=== PATIENT | female | born 1940 | race Caucasian/White ===

== ENCOUNTER → 2018-11-27 08:58 | Outpatient (CLI) | payer MEDICARE, BC, SELFPAY ==
[2018-11-27 10:58] LABS: ALB/GLOB Ratio 1.2 RATIO (0.9-2.4); AST(SGOT) 14 U/L (15-37); Alanine Aminotransfer ALT/SGPT 16 U/L (13-56); Albumin, Serum 3.5 g/dL (3.2-5.0); Alkaline Phosphatase 66 U/L (45-117); Anion Gap 8 (5-15); BUN 20 mg/dL (7-18); Calcium,Total 8.8 mg/dL (8.5-10.1); Chloride 107 mmol/L (98-107); Creatinine, Serum 0.95 mg/dL (0.55-1.02); EST Glomerular Filtration Rate 60 mL/min (>60); Est Glom Filt Rate - Afr Amer 73 mL/min (>60); Glucose 91 mg/dL (74-106); Potassium 4.1 mmol/L (3.5-5.1); Protein, Total 6.5 g/dL (6.4-8.2); Sodium Level 143 mmol/L (136-145)
== END ==
PROVIDERS: Family Provider Family Medicine; PCP Family Medicine; Referring Provider Family Medicine; Visit Provider Family Medicine
DX: E78.2 Mixed hyperlipidemia (principal); R73.01 Impaired fasting glucose
CPT/HCPCS: 36415; 80053

== ENCOUNTER → 2019-10-02 14:16 | Outpatient (CLI) | payer MEDICARE, BC, SELFPAY ==
--- NOTE | 2019-10-02 14:28 | RAD_ITS ---
STUDY: X-RAY - LEFT HUMERUS REASON FOR EXAM: Female, 79 years old. fall, left arm pain and bruising TECHNIQUE: 3 view(s) of the humerus. COMPARISON: None. FINDINGS: There is diffuse demineralization of the humerus. There is no demonstrated fracture or osseous destructive process. 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 There is no demonstrated soft tissue abnormality. RAD/Humerus min 2 Views IMPRESSION: Diffuse osteopenia otherwise normal x-ray examination of the humerus. Electronically Signed: Tish Rush MD at 1:54 EST , Service support ,
--- NOTE | 2019-10-02 14:30 | RAD_ITS ---
STUDY: X-RAY - UNILATERAL RIBS ( LEFT ) WITH CHEST REASON FOR EXAM: Female, 79 years old. fall, left anterior rib pain TECHNIQUE - RIBS: 4 view(s) of the ribs. TECHNIQUE - CHEST: Single AP portable view of the chest. COMPARISON: None. FINDINGS - RIBS: There is severe demineralization of the osseous structures which diminishes the diagnostic sensitivity of this examination, however there is suggestion of subacute to old fracture involving the lateral arches of the left sixth and fifth ribs. FINDINGS - CHEST: The lungs are clear and expanded. There is no demonstrated pleural abnormality. Normal size heart. Normal mediastinum and maureen. Normal visualized pulmonary arteries. There is atherosclerotic calcification of the aortic arch with tortuosity. There are diffuse degenerative changes of the visualized thoracic spine. There is degenerative osteoarthritis of the bilateral shoulders. There is no demonstrated abnormality of the visualized soft tissue structures of the upper abdomen. RAD/Ribs Uni Min 3V w/PA Chest IMPRESSION: RIBS: Possible acute to subacute fracture involving the lateral arches of the left fifth and sixth ribs. CHEST: No acute cardiopulmonary disease. Electronically Signed: Tish Rush MD at 1:59 EST , Service support ,
== END ==
PROVIDERS: Family Provider Family Medicine; PCP Family Medicine; Referring Provider Family Medicine; Visit Provider Family Medicine
DX: M79.603 Pain in arm, unspecified (principal); R07.81 Pleurodynia
CPT/HCPCS: 71101; 73060

== ENCOUNTER 2020-12-02 10:44 | Outpatient (RCR) | payer MEDICARE, SELFPAY | END 2020-12-02 23:59 | LOC: IMMUN 10:44 | PROVIDERS: PCP Family Medicine; Visit Provider Family Medicine | DX: Z23 Encounter for immunization (principal) | CPT/HCPCS: 0011A; 0012A ==

== ENCOUNTER → 2021-01-04 | Outpatient (CLI) | payer MEDICARE, SELFPAY ==
[2021-01-04 09:14] LABS: Bacteria 0 SEEN /hpf (None Seen); Mucous, Urine 0 SEEN /hpf (<or=2+)
[2021-01-04 10:20] LABS: Color, Urine Yellow (Yellow); Glucose, Dipstick Normal (Normal); Ketone-Dipstick Negative (Negative); Leukocyte Esterase-Dipstick 500 /ul (Negative); Nitrite-Dipstick Negative (Negative); Occult Blood-Urine 50 /ul (Negative); Protein-Dipstick Negative (Negative); Urine Bilirubin Dipstick Negative (Negative); Urine Clarity Clear (Clear); Urine Urobilinogen 4 mg/dl (Normal)
[2021-01-04 10:33] LABS: Squamous Epithelial Cells - UA 10-25 SEEN /hpf (5-10); White Blood Cells 0-5 SEEN /hpf (0-5)
[2021-01-04 10:34] LABS: Red Blood Cells-Urine 0-5 SEEN /hpf (0-5)
== END | disposition home or self-care (01) ==
LOC: MFPLAB 09:10 → LABSPEC 09:13
PROVIDERS: PCP Family Medicine; Referring Provider Family Medicine; Visit Provider Family Medicine
DX: R73.01 Impaired fasting glucose (principal)
CPT/HCPCS: 81001

== ENCOUNTER 2021-02-26 10:08 | Emergency (ER) | payer MEDICARE, BC, SELFPAY ==
[2021-02-26 10:10] VITALS: BP 158/75; PULSE 77; RESP 14; TEMP 36.4; O2SAT 98; BMI 26.6
--- NOTE | 2021-02-26 10:33 | EDS_ITS ---
HPI HPI - Female History of Present Illness Chief Complaint: Vag Bleeding Informant: patient and family Pain Pain: Negative for Pelvic Pain, Vulvar Pain and Vaginal Pain Bleeding Issue: Positive for Vaginal bleeding and Passing clots Onset: Today Timing: Intermittent Current Severity: Mild Severity: Mild Associated Symptoms Associated Symptoms: Negative for Dysuria, Frequency and Urgency Test: Positive Sexually: Negative for Active Narrative Narrative: 80-year-old female noticed vaginal bleeding today with small amount of clots. She is on no blood thinners. She denies any recent bruising, nosebleeds, hematuria nor melena. She has had a prior tubal ligation and appendectomy years ago. She denies any other complaints. Prior similar symptoms: No Recent Illness/Hospitalization: No PFSH PFSH Medical History (Updated 02/26/21 @ 11:[address] Ricardo Wilkinson MD) Depressed Hyperlipidemia Hypertension Home Medications citalopram 20 mg PO DAILY 02/26/21 [History Last Taken Unknown] furosemide 20 mg PO DAILY 02/26/21 [History Last Taken Unknown] metoprolol succinate 50 mg PO DAILY 02/26/21 [History Last Taken Unknown] simvastatin 10 mg PO DAILY 02/26/21 [History Last Taken Unknown] Allergy/AdvReac Type Severity Reaction Status Date / Time No Known Allergies Allergy Verified 02/26/21 10:09 Surgical History (Updated 02/26/21 @ 10:40 by Kandi Hernandez) History of appendectomy Hx of tubal ligation Social History Smoking Status: Current every day smoker ROS ROS ED ROS Narrative She denies any recent illness. Review of Systems ROS Unobtainable: Denies due to encephalopathy Constitutional Constitutional ED: Denies fever(s) Eyes Eyes: Denies change in vision ENT ENT ED: Denies ear pain or sore throat Cardiovascular Cardiovascular: Denies chest pain Respiratory/Chest Respiratory/Chest: Denies dyspnea Gastrointestinal Gastrointestinal: Denies abdominal pain, diarrhea, nausea or vomiting Genitourinary Genitourinary ED: Denies dysuria, hematuria or urinary frequency Musculoskeletal Musculoskeletal: Denies myalgias Integumentary Denies rash Neurologic Neurologic: Denies headache(s) Psychiatric Psychiatric: Denies depression Endocrine Endocrinology: Denies polyuria Hematologic/Lymphatic Hematologic/Lymphatic: Denies easy bruising Allergic/Immunologic Allergic/Immunologic ED: Denies urticaria EXAM Physical Exam Narrative Exam Narrative: Older female no acute distress. Vital signs stable afebrile. Exam benign. Const Vital Signs: 02/26/21 10:10 Temperature 97.5 F L Temperature Source Temporal Pulse Rate 77 Respiratory Rate 14 Blood Pressure 158/75 H Blood Pressure Mean 102 Pulse Ox 98 Oxygen Delivery Method Room Air Positive well nourished and well developed General Appearance ED: well developed HEENT Reports moist mucous membranes Negative for trauma or tenderness Eyes PERRL and EOMs intact bilaterally Neck no lymphadenopathy, supple and no JVD Chest Wall inspection of chest normal Resp normal respiratory effort and clear to auscultation bilaterally Cardio regular rate, regular rhythm and no murmurs GI normal to inspection, nondistended, normoactive bowel sounds, soft to palpation, non-tender, non-distended and no masses Auscultation: normoactive bowel sounds Palpation: Negative for tender no CVA tenderness Back/Spine no CVA tenderness Extremity normal to inspection and full ROM General Extremety ED: Negative for edema or tenderness General Extremity: Negative for edema Neuro oriented x3 and CN's II-XII intact bilaterally Sensorium / Orientation: alert, oriented to person, oriented to place and oriented to time Psych mental status grossly normal Skin no rashes or lesions noted MDM MDM MDM Narrative Medical decision making narrative: 80-year-old female with vaginal bleeding. Wi ll obtain a blood count and a pelvic exam. Pelvic exam revealed mild vaginal bleeding with clots. No pain. No palpable mass. No discharge. I spoke with Dr. Anaid Santo of [facility] and she will see the patient in follow-up this week. Patient will receive an outpatient ultrasound through their office. Lab Data Attestation: I reviewed the patient's lab results. Lab results narrative: White count normal. Hemoglobin normal at 13.4. Normal platelets. Labs: Laboratory Results - last 24 hr 02/26/21 10:45 WBC 9.1 RBC 5.01 Hgb 13.4 Hct 43.5 MCV 86.8 MCH 26.7 L MCHC 30.8 L RDW Std Deviation 43.0 RDW Coeff of Jael 13.6 Plt Count 171 MPV 9.0 Discharge Plan Triage Chief Complaint: Vag Bleeding ED Provider: Ricardo Wilkinson Dx/Rx/DC Orders Clinical Impression: Abnormal vaginal bleeding Instructions: ED Dysfunctional Uterine Bleeding Prescriptions: No Action metoprolol succinate 50 mg tablet extended release 24 hr 50 mg PO DAILY RF: 0 simvastatin 10 mg tablet 10 mg PO DAILY RF: 0 citalopram 20 mg tablet 20 mg PO DAILY RF: 0 furosemide 20 mg tablet 20 mg PO DAILY RF: 0 Primary Care Provider: Joey Vidal Referrals: Joey Vidal MD [Primary Care Provider] - Scarlett Starr MD [STAFF PHYSICIAN] - As soon as possible Activity Restrictions/Additional Instructions: Call tomorrow Roxie [employer]ATOR and set up appointment with Dr. Anaid Santo as soon as possible this week. Plenty of fluids and rest. You will continue to have some bleeding if it progressively worsens or you feel lightheaded you need to return. At this time your blood counts are normal. Disposition Disposition: Home, self care
[2021-02-26 10:52] LABS: Hematocrit 43.5 % (37-47); Hemoglobin 13.4 g/dL (12.0-15.0); Mean Corp Hgb Conc 30.8 g/dL (32-36); Mean Corpuscular Hgb 26.7 pg (27.0-32.0); Mean Corpuscular Volume 86.8 fL (81-99); Platelet Count 171 K/mm3 (150-450); RBC Distribution Width CV 13.6 % (11.6-14.6); Red Blood Count 5.01 M/mm3 (4.2-5.4); White Blood Count 9.1 K/mm3 (4.4-11.0)
[2021-02-26 11:45] VITALS: BP 138/72; PULSE 86; RESP 15; O2SAT 96
== END 2021-02-26 11:46 | disposition home or self-care (01) ==
PROVIDERS: Emergency Provider Emergency Medicine; PCP Family Medicine
DX: N93.8 Other specified abnormal uterine and vaginal bleeding (principal); I10 Essential (primary) hypertension; E78.5 Hyperlipidemia, unspecified; F32.9 Major depressive disorder, single episode, unspecified; F17.200 Nicotine dependence, unspecified, uncomplicated; Z79.899 Other long term (current) drug therapy
CPT/HCPCS: 36415; 85027; 99282; J7030; A4216

== ENCOUNTER → 2021-02-28 | Outpatient (CLI) | payer MEDICARE, BC, SELFPAY ==
[2021-02-26 10:10] VITALS: BMI 26.6
--- NOTE | 2021-02-28 | VAGW_PTH ---
PATIENT: CONSTANZA YOUNGBLOOD LOC: [facility] U#:[id number] AGE/SX: 80/F ROOM: RE02/28/[address]: Dr. Scarlett Santo MD : 1940 BED: DIS: 02/28/2021 SPEC #: [id number] RECD: 02/28/21 13:30 STATUS: FERMIN RERonnell #: [id number] ATIYA: 02/28/21 00:[address]: Scarlett Starr DEPT: SURGICAL PATHOLOGY RECD BY: Carlos Vargas ENTERED: 03/01/21 08:59 SP TYPE: VAG WALL OTHR DR: Dr. Rufus Vidal MD Tissues: Vagina, NOS Procedures: Surgery Specimen Level IV HEADER OPERATION: Vaginal lesion PRE-OP DIAGNOSIS: Vaginal bleeding, ulcerative lesion at left vaginal fornix TISSUE SUBMITTED: Vaginal lesion MICROSCOPIC DIAGNOSIS Vaginal lesion, biopsy: Fragments of squamous mucosa with acute and chronic inflammation and recent hemorrhage. Focal changes suggestive of lichen sclerosus. Negative for malignancy. See comment. SJ:rg 03/02/2021 COMMENT Clinical correlation and appropriate follow up are necessary. Case has been reviewed in consultation with Dr. Garcia who concurs with the above diagnosis. IDC:AM MICROSCOPIC DESCRIPTION Slides are reviewed. GROSS DESCRIPTION Received is one container labeled with the patient's name and not further designated. The specimen consists of two fragments of hemorrhagic soft tissue that in aggregate measure 0.7 x 0.2 x 0.2 cm. The specimen is totally submitted in one cassette. / TARA:arcelia 03/01/21 TC:5 CPT: 74251
== END | disposition home or self-care (01) ==
LOC: LABSPEC 11:10
PROVIDERS: PCP Family Medicine; Visit Provider Obstetrics & Gynecology
DX: N93.9 Abnormal uterine and vaginal bleeding, unspecified (principal); L98.499 Non-pressure chronic ulcer of skin of other sites with unspecified severity
CPT/HCPCS: 88305

== ENCOUNTER → 2022-12-11 | Outpatient (CLI) | payer MEDICARE, BC, SELFPAY ==
[2022-12-11 13:03] LABS: PTHIN 75.8 pg/mL (18.4-80.1); Vitamin D,25 Hydroxy 63.4 ng/mL
[2022-12-11 13:41] LABS: AST(SGOT) 16 U/L (15-37); Alanine Aminotransfer ALT/SGPT 15 U/L (13-56); Albumin, Serum 3.3 g/dL (3.2-5.0); Alkaline Phosphatase 56 U/L (45-117); Anion Gap 6 (5-15); BUN 18 mg/dL (7-18); BUN/Creat Ratio 19.5 RATIO (10-20); Chloride 108 mmol/L (98-107); Cholesterol 179 mg/dL (200); Creatinine, Serum 0.92 mg/dL (0.55-1.02); EST Glomerular Filtration Rate 62 mL/min (>60); Est Glom Filt Rate - Afr Amer 75 mL/min (>60); Globulin 3.3 g/dL (2.2-4.2); Glucose 92 mg/dL (74-106); High Density Lipoprotein 71 mg/dL; Potassium 3.6 mmol/L (3.5-5.1); Protein, Total 6.6 g/dL (6.4-8.2); Sodium Level 143 mmol/L (136-145); Thyroid Stim Hormone (TSH) 0.91 uIU/mL (0.358-3.74); Triglycerides 91 mg/dL; Very Low Density Lipoprotein 18 mg/dL (5-40)
== END | disposition home or self-care (01) ==
LOC: MTLAB 11:09
PROVIDERS: PCP Family Medicine; Referring Provider Family Medicine; Visit Provider Family Medicine
DX: E78.2 Mixed hyperlipidemia (principal); M85.80 Other specified disorders of bone density and structure, unspecified site
CPT/HCPCS: 36415; 80053; 80061; 82306; 83970; 84443

== ENCOUNTER 2023-05-16 19:47 | Emergency (ER) | payer MEDICARE, BC, SELFPAY ==
[2023-05-16 19:47] VITALS: BP 142/67; PULSE 67; RESP 18; TEMP 36; O2SAT 98
[2023-05-16 19:55] VITALS: BMI 26.4
[2023-05-16] MEDS: Naproxen 500 MG Tablet PO (20:24)
--- NOTE | 2023-05-16 20:30 | RAD_ITS ---
STUDY: X-RAY - LEFT ANKLE REASON FOR EXAM: Female, 83 years old. pain TECHNIQUE: 3 view(s) of the ankle. COMPARISON: None. FINDINGS: Normal visualized distal tibia and fibula. Normal medial and lateral malleoli. Normal tibiotalar articulation and ankle mortise. Normal visualized calcaneus. Tiny bony density is noted dorsal to the talus possibly representing avulsion fracture The visualized subtalar, talonavicular, calcaneocuboid and tarsal articulations are normal. Mild soft tissue swelling overlying the lateral malleolus RAD/Ankle min 3 Views IMPRESSION: Mild lateral malleolus sprain.. No evidence for acute fracture or dislocation of the ankle. Cannot definitively exclude tiny cortical avulsion of the dorsal surface of the talus Electronically Signed: Teto Alvarado MD at 21:12 EDT ,
--- NOTE | 2023-05-16 20:40 | RAD_ITS ---
STUDY: X-RAY - LEFT FOOT CLINICAL: Female, 83 years old. pain TECHNIQUE: 3 view(s) of the foot. COMPARISON: None. FINDINGS: Normal calcaneus, and tarsal bones. Possible acute tiny avulsion fracture of the dorsal surface of the talus Normal visualized subtalar, talonavicular, calcaneocuboid, tarsal and tarsometatarsal articulations. Normal metatarsi. Normal metatarsophalangeal joint of the great toe. Normal tibial and fibular sesamoid bones. Normal interphalangeal joint of the great toe. Normal phalanges of the great toe. Normal second through fifth metatarsophalangeal joints. Normal interphalangeal joints and phalanges of the lesser toes. Soft tissue swelling of the lateral foot.. RAD/Foot min 3 Views IMPRESSION: Cannot exclude tiny cortical avulsion fracture of the dorsal talus. . Otherwise no evidence for acute fracture or dislocation Electronically Signed: Teto Alvarado MD at 21:21 EDT ,
--- NOTE | 2023-05-16 21:21 | ED.VIS.LOWEX ---
HPI History of Present Illness Chief Complaint: Lower Extremity Injury Narrative Narrative: 83-year-old female presenting with left ankle pain. She states she bumped her ankle on the side of the fridge. She did not notice any pain when this happened extra-depth swelling left lateral ankle and now it hurts. No numbness or tingling. No new injury after this. Otherwise healthy. [facility] Medical History Depressed Hyperlipidemia Hypertension Home Medications citalopram 20 mg tablet 40 mg PO DAILY 02/26/21 [History Last Taken Unknown] furosemide 20 mg tablet 20 mg PO DAILY 02/26/21 [History Last Taken Unknown] metoprolol succinate 50 mg tablet,extended release 24 hr 50 mg PO DAILY 02/26/21 [History Last Taken Unknown] simvastatin 10 mg tablet 10 mg PO DAILY 02/26/21 [History Last Taken Unknown] Allergy/AdvReac Type Severity Reaction Status Date / Time No Known Allergies Allergy Verified 05/16/23 19:54 Surgical History History of appendectomy Hx of tubal ligation Social History Smoking Status: Current every day smoker tobacco type: cigarettes ROS ROS ED Constitutional Constitutional ED: Denies chills, fever(s) or sweats Eyes Eyes: Denies blurry vision or change in vision ENT ENT ED: Denies ear pain or sore throat Cardiovascular Cardiovascular: Denies chest pain, palpitations or racing heartbeat Respiratory/Chest Respiratory/Chest: Denies cough, dyspnea or sputum Gastrointestinal Gastrointestinal: Denies abdominal pain, constipation, diarrhea, nausea or vomiting Genitourinary Genitourinary ED: Denies dysuria, hematuria or urinary frequency Musculoskeletal Musculoskeletal: Reports other Details: Left ankle pain ; Denies arthralgias, myalgias or neck pain Integumentary Reports other; Denies abscess, Abrasions or rash Neurologic Neurologic: Reports other; Denies headache(s), paresthesias or weakness Psychiatric Psychiatric: Denies anxiety, depression, suicidal ideation or suicidal thoughts Endocrine Endocrinology: Denies polydipsia or polyuria EXAM Physical Exam Const Vital Signs: 05/16/23 19:47 Temperature 96.8 F L Temperature Source Temporal Pulse Rate 67 Respiratory Rate 18 Blood Pressure 142/67 H Blood Pressure Mean 92 Pulse Ox 98 Oxygen Delivery Method Room Air Positive well nourished General Appearance ED: NAD HEENT Reports moist mucous membranes normocephalic Cardio regular rate and regular rhythm Extremity Extremity Narrative: Tenderness to palpation and edema over the lateral malleolus of the left ankle. No palpable foot tenderness but there is some edema. No pain at the base of the fifth metatarsal. No testicular pain. Neuro oriented x3 and CN's II-XII intact bilaterally Sensorium / Orientation: alert Motor Exam: strength 5/5 throughout Skin no wounds MDM MDM MDM Narrative Medical decision making narrative: Patient presenting with left ankle pain. There are some edema in the foot as well. Will obtain ankle and foot x-ray. Differential includes ankle sprain, ankle fracture, foot contusion, foot fracture. Patient was given Naprosyn. Left ankle x-ray my interpretation is no acute fracture of the ankle. The foot x-ray my interpretation may show a tiny cortical avulsion fracture of the talus. Given this I will put her in a walking boot give her crutches. She will be given follow-up with Dr. Bingham. Impression: 1. Avulsion fracture of talus 2. Ankle sprain Radiography Diagnostic Testing: Clinical Impression(s) from Imaging Studies Ankle X-Ray 05/16/23 20:30 IMPRESSION: Mild lateral malleolus sprain.. No evidence for acute fracture or dislocation of the ankle. Cannot definitively exclude tiny cortical avulsion of the dorsal surface of the talus Electronically Signed: Teto Alvarado MD at 21:12 EDT , Foot X-Ray 05/16/23 20:40 IMPRESSION: Cannot exclude tiny cortical avulsion fracture of the dorsal talus. . Otherwise no evidence for acute fracture or dislocation Electronically Signed: Teto Alvarado MD at 21:21 EDT , Discharge Plan Triage Chief Complaint: Lower Extremity Injury ED Provider: Otis Jalloh Dx/Rx/DC Orders Instructions: ED Fracture, Foot, ED Ankle Sprain (Adult) Prescriptions: No Action metoprolol succinate 50 mg tablet extended release 24 hr 50 mg PO DAILY Patient Comments: TAKE 1 TABLET BY MOUTH DAILY simvastatin 10 mg tablet 10 mg PO DAILY Patient Comments: TAKE 1 TABLET BY MOUTH DAILY citalopram 20 mg tablet 40 mg PO DAILY Patient Comments: TAKE 1 & 1/2 TABLET BY MOUTH DAILY furosemide 20 mg tablet 20 mg PO DAILY Patient Comments: TAKE 1/2 TABLET BY MOUTH TWICE DAILY Primary Care Provider: Joey Vidal Referrals: Joey Vidal MD [Primary Care Provider] - Amadeo Bingham DPM [Med Staff - Active Staff] - 3-5 Days Disposition Disposition: Home, Self Care
== END 2023-05-16 21:53 | disposition home or self-care (01) ==
PROVIDERS: Emergency Provider Student in an Organized Health Care Education/Training Program; PCP Family Medicine; Visit Provider Student in an Organized Health Care Education/Training Program
DX: S92.155A Nondisplaced avulsion fracture (chip fracture) of left talus, initial encounter for closed fracture (principal); S93.402A Sprain of unspecified ligament of left ankle, initial encounter; W22.09XA Striking against other stationary object, initial encounter; I10 Essential (primary) hypertension; E78.5 Hyperlipidemia, unspecified; F17.210 Nicotine dependence, cigarettes, uncomplicated; Z79.899 Other long term (current) drug therapy
CPT/HCPCS: 73610; 73630; 99283

== ENCOUNTER → 2024-09-25 | Outpatient (CLI) | payer MEDICARE, BC, SELFPAY ==
[2024-09-25 10:25] LABS: Hematocrit 44.7 % (37-47); Hemoglobin 13.9 g/dL (12.0-15.0); Mean Corp Hgb Conc 31.1 g/dL (32-36); Mean Corpuscular Hgb 26.6 pg (27.0-32.0); Mean Corpuscular Volume 85.6 fL (81-99); Platelet Count 193 K/mm3 (150-450); RBC Distribution Width CV 15.1 % (11.6-14.6); RBC Distribution Width SD 47.6 fl (35.1-43.9); Red Blood Count 5.22 M/mm3 (4.2-5.4); White Blood Count 8.6 K/mm3 (4.4-11.0)
[2024-09-25 10:51] LABS: Vitamin B12 426 pg/mL (211-911); Vitamin D,25 Hydroxy 65.6 ng/mL
== END | disposition home or self-care (01) ==
LOC: MTLAB 09:09
PROVIDERS: PCP Family Medicine; Referring Provider Family Medicine; Visit Provider Family Medicine
DX: G31.84 Mild cognitive impairment of uncertain or unknown etiology (principal)
CPT/HCPCS: 36415; 82306; 82607; 84443; 85027

== ENCOUNTER → 2024-10-14 | Outpatient (CLI) | payer MEDICARE, BC, SELFPAY ==
--- NOTE | 2024-10-14 16:23 | LES_PTH ---
PATIENT: CONSTANZA YOUNGBLOOD LOC: [facility] U#:[id number] AGE/SX: 84/F ROOM: RE10/14/[address]: Dr. Rufus Vidal MD : 1940 BED: DIS: 10/14/2024 SPEC #: [id number] RECD: 10/15/24 09:53 STATUS: FERMIN MACARIO #: [id number] ATIYA: 10/14/24 16:[address]: Rufus Vidal DEPT: SURGICAL PATHOLOGY RECD BY: Marcos Hilario Tissues: Skin of forearm, NOS Procedures: Surgery Specimen Level IV HEADER OPERATION: Left forearm biopsy PRE-OP DIAGNOSIS: Suspicious of squamous cell carcinoma TISSUE SUBMITTED: Excision of left forearm MICROSCOPIC DIAGNOSIS Left forearm lesion, excisional biopsy: Well differentiated invasive squamous cell carcinoma, completely excised. Verrucous keratosis. Solar elastosis. See nayana. 10/19/2024 COMMENT Invasive carcinoma measures 0.1cm in greatest dimension. Perineural and lymphvascular invasion are not identified. This case has been reviewed in consultation with Dr. Lakhani and Dr. Acosta who concurs with the above diagnosis. IDC: ALFRED FELDMAN MICROSCOPIC DESCRIPTION Slides are reviewed. GROSS DESCRIPTION Received in fixative is one container labeled with the patient's name and designated Left forearm. The specimen consists of a cristobal-white skin ellipse measuring 2.0 x 1.0cm and up to 0.4cm in thickness. Skin surface shows a white round lesion measuring 1.0 x 0.9cm. The specimen is inked, serially sectioned and submitted entirely in one cassette. 10/15/2024 TC:0 CPT:93963
== END | disposition home or self-care (01) ==
LOC: LABSPEC 10-15 08:43
PROVIDERS: PCP Family Medicine; Visit Provider Family Medicine
DX: C76.42 Malignant neoplasm of left upper limb (principal); L57.8 Other skin changes due to chronic exposure to nonionizing radiation; L82.0 Inflamed seborrheic keratosis
CPT/HCPCS: 88305

== ENCOUNTER → 2025-09-10 | Outpatient (CLI) | payer MEDICARE, BC, SELFPAY ==
--- OUTSIDE RECORDS SUMMARY | 2025-09-10 09:01 | XMS RPT_ITS | CCD ---
Author Organization [facility] Care Team Providers Care [employer] Teacher Name Role Phone DEAAN BRIDGES Admitting Unavailable DEANA BRIDGES Attending Unavailable SELF, REFERRED Referring Unavailable JESSICA, OLEKSANDR Primary Care Unavailable Unavailable Primary Care Provider Unavailabl e Unavailable Primary Care Provider Unavailabl e Unavailable Primary Care Provider Unavailabl e Unavailable Primary Care Provider Unavailabl e Unavailable Primary Care Provider Unavailabl e Siders DO, Tacos L Primary Care Provider DARIAN BELTRAN Admitting Unavailable DARIAN BELTRAN Attending Unavailable EDUARDO, NASHEED Referring Unavailable VASKO, JUAN W Referring Unavailable VASKOJUAN W Referring Unavailable EDUARDO, NASHEED Referring Unavailable EDUARDO, GRACYEED Referring Unavailable Rufus Vidal Referring Unavailable Rufus Vidal Attending Unavailable Ruufs Vidal Primary Care Unavailable Rufus Vidal Attending Unavailable Rufus Vidal Primary Care Unavailable SIDERS, TACOS L Referring Unavailable SIDERS, ATCOS L Primary Care Unavailable SIDERS, TACOS L Primary Care Unavailable SIDERS, TACOS L Referring Unavailable SIDERS, TACOS L Referring Unavailable SIDERS, TACOS L Primary Care Unavailable SIDERS, TACOS L Primary Care Unavailable SIDERS, TACOS L Referring Unavailable SIDERS, TACOS L Referring Unavailable SIDERS, TACOS L Primary Care Unavailable SIDERS, TACOS L Primary Care Unavailable SIDERS, TACOS L Referring Unavailable SIDERS, TACOS L Referring Unavailable SIDERS, TACOS L Primary Care Unavailable SIDERS, TACOS L Primary Care Unavailable SIDERS, TACOS L Referring Unavailable SIDERS, TACOS L Referring Unavailable SIDERS, TACOS L Primary Care Unavailable SIDERS, TACOS L Primary Care Unavailable SIDERS, TACOS L Referring Unavailable SIDERS, TACOS L Primary Care Unavailable SIDERS, ATCOS L Referring Unavailable SIDERS, TACOS L Referring Unavailable SIDERS, TACOS L Primary Care Unavailable SIDERS, TACOS L Primary Care Unavailable SIDERS, TACOS L Referring Unavailable SIDERS, TACOS L Primary Care Unavailable SIDERS, TACOS L Referring Unavailable SIDERS, TACOS L Primary Care Unavailable SIDERS, TACOS L Referring Unavailable SIDERS, TACOS L Primary Care Unavailable SIDERS, TACOS L Referring Unavailable Allergies Allergy Classification Reported Allergen(s) Allergy Type Date of Onset Reaction(s) Facility (2 sources) HYDROcodone; Translations: [HYDROCODONE] Drug Allergy 05-07-[address] [facility] Rep[facility] Medications Current Medications Medication Drug Class(es) Dates Sig (Normalized) Sig (Original) citalopram 20 mg oral tablet (2 sources) Serotonin Reuptake Inhibitor Start: 02-26-2021 take 40 mg by mouth once daily Citalopram Active 40 MG PO DAILY February 26, 2021 12:00am Start: 02-26-2021 take 20 mg by mouth once daily Citalopram Active 20 MG PO DAILY February 25, 2021 11:00pm furosemide 20 mg oral tablet (2 sources) Loop Diuretic Start: 02-26-2021 take 20 mg by mouth once daily Furosemide Active 20 MG PO DAILY February 26, 2021 12:00am 24 hr metoprolol succinate 50 mg extended release oral tablet (2 sources) beta-Adrenergic Grzegorz Start: 02-26-2021 take 50 mg by mouth once daily Metoprolol Succinate Active 50 MG PO DAILY February 26, 2021 12:00am simvastatin 10 mg oral tablet (2 sources) HMG-CoA Reductase Inhibitor Start: 02-26-2021 take 10 mg by mouth once daily Simvastatin Active 10 MG PO DAILY February 26, 2021 12:00am Problems Active Problems Problem Classification Problem Date Documented Date Episodic/Chronic Cardiac dysrhythmias (2 sources) Unspecified atrial fibrillation; Translations: [Unspecified atrial fibrillation] Onset: 07-15-2024 Chronic Chronic kidney disease (2 sources) Chronic kidney disease, unspecified; Translations: [Chronic kidney disease, unspecified] Onset: 02-26-2025 Chronic Deficiency and other anemia (2 sources) Iron deficiency anemia, unspecified; Translations: [Iron deficiency anemia, unspecified] Onset: 12-16-2024 Episodic Diseases of white blood cells (2 sources) Elevated white blood cell count, unspecified; Translations: [Elevated white blood cell count, unspecified] Onset: 05-08-2024 Chronic Disorders of lipid metabolism (2 sources) Hyperlipidemia, unspecified; Translations: [Hyperlipidemia, unspecified] Onset: 05-01-2024 Chronic E Codes: Fall (2 sources) Unspecified fall, initial encounter; Translations: [Unspecified fall, initial encounter] Onset: 10-17-2024 Episodic Essential hypertension (2 sources) Essential (primary) hypertension; Translations: [Essential (primary) hypertension] Onset: 02-26-2025 Chronic Open wounds of head; neck; and trunk (2 sources) Laceration without foreign body of other part of head, initial encounter; Translations: [Laceration without foreign body of other part of head, initial encounter] Onset: 10-17-2024 Episodic Other female genital disorders (2 sources) Abnormal vaginal bleeding; Translations: [Abnormal uterine and vaginal bleeding, unspecified] 02-26-2021 Chronic Other hereditary and degenerative nervous system conditions (1 source) Mild cognitive impairment, so stated; Translations: [Mild cognitive impairment of uncertain or unknown etiology] Onset: 10-22-2024 Chronic Other skin disorders (1 source) Disorder of the skin and subcutaneous tissue, unspecified; Translations: [Disorder of the skin and subcutaneous tissue, unspecified] Onset: 11-06-2024 Episodic Thyroid disorders (2 sources) Hypothyroidism, unspecified; Translations: [Hypothyroidism, unspecified] Onset: 02-26-2025 Chronic Unclassified (1 source) Contusion and laceration of cerebrum, unspecified, with loss of consciousness status unknown, initial encounter; Translations: [Contusion and laceration of cerebrum, unspecified, with loss of consciousness status unknown, initial encounter] Onset: 10-17-2024 Urinary tract infections (2 sources) Urinary tract infection, site not specified; Translations: [Urinary tract infection, site not specified] Onset: 10-17-2024 Episodic Past or Other Problems Problem Classification Problem Date Documented Da te Episodic/Chronic Deficiency and other anemia (2 sources) Anemia, unspecified; Translations: [Anemia, unspecified] Onset: 05-01-2024 Episodic Gastrointestinal hemorrhage (2 sources) Hemorrhage of anus and rectum; Translations: [Hemorrhage of anus and rectum] Onset: 08-14-2024 Episodic Nutritional deficiencies (2 sources) Iron deficiency; Translations: [Iron deficiency] Onset: 08-12-2024 Episodic Unclassified (1 source) Contusion and laceration of cerebrum, unspecified, with loss of consciousness status unknown, initial encounter; Translations: [Contusion and laceration of cerebrum, unspecified, with loss of consciousness status unknown, initial encounter] Onset: 10-17-2024 Results Test Name Value Interpretation Reference Range Facility CBCon 02-26-2025 Erythrocyte distribution width (RBC) [Ratio] 13.9 % Normal 11.8-14.4 [facility] Comment on above: Performed By: #### B MP, LIVP, CBC #### [facility] [address] [place] [address] Community Health Navigator: Bin Mckeon MD #### KIKE GLYHGB #### [address] [id number] Community Health Navigator: Willie Garcia MD Hematocrit (Bld) [Volume fraction] 35.3 % Low 36.3-47.1 [facility] Comment on above: Performed By: #### B MP, LIVP, CBC #### [facility] [address] [place] [address] Community Health Navigator: Bin Mckeon MD #### LIPR, GLYHGB #### [address] [id number] Community Health Navigator: Willie Garcia MD Hemoglobin (Bld) [Mass/Vol] 11.3 g/dL Low 11.9-15.1 [facility] Comment on above: Performed By: #### B MP, LIVP, CBC #### [facility] [address] [place] [address] Community Health Navigator: Bin Mckeon MD #### LIPR, GLYHGB #### [address] [address] Community Health Navigator: Willie Garcia MD MCH (RBC) [Entitic mass] 27.7 pg Normal 25.2-33.5 [facility] Comment on above: Performed By: #### B MP, LIVP, CBC #### [facility] [address] [place] [address] Community Health Navigator: Bin Mckeon MD #### LIPR, GLYHGB #### [address] [address] Community Health Navigator: Willie Garcia MD MCHC (RBC) [Mass/Vol] 32.0 g/dL Normal 28.4-34.8 [facility] Comment on above: Performed By: #### B MP, LIVP, CBC #### [facility] [address] [place] [address] Community Health Navigator: Bin Mckeon MD #### LIPR, GLYHGB #### [address] [address] Community Health Navigator: Willie Garcia MD MCV (RBC) [Entitic vol] 86.5 fL Normal 82.6-102.9 [facility] Comment on above: Performed By: #### B MP, LIVP, CBC #### [facility] [address] [place] [address] Community Health Navigator: Bin Mckeon MD #### LIPR, GLYHGB #### [address] [address] Community Health Navigator: Willie Garcia MD NRBC Automated 0.0 per 100 WBC Normal 0.0 [facility] Comment on above: Performed By: #### B MP, LIVP, CBC #### [facility] [address] [place] [address] Community Health Navigator: Bin Mckeon MD #### LIPR, GLYHGB #### [address] [address] Community Health Navigator: Willie Garcia MD Platelet mean volume (Bld) [Entitic vol] 9.9 fL Normal 8.1-13.5 [facility] Comment on above: Performed By: #### B MP, LIVP, CBC #### [facility] [address] [place] [address] Community Health Navigator: Bin Mckeon MD #### LIPR, GLYHGB #### [address] [address] Community Health Navigator: Willie Garcia MD Platelets (Bld) [#/Vol] 138 10*3/uL Normal 138-453 [facility] Comment on above: Performed By: #### B MP, LIVP, CBC #### [facility] [address] [place] [address] Community Health Navigator: Bin Mckeon MD #### LIPR, GLYHGB #### [address] [address] Community Health Navigator: Willie Garcia MD RBC (Bld) [#/Vol] 4.08 10*6/uL Normal 3.95-5.11 [facility] Comment on above: Performed By: #### B MP, LIVP, CBC #### [facility] [address] [place] [address] Community Health Navigator: Bin Mckeon MD #### LIPR, GLYHGB #### [address] [address] Community Health Navigator: Willie Garcia MD WBC (Bld) [#/Vol] 5.7 10*3/uL Normal 3.5-11.3 [facility] Comment on above: Performed By: #### B MP, LIVP, CBC #### [facility] [address] [place] [address] Community Health Navigator: Bin Mckeon MD #### LIPR, GLYHGB #### [address] [address] Community Health Navigator: Willie Garcia MD Comp Metabolic Profon 2024 Albumin [Mass/Vol] 3.9 g/dL Normal 3.5-5.2 [facility] Comment on above: Performed By: #### B MP, LIVP, CBC #### [facility] [address] [place] [address] Community Health Navigator: Bin Mckeon MD #### LIPR, GLYHGB #### [address] [address] Community Health Navigator: Willie Garcia MD Albumin/Glob Ratio 1.3 Normal 1.0-2.5 [facility] Comment on above: Performed By: #### B MP, LIVP, CBC #### [facility] [address] [place] [address] Community Health Navigator: Bin Mckeon MD #### LIPR, GLYHGB #### [address] [address] Community Health Navigator: Willie Garcia MD Alkaline Phos 90 U/L Normal 35-104 [facility] Comment on above: Performed By: #### B MP, LIVP, CBC #### [facility] [address] [place] [address] Community Health Navigator: Bin Mckeon MD #### LIPR, GLYHGB #### [address] [address] Community Health Navigator: Willie Garcia MD ALT [Catalytic activity/Vol] 6 U/L Low 10-35 [facility] Comment on above: Performed By: #### B MP, LIVP, CBC #### [facility] [address] [place] [address] Community Health Navigator: Bin Mckeon MD #### LIPR, GLYHGB #### [address] [address] Community Health Navigator: Willie Garcia MD Anion gap [Moles/Vol] 10 mmol/L Normal 9-16 [facility] Comment on above: Performed By: #### B MP, LIVP, CBC #### [facility] [address] [place] [address] Community Health Navigator: Bin Mckeon MD #### LIPR, GLYHGB #### [address] [address] Community Health Navigator: Willie Garcia MD AST [Catalytic activity/Vol] 17 U/L Normal -[address] [place] [address] Comment on above: Performed By: #### B MP, LIVP, CBC #### [facility] [address] [place] [address] Community Health Navigator: Bin Mckeon MD #### LIPR, GLYHGB #### [address] [address] Community Health Navigator: Willie Gracia MD Bilirubin [Mass/Vol] 0.4 mg/dL Normal 0.00-1.20 [facility] Comment on above: Performed By: #### B MP, LIVP, CBC #### [facility] [address] [place] [address] Community Health Navigator: Bin Mckeon MD #### LIPR, GLYHGB #### [address] [address] Community Health Navigator: Willie Garcia MD Calcium [Mass/Vol] 9.8 mg/dL Normal 8.8-10.2 [facility] Comment on above: Performed By: #### B MP, LIVP, CBC #### [facility] [place] [address] Community Health Navigator: Bin Mckeon MD #### LIPR, GLYHGB #### [address] [address] Community Health Navigator: Willie Garcia MD Chloride [Moles/Vol] 109 mmol/L High 98-107 [facility] Comment on above: Performed By: #### B MP, LIVP, CBC #### [facility] [address] [place] [address] Community Health Navigator: Bin Mckeon MD #### KIKE, GLYHGB #### [address] [address] Community Health Navigator: Willie Garcia MD CO2 [Moles/Vol] 24 mmol/L Normal 20-31 [facility] Comment on above: Performed By: #### B MP, LIVP, CBC #### [facility] [address] [place] [address] Community Health Navigator: Bin Mckeon MD #### LIPR, GLYHGB #### [address] [address] Community Health Navigator: Willie Garcia MD Creatinine [Mass/Vol] 1.6 mg/dL High 0.50-0.90 [facility] Comment on above: Performed By: #### B MP, LIVP, CBC #### [facility] [address] [place] [address] Community Health Navigator: Bin Mckeon MD #### KIKE, GLYHGB #### [address] [address] Community Health Navigator: Willie Garcia MD GFR/1.73 sq M.predicted among non-blacks MDRD (S/P/Bld) [Vol rate/Area] 32 mL/min/{1.73_m2} Low >60 [facility] Comment on above: Result Comment: These results are not intended for use in patients <18 years of age. eGFR results are calculated without a race factor using the 2020 CKD-EPI equation. Careful clinical correlation is recommended, particularly when comparing to results calculated using previous equations. The CKD-EPI equation is less accurate in patients with extremes of muscle mass, extra-renal metabolism of creatine, excessive creatine ingestion, or following therapy that affects renal tubular secretion. Performed By: #### B MP, LIVP, CBC #### [facility] [address] [place] [address] Community Health Navigator: Bin Mckeon MD #### KIKE GLYHGB #### [address] [address] Community Health Navigator: Willie Garcia MD Glucose [Mass/Vol] 85 mg/dL Normal 82-115 [facility] Comment on above: Performed By: #### B MP, LIVP, CBC #### [facility] [address] [place] [address] Community Health Navigator: Bin Mckeon MD #### LIPZander, GLYHGB #### [address] [address] Community Health Navigator: Willie Garcia MD Potassium [Moles/Vol] 5.0 mmol/L Normal 3.7-5.3 [facility] Comment on above: Performed By: #### B MP, LIVP, CBC #### [facility] [address] [place] [address] Community Health Navigator: Bin Mckeon MD #### LIPR, GLYHGB #### [address] [address] Community Health Navigator: Willie Garcia MD Protein [Mass/Vol] 6.9 g/dL Normal 6.6-8.7 [facility] Comment on above: Performed By: #### B MP, LIVP, CBC #### [facility] [address] [place] [address] Community Health Navigator: Bin Mckeon MD #### LIPR, GLYHGB #### [address] [address] Community Health Navigator: Willie Garcia MD Sodium [Moles/Vol] 142 mmol/L Normal 136-145 [facility] Comment on above: Performed By: #### B MP, LIVP, CBC #### [facility] [address] [place] [address] Community Health Navigator: Bin Mckeon MD #### LIPR, GLYHGB #### [address] [address] Community Health Navigator: Willie Garcia MD Urea nitrogen [Mass/Vol] 40 mg/dL High - [facility] Comment on above: Performed By: #### B MP, LIVP, CBC #### [facility] [place] [address] Community Health Navigator: Bin Mckeon MD #### LIPR, GLYHGB #### [address] [address] Community Health Navigator: Willie Garcia MD Iron Binding Cap.on 05-23-20 25 % Fe Saturation 19 % Low 20-55 [facility] Comment on above: Performed By: #### B MP, LIVP, CBC #### [facility] [place] [address] Community Health Navigator: Bin Mckeon MD #### LIPR, GLYHGB #### [address] [address] Community Health Navigator: Willie Garcia MD Iron [Mass/Vol] 43 ug/dL Normal 37-145 [facility] Comment on above: Performed By: #### B MP, LIVP, CBC #### [facility] [address] [place] [address] Community Health Navigator: Bin Mckeon MD #### LIPR, GLYHGB #### [address] [phone] Community Health Navigator: Willie Garcia MD Total Fe Binding Cap 226 ug/dL Low 250-450 [facility] Comment on above: Performed By: #### B MP, LIVP, CBC #### [facility] [address] [place] [address] Community Health Navigator: Bin Mckeon MD #### LIPR, GLYHGB #### [address] [address] Community Health Navigator: Willie Garcia MD Unbound Fe Bind Cap 183 ug/dL Normal 112-347 [facility] Comment on above: Performed By: #### B MP, LIVP, CBC #### [facility] [address] [place] [address] Community Health Navigator: Bin Mckeon MD #### LIPR, GLYHGB #### [address] [address] Community Health Navigator: Willie Garcia MD Lipid Prof, Fastingon 2024 Cholesterol [Mass/Vol] 120 mg/dL Normal 0-199 [facility] Comment on above: Result Comment: Cholesterol Guidelines: <200 Desirable 200-240 Borderline >240 Undesirable Performed By: #### B MP, LIVP, CBC #### [facility] [address] [place] [address] Community Health Navigator: Bin Mckeon MD #### LIPR, GLYHGB #### [address] [address] Community Health Navigator: Willie Garcia MD Cholesterol in HDL [Mass/Vol] 37 mg/dL Low >40 [facility] Comment on above: Result Comment: HDL Guidelines: <40 Undesirable 40-59 Borderline >59 Desirable Performed By: #### B MP, LIVP, CBC #### [facility] [place] [address] Community Health Navigator: Bin Mckeon MD #### LIPR, GLYHGB #### [address] [address] Community Health Navigator: Willie Garcia MD Cholesterol in LDL [Mass/Vol] 65 mg/dL Normal 0-100 [facility] Comment on above: Result Comment: LDL Guidelines: <100 Desirable 100-129 Near to/above Desirable 130-159 Borderline >159 Undesirable Direct (measured) LDL and calculated LDL are not interchangeable tests. Performed By: #### B MP, LIVP, CBC #### [facility] [address] [place] [address] Community Health Navigator: Bin Mckeon MD #### LIPR, GLYHGB #### [address] [address] Community Health Navigator: Willie Garcia MD Cholesterol in VLDL [Mass/Vol] 18 mg/dL Normal 1-30 [facility] Comment on above: Performed By: #### B MP LIVP, CBC #### [facility] [address] [place] [address] Community Health Navigator: Bin Mckeon MD #### LIPR, GLYHGB #### [address] [address] Community Health Navigator: Willie Garcia MD Cholesterol.total/Chol esterol in HDL [Mass ratio] 3.2 {ratio} Normal <5.0 [facility] Comment on above: Performed By: #### B CLIF LIVP, CBC #### [facility] [address] [place] [address] Community Health Navigator: Bin Mckeon MD #### LIPR, GLYHGB #### [address] [address] Community Health Navigator: Willie Garcia MD Triglyceride,Fasting 89 mg/dL Normal 0-149 [facility] Comment on above: Result Comment: Triglyceride Guidelines: <150 Desirable 150-199 Borderline 200-499 High >499 Very high Based on AHA Guidelines for fasting triglyceride, July 2012. Performed By: #### B CLIF LIVP, CBC #### [facility] [address] [place] [address] Community Health Navigator: Bin Mckeon MD #### LIPR, GLYHGB #### [address] [address] Community Health Navigator: Willie Garcia MD Thyroid Stim. Horm.on 2024 Thyroid Stim. Horm. 0.41 uIU/mL Normal 0.27-4.20 [facility] Comment on above: Performed By: #### B MP LIVP, CBC #### [facility] [address] [place] [address] Community Health Navigator: Bin Mckeon MD #### LIPR, GLYHGB #### [facility] [address] [place], [place] [id number] Community Health Navigator: Willie Garcia MD Thyroxine, Freeon 02-26-2025 Thyroxine, Free 1.6 ng/dL Normal 0.93-1.70 [facility] Comment on above: Performed By: #### B MP, LIVP, CBC #### [facility] [address] [place] [place], [place] [id number] Community Health Navigator: Bin Mckeon MD #### LIPR, GLYHGB #### [facility] [address] [place], [place] [id number] Community Health Navigator: Willie Garcia MD CBCon 12-16-2024 Erythrocyte distribution width (RBC) [Ratio] 14.2 % 11.8 - 14.4 % [facility] Hematocrit (Bld) [Volume fraction] 36.3 % 36.3 - 47.1 % [facility] Hemoglobin (Bld) [Mass/Vol] 11.3 g/dL Low 11.9 - 15.1 g/dL [facility] Interpretation and review of laboratory results Abnormal [facility] MCH (RBC) [Entitic mass] 27.4 pg 25.2 - 33.5 pg [facility] MCHC (RBC) [Mass/Vol] 31.1 g/dL 28.4 - 34.8 g/dL [facility] MCV (RBC) [Entitic vol] 87.9 fL 82.6 - 102.9 fL [facility] Nucleated RBC/100 WBC (Bld) [Ratio] 0 % 0.0 per 100 WBC [facility] Platelet mean volume (Bld) [Entitic vol] 10 fL 8.1 - 13.5 fL [facility] Platelets (Bld) [#/Vol] 131 10*3/uL Low [facility] RBC (Bld) [#/Vol] 4.13 10*6/uL 3.95 - 5.1 1 m/uL [facility] WBC other (Bld) [#/Vol] 4.8 [facility] Erythrocyte distribution width (RBC) [Ratio] 14.2 % Normal 11.8-14.4 [facility] Comment on above: Performed By: #### B MP, LIVP, CBC #### [facility] [address] [place] [address] Community Health Navigator: Bin Mckeon MD #### LIPR, GLYHGB #### [address] [address] Community Health Navigator: Willie Garcia MD Hematocrit (Bld) [Volume fraction] 36.3 % Normal 36.3-47.1 [facility] Comment on above: Performed By: #### B MP, LIVP, CBC #### [facility] [address] [place] [address] Community Health Navigator: Bin Mckeon MD #### LIPR, GLYHGB #### [address] [address] Community Health Navigator: Willie Garcia MD Hemoglobin (Bld) [Mass/Vol] 11.3 g/dL Low 11.9-15.1 [facility] Comment on above: Performed By: #### B MP, LIVP, CBC #### [facility] [address] [place] [address] Community Health Navigator: Bin Mckeon MD #### LIPR, GLYHGB #### [address] [address] Community Health Navigator: Willie Garcia MD MCH (RBC) [Entitic mass] 27.4 pg Normal 25.2-33.5 [facility] Comment on above: Performed By: #### B MP, LIVP, CBC #### [facility] [address] [place] [address] Community Health Navigator: Bin Mckeon MD #### LIPR, GLYHGB #### [address] [id number] Community Health Navigator: Willie Garcia MD MCHC (RBC) [Mass/Vol] 31.1 g/dL Normal 28.4-34.8 [facility] Comment on above: Performed By: #### B MP LIVP, CBC #### [facility] [place] [address] Community Health Navigator: Bin Mckeon MD #### LIPR, GLYHGB #### [address] [id number] Community Health Navigator: Willie Garcia MD MCV (RBC) [Entitic vol] 87.9 fL Normal 82.6-102.9 [facility] Comment on above: Performed By: #### B MP, LIVP, CBC #### [facility] [address] [place] [address] Community Health Navigator: Bin Mckeon MD #### KIKE, GLYHGB #### [address] [address] Community Health Navigator: Willie Garcia MD NRBC Automated 0.0 per 100 WBC Normal 0.0 [facility] Comment on above: Performed By: #### B MP, LIVP, CBC #### [facility] [address] [place] [address] Community Health Navigator: Bin Mckeon MD #### LIPR, GLYHGB #### [address] [address] Community Health Navigator: Willie Garcia MD Platelet mean volume (Bld) [Entitic vol] 10.0 fL Normal 8.1-13.5 [facility] Comment on above: Performed By: #### B MP, LIVP, CBC #### [facility] [address] [place] [address] Community Health Navigator: Bin Mckeon MD #### LIPR, GLYHGB #### [address] [address] Community Health Navigator: Willie Garcia MD Platelets (Bld) [#/Vol] 131 10*3/uL Low 138-453 [facility] Comment on above: Performed By: #### B MP, LIVP, CBC #### [facility] [address] [place] [address] Community Health Navigator: Bin Mckeon MD #### LIPR, GLYHGB #### [address] [address] Community Health Navigator: Willie Garcia MD RBC (Bld) [#/Vol] 4.13 10*6/uL Normal 3.95-5.11 [facility] Comment on above: Performed By: #### B MP, LIVP, CBC #### [facility] [address] [place] [address] Community Health Navigator: Bin Mckeon MD #### LIPR, GLYHGB #### [address] [address] Community Health Navigator: Willie Garcia MD WBC (Bld) [#/Vol] 4.8 10*3/uL Normal 3.5-11.3 [facility] Comment on above: Performed By: #### B MP, LIVP, CBC #### [facility] [address] [place] [address] Community Health Navigator: Bin Mckeon MD #### LIPR, GLYHGB #### [address] [address] Community Health Navigator: Willie Garcia MD Iron Binding Cap.on 12-17-19 25 % Fe Saturation 24 % Normal 20-55 [facility] Comment on above: Performed By: #### B MP LIVP, CBC #### [facility] [address] [place] [address] Community Health Navigator: Bin Mckeon MD #### LIPR, GLYHGB #### [address] [address] Community Health Navigator: Willie Garcia MD Iron [Mass/Vol] 56 ug/dL Normal 37-145 [facility] Comment on above: Performed By: #### B MP LIVP, CBC #### [facility] [address] [place] [address] Community Health Navigator: Bin Mckeon MD #### LIPR, GLYHGB #### [address] [address] Community Health Navigator: Willie Garcia MD Total Fe Binding Cap 229 ug/dL Low 250-450 [facility] Comment on above: Performed By: #### B MP LIVP, CBC #### [facility] [address] [place] [address] Community Health Navigator: Bin Mckeon MD #### LIPR, GLYHGB #### [address] [address] Community Health Navigator: Willie Garcia MD Unbound Fe Bind Cap 173 ug/dL Normal 112-347 [facility] Comment on above: Performed By: #### B MP, LIVP, CBC #### [facility] [address] [place] [address] Community Health Navigator: Bin Mckeon MD #### LIPR GLYHGB #### [address] [address] Community Health Navigator: Willei Garcia MD Iron and TIBCon 12-16-2024 Interpretation and review of laboratory results Abnormal [facility] Iron [Mass/Vol] 56 ug/dL 37 - 145 ug/dL [facility] Iron binding capacity [Mass/Vol] 229 ug/dL Low 250 - 450 ug/dL [facility] Iron saturation [Mass fraction] 24 % 20 - 55 % [facility] UIBC 173 ug/dL 112 - 347 ug/dL [facility] CBCon 11-18-2024 Erythrocyte distribution width (RBC) [Ratio] 14.1 % 11.8 - 14.4 % [facility] Hematocrit (Bld) [Volume fraction] 36.1 % Low 36.3 - 47.1 % [facility] Hemoglobin (Bld) [Mass/Vol] 11.2 g/dL Low 11.9 - 15.1 g/dL [facility] Interpretation and review of laboratory results Abnormal [facility] MCH (RBC) [Entitic mass] 27.5 pg 25.2 - 33.5 pg [facility] MCHC (RBC) [Mass/Vol] 31.0 g/dL 28.4 - 34.8 g/dL [facility] MCV (RBC) [Entitic vol] 88.5 fL 82.6 - 102.9 fL [facility] Nucleated RBC/100 WBC (Bld) [Ratio] 0.0 % 0.0 per 100 WBC [facility] Platelet mean volume (Bld) [Entitic vol] 9.7 fL 8.1 - 13.5 fL [facility] Platelets (Bld) [#/Vol] 167 10*3/uL [facility] RBC (Bld) [#/Vol] 4.08 10*6/uL 3.95 - 5.1 1 m/uL [facility] WBC other (Bld) [#/Vol] 5.4 [facility] Erythrocyte distribution width (RBC) [Ratio] 14.1 % Normal 11.8-14.4 [facility] Comment on above: Performed By: #### F JUVENTINO, CBC #### [facility] [address] [facility] [place] [address] Community Health Navigator: Bin Mckeon MD Hematocrit (Bld) [Volume fraction] 36.1 % Low 36.3-47.1 [facility] Comment on above: Performed By: #### F JUVENTINO, CBC #### [facility] [address] [place] [address]. [place] [address] Community Health Navigator: Bin Mckeon MD Hemoglobin (Bld) [Mass/Vol] 11.2 g/dL Low 11.9-15.1 [facility] Comment on above: Performed By: #### F JUVENTINO, CBC #### [facility] [address] [place] [address]. [place] [address] Community Health Navigator: Bin Mckeon MD MCH (RBC) [Entitic mass] 27.5 pg Normal 25.2-33.5 [facility] Comment on above: Performed By: #### F JUVENTINO CBC #### [facility] [address] [place] [address]. [place] [address] Community Health Navigator: Bin Mckeon MD MCHC (RBC) [Mass/Vol] 31.0 g/dL Normal 28.4-34.8 [facility] Comment on above: Performed By: #### F JUVENTINO, CBC #### [facility] [facility] [place] [address] Community Health Navigator: Bin Mckeon MD MCV (RBC) [Entitic vol] 88.5 fL Normal 82.6-102.9 [facility] Comment on above: Performed By: #### F JUVENTINO, CBC #### [facility] [address] [place] [address]. [place] [address] Community Health Navigator: Bin Mckeon MD NRBC Automated 0.0 per 100 WBC Normal 0.0 [facility] Comment on above: Performed By: #### F JUVENTINO, CBC #### [facility] [address] [facility] [place] [address] Community Health Navigator: Bin Mckeon MD Platelet mean volume (Bld) [Entitic vol] 9.7 fL Normal 8.1-13.5 [facility] Comment on above: Performed By: #### F JUVENTINO, CBC #### [facility] [address] [facility] [place] [address] Community Health Navigator: Bin Mckeon MD Platelets (Bld) [#/Vol] 167 10*3/uL Normal 138-453 [facility] Comment on above: Performed By: #### F JUVENTINO, CBC #### [facility] [address] [place] [address]. [place] [address] Community Health Navigator: Bin Mckeon MD RBC (Bld) [#/Vol] 4.08 10*6/uL Normal 3.95-5.11 [facility] Comment on above: Performed By: #### F JUVENTINO, CBC #### [facility] [address] [facility] [place] [address] Community Health Navigator: Bin Mckeon MD WBC (Bld) [#/Vol] 5.4 10*3/uL Normal 3.5-11.3 [facility] Comment on above: Performed By: #### F JUVENTINO, CBC #### [facility] [place] [address] Community Health Navigator: Bin Mckeon MD Ferritinon 11-18-2024 Ferritin [Mass/Vol] 224 ng/mL [facility] Comment on above: FERRITIN Reference Ranges: Adult Males 20 - 60 years: 30 - 400 ng/mL Adult females 17 - 60 years: 13 - 150 ng/mL Adults greater than 60 years: no established reference range Pediatrics: no established reference range [facility] Ferritin [Mass/Vol] 224 ng/mL Normal [facility] Comment on above: Result Comment: FERRITIN Reference Ranges: Adult Males 20 - 60 years: 30 - 400 ng/mL Adult females 17 - 60 years: 13 - 150 ng/mL Adults greater than 60 years: no established reference range Pediatrics: no established reference range Performed By: #### F JUVENTINO, CBC #### [facility] [address] [place] [address] Community Health Navigator: Bin Mckeon MD Basic Metabolic Panelon 10-07 Anion gap [Moles/Vol] 11 mmol/L 9 - 16 mmol/L [facility] Calcium [Mass/Vol] 9.5 mg/dL 8.8 - 10. 2 mg/dL [facility] Chloride [Moles/Vol] 109 mmol/L High 98 - 10 7 mmol/L [facility] CO2 [Moles/Vol] 20 mmol/L 20 - 31 mmol/L [facility] Creatinine [Mass/Vol] 1.4 mg/dL High 0.50 - 0.90 mg/dL [facility] Epidemic Sound Est, Glom Filt Rate 38 Low - PINF [facility] Comment on above: These results are not intended for use in patients <18 years of age. eGFR results are calculated without a race factor using the 2020 CKD-EPI equation. Careful clinical correlation is recommended, particularly when comparing to results calculated using previous equations. The CKD-EPI equation is less accurate in patients with extremes of muscle mass, extra-renal metabolism of creatine, excessive creatine ingestion, or following therapy that affects renal tubular secretion. Glucose [Mass/Vol] 102 mg/dL 82 - 115 mg/dL [facility] Potassium [Moles/Vol] 4.7 mmol/L 3.7 - 5.3 mmol/L [facility] Comment on above: Specimen hemolysis h as exceeded the interference as defined by Eldon. Value may be falsely increased. Suggest recollection if clinically indicated. Sodium [Moles/Vol] 140 mmol/L 136 - 145 mmol/L [facility] Urea nitrogen [Mass/Vol] 35 mg/dL High 8 - 23 mg/dL [facility] Basic Metabolic Profon 10-21 Anion gap [Moles/Vol] 11 mmol/L Normal 9-16 [facility] Comment on above: Performed By: #### B MP, LIVP, CBC #### [facility] [address] [place] [address] Community Health Navigator: Bin Mckeon MD #### LIPR, GLYHGB #### [address] [address] Community Health Navigator: Willie Garcia MD Calcium [Mass/Vol] 9.5 mg/dL Normal 8.8-10.2 [facility] Comment on above: Performed By: #### B MP, LIVP, CBC #### [facility] [place] [address] Community Health Navigator: Bin Mckeon MD #### LIPR, GLYHGB #### [address] [address] Community Health Navigator: Willie Garcia MD Chloride [Moles/Vol] 109 mmol/L High 98-107 [facility] Comment on above: Performed By: #### B MP, LIVP, CBC #### [facility] [address] [place] [address] Community Health Navigator: Bin Mckeon MD #### LIPR, GLYHGB #### [address] [address] Community Health Navigator: Willie Garcia MD CO2 [Moles/Vol] 20 mmol/L Normal 20-31 [facility] Comment on above: Performed By: #### B MP, LIVP, CBC #### [facility] [place] [address] Community Health Navigator: Bin Mckeon MD #### LIPR, GLYHGB #### [address] [place], [place] [id number] Community Health Navigator: Willie Garcia MD Creatinine [Mass/Vol] 1.4 mg/dL High 0.50-0.90 [facility] Comment on above: Performed By: #### B MP, LIVP, CBC #### [facility] [address] [place] [address] Community Health Navigator: Bin Mckeon MD #### LIPR, GLYHGB #### [address] [phone] Community Health Navigator: Willie Garcia MD GFR/1.73 sq M.predicted among non-blacks MDRD (S/P/Bld) [Vol rate/Area] 38 mL/min/{1.73_m2} Low >60 [facility] Comment on above: Result Comment: These results are not intended for use in patients <18 years of age. eGFR results are calculated without a race factor using the 2020 CKD-EPI equation. Careful clinical correlation is recommended, particularly when comparing to results calculated using previous equations. The CKD-EPI equation is less accurate in patients with extremes of muscle mass, extra-renal metabolism of creatine, excessive creatine ingestion, or following therapy that affects renal tubular secretion. Performed By: #### B MP, LIVP, CBC #### [facility] [address] [place] [address] Community Health Navigator: Bin Mckeon MD #### LIPR, GLYHGB #### [address] [phone] Community Health Navigator: Willie Garcia MD Glucose [Mass/Vol] 102 mg/dL Normal 82-115 [facility] Comment on above: Performed By: #### B MP, LIVP, CBC #### [facility] [place] [address] Community Health Navigator: Bin Mckeon MD #### LIPR, GLYHGB #### [address] [address] Community Health Navigator: Willie Garcia MD Potassium [Moles/Vol] 4.7 mmol/L Normal 3.7-5.3 [facility] Comment on above: Result Comment: Spec imen hemolysis has exceeded the interference as defined by Eldon. Value may be falsely increased. Suggest recollection if clinically indicated. Performed By: #### B MP, LIVP, CBC #### [facility] [address] [place] [address] Community Health Navigator: Bin Mckeon MD #### LIPR, GLYHGB #### [address] [address] Community Health Navigator: Willie Garcia MD Sodium [Moles/Vol] 140 mmol/L Normal 136-145 [facility] Comment on above: Performed By: #### B MP, LIVP, CBC #### [facility] [address] [place] [address] Community Health Navigator: Bin Mckeon MD #### LIPR, GLYHGB #### [address] [address] Community Health Navigator: Willie Garcia MD Urea nitrogen [Mass/Vol] 35 mg/dL High 8-23 [facility] Comment on above: Performed By: #### B MP, LIVP, CBC #### [facility] [address] [place] [address] Community Health Navigator: Bin Mckeon MD #### LIPR, GLYHGB #### [address] [address] Community Health Navigator: Willie Garcia MD [facility] 10-21-2024 Erythrocyte distribution width (RBC) [Ratio] 13.5 % 11.8 - 14.4 % [facility] Hematocrit (Bld) [Volume fraction] 37.4 % 36.3 - 47.1 % [facility] Hemoglobin (Bld) [Mass/Vol] 11.1 g/dL Low 11.9 - 15.1 g/dL [facility] Interpretation and review of laboratory results Abnormal [facility] MCH (RBC) [Entitic mass] 27.8 pg 25.2 - 33.5 pg [facility] MCHC (RBC) [Mass/Vol] 29.7 g/dL 28.4 - 34.8 g/dL [facility] MCV (RBC) [Entitic vol] 93.7 fL 82.6 - 102.9 fL [facility] Nucleated RBC/100 WBC (Bld) [Ratio] 0.0 % 0.0 per 100 WBC [facility] Platelet mean volume (Bld) [Entitic vol] 9.9 fL 8.1 - 13.5 fL [facility] Platelets (Bld) [#/Vol] 152 10*3/uL [facility] RBC (Bld) [#/Vol] 3.99 10*6/uL 3.95 - 5.1 1 m/uL [facility] WBC other (Bld) [#/Vol] 6.6 [facility] Erythrocyte distribution width (RBC) [Ratio] 13.5 % Normal 11.8-14.4 [facility] Comment on above: Performed By: #### B MP, LIVP, CBC #### [facility] [address] [place] [address] Community Health Navigator: Bin Mckeon MD #### KIKE, GLYHGB #### [facility] [address] [place] [address] Community Health Navigator: Willie Garcia MD Hematocrit (Bld) [Volume fraction] 37.4 % Normal 36.3-47.1 [facility] Comment on above: Performed By: #### B MP, LIVP, CBC #### [facility] [address] [place] [address] Community Health Navigator: Bin Mckeon MD #### LIPR, GLYHGB #### [address] [address] Community Health Navigator: Willie Garcia MD Hemoglobin (Bld) [Mass/Vol] 11.1 g/dL Low 11.9-15.1 [facility] Comment on above: Performed By: #### B MP, LIVP, CBC #### [facility] [address] [place] [address] Community Health Navigator: Bin Mckeon MD #### LIPR, GLYHGB #### [address] [address] Community Health Navigator: Willie Garcia MD MCH (RBC) [Entitic mass] 27.8 pg Normal 25.2-33.5 [facility] Comment on above: Performed By: #### B MP, LIVP, CBC #### [facility] [address] [place] [address] Community Health Navigator: Bin Mckeon MD #### LIPR, GLYHGB #### [address] [address] Community Health Navigator: Willie Garcia MD MCHC (RBC) [Mass/Vol] 29.7 g/dL Normal 28.4-34.8 [facility] Comment on above: Performed By: #### B MP, LIVP, CBC #### [facility] [address] [place] [address] Community Health Navigator: Bin Mckeon MD #### LIPR, GLYHGB #### [address] [address] Community Health Navigator: Willie Garcia MD MCV (RBC) [Entitic vol] 93.7 fL Normal 82.6-102.9 [facility] Comment on above: Performed By: #### B MP, LIVP, CBC #### [facility] [address] [place] [address] Community Health Navigator: Bin Mckeon MD #### LIPR, GLYHGB #### [address] [address] Community Health Navigator: Willie Garcia MD NRBC Automated 0.0 per 100 WBC Normal 0.0 [facility] Comment on above: Performed By: #### B MP LIVP, CBC #### [facility] [address] [place] [address] Community Health Navigator: Bin Mckeon MD #### LIPR, GLYHGB #### [address] [address] Community Health Navigator: Willie Garcia MD Platelet mean volume (Bld) [Entitic vol] 9.9 fL Normal 8.1-13.5 [facility] Comment on above: Performed By: #### B MP, LIVP, CBC #### [facility] [address] [place] [address] Community Health Navigator: Bin Mckeon MD #### LIPR, GLYHGB #### [address] [address] Community Health Navigator: Willie Garcia MD Platelets (Bld) [#/Vol] 152 10*3/uL Normal 138-453 [facility] Comment on above: Performed By: #### B MP, LIVP, CBC #### [facility] [address] [place] [address] Community Health Navigator: Bin Mckeon MD #### LIPR, GLYHGB #### [address] [address] [place] [address] Community Health Navigator: Willie Garcia MD RBC (Bld) [#/Vol] 3.99 10*6/uL Normal 3.95-5.11 [facility] Comment on above: Performed By: #### B MP, LIVP, CBC #### [facility] [address] [place] [address] Community Health Navigator: Bin Mckeon MD #### LIPR, GLYHGB #### [facility] [address] [place] [address] Community Health Navigator: Willie Garcia MD WBC (Bld) [#/Vol] 6.6 10*3/uL Normal 3.5-11.3 [facility] Comment on above: Performed By: #### B MP, LIVP, CBC #### [facility] [address] [place] [address] Community Health Navigator: Bin Mkceon MD #### LIPR, GLYHGB #### [address] [address] Community Health Navigator: Willie Garcia MD Hemoglobin A1Con 10-21-2024 Average glucose Estimated from glycated hemoglobin (Bld) [Mass/Vol] 105 mg/dL [facility] Comment on above: The ADA and AACC rec ommend providing the estimated average glucose result to permit better patient understanding of their HBA1c result. HbA1c (Bld) [Mass fraction] 5.3 % 4.0 - 6.0 % [facility] Glucose [Mass/Vol] 105 mg/dL Normal [facility] Comment on above: Result Comment: The ADA and AACC recommend providing the estimated average glucose result to permit better patient understanding of their HBA1c result. Performed By: #### B MP, LIVP, CBC #### [facility] [address] [place] [address] Community Health Navigator: Bin Mckeon MD #### LIPR, GLYHGB #### [facility] [address] [place], [place] [id number] Community Health Navigator: Willie Garcia MD HbA1c (Bld) [Mass fraction] 5.3 % Normal 4.0-6.0 [facility] Comment on above: Performed By: #### B MP, LIVP, CBC #### [facility] [address] [place] [address] Community Health Navigator: Bin Mckeon MD #### LIPZander, GLYHGB #### [facility] [employer] [address] [place] [address] Community Health Navigator: Willie Garcia MD Hepatic Function Panelon Albumin [Mass/Vol] 3.8 g/dL 3.5 - 5.2 g/dL [facility] Albumin/Globulin [Mass ratio] 1.1 {ratio} 1.0 - 2.5 [facility] ALP [Catalytic activity/Vol] 68 U/L 35 - 104 U/L [facility] ALT [Catalytic activity/Vol] 5 U/L Low 10 - 35 U/L [facility] AST [Catalytic activity/Vol] 23 U/L 10 - 35 U/L [facility] Comment on above: Specimen hemolysis h as exceeded the interference as defined by [facility]on. Value may be falsely increased. Suggest recollection if clinically indicated. Bilirubin [Mass/Vol] 0.5 mg/dL 0.00 - 1.20 mg/dL [facility] Bilirubin.direct [Mass/Vol] 0.2 mg/dL 0.00 - 0.20 mg/dL [facility] Comment on above: Specimen hemolysis h as exceeded the interference as defined by [facility]on. Value may be falsely increased. Suggest recollection if clinically indicated. Bilirubin.indirect [Mass/Vol] 0.3 mg/dL [facility] Protein [Mass/Vol] 7.3 g/dL 6.6 - 8.7 g/dL [facility] Lipid Panelon 10-21-2024 Cholesterol [Mass/Vol] 130 mg/dL 0 - 1 99 mg/dL [facility] Comment on above: Cholesterol Guidelines: <200 Desirable 200-240 Borderline >240 Undesirable Cholesterol in HDL [Mass/Vol] 41 mg/dL 40 - PINF mg/dL [facility] Comment on above: HDL Guidelines: <40 Undesirable 40-59 Borderline >59 Desirable Cholesterol in LDL [Mass/Vol] 72 mg/dL 0 - 100 mg/dL [facility] Comment on above: LDL Guidelines: <100 Desirable 100-129 Near to/above Desirable 130-159 Borderline >159 Undesirable Direct (measured) LDL and calculated LDL are not interchangeable tests. Cholesterol in VLDL [Mass/Vol] 17 mg/dL 1 - 30 mg/dL [facility] Cholesterol.total/Chol esterol in HDL [Mass ratio] 3.2 {ratio} [facility] Triglyceride [Mass/Vol] 87 mg/dL NINF - 150 mg/dL [facility] Comment on above: Triglyceride Guidelines: <150 Desirable 150-199 Borderline 200-499 High >499 Very high Based on AHA Guidelines for fasting triglyceride, July 2012. [facility] Lipid Profileon 10-21-2024 Cholesterol [Mass/Vol] 130 mg/dL Normal 0-199 [facility] Comment on above: Result Comment: Cholesterol Guidelines: <200 Desirable 200-240 Borderline >240 Undesirable Performed By: #### B MP, LIVP, CBC #### [facility] [address] [place] [address] Community Health Navigator: Bin Mckeon MD #### LIPR, GLYHGB #### [facility] [employer] [address] [place], [place] [id number] Community Health Navigator: Willie Garcia MD Cholesterol in HDL [Mass/Vol] 41 mg/dL Normal >40 [facility] Comment on above: Result Comment: HDL Guidelines: <40 Undesirable 40-59 Borderline >59 Desirable Performed By: #### B MP, LIVP, CBC #### [facility] [address] [place] [address] Community Health Navigator: Bin Mckeon MD #### LIPR, GLYHGB #### [facility] [employer] [address] [place] [address] Community Health Navigator: Willie Garcia MD Cholesterol in LDL [Mass/Vol] 72 mg/dL Normal 0-100 [facility] Comment on above: Result Comment: LDL Guidelines: <100 Desirable 100-129 Near to/above Desirable 130-159 Borderline >159 Undesirable Direct (measured) LDL and calculated LDL are not interchangeable tests. Performed By: #### B MP, LIVP, CBC #### [facility] [address] [place] [address] Community Health Navigator: Bin Mckeon MD #### LIPR, GLYHGB #### [address] [address] Community Health Navigator: Willie Garcia MD Cholesterol in VLDL [Mass/Vol] 17 mg/dL Normal 1-30 [facility] Comment on above: Performed By: #### B MP, LIVP, CBC #### [facility] [address] [place] [address] Community Health Navigator: Bin Mckeon MD #### LIPR, GLYHGB #### [address] [address] Community Health Navigator: Willie Garcia MD Cholesterol.total/Chol esterol in HDL [Mass ratio] 3.2 {ratio} Normal [facility] Comment on above: Performed By: #### B MP, LIVP, CBC #### [facility] [address] [place] [address] Community Health Navigator: Bin Mckeon MD #### LIPR, GLYHGB #### [address] [address] Community Health Navigator: Willie Garcia MD Triglyceride [Mass/Vol] 87 mg/dL Normal <150 [facility] Comment on above: Result Comment: Triglyceride Guidelines: <150 Desirable 150-199 Borderline 200-499 High >499 Very high Based on AHA Guidelines for fasting triglyceride, July 2012. Performed By: #### B MP, LIVP, CBC #### [facility] [address] [place] [address] Community Health Navigator: Bin Mckeon MD #### LIPR, GLYHGB #### [address] [address] Community Health Navigator: Willie Garcia MD Liver Profileon 10-21-2024 Albumin [Mass/Vol] 3.8 g/dL Normal 3.5-5.2 [facility] Comment on above: Performed By: #### B MP, LIVP, CBC #### [facility] [address] [place] [address] Community Health Navigator: Bin Mckeon MD #### LIPR, GLYHGB #### [address] [address] Community Health Navigator: Willie Garcia MD Albumin/Glob Ratio 1.1 Normal 1.0-2.5 [facility] Comment on above: Performed By: #### B MP, LIVP, CBC #### [facility] [place] [address] Community Health Navigator: Bin Mckeon MD #### LIPR, GLYHGB #### [address] [address] Community Health Navigator: Willie Garcia MD Alkaline Phos 68 U/L Normal 35-104 [facility] Comment on above: Performed By: #### B MP, LIVP, CBC #### [facility] [place] [address] Community Health Navigator: Bin Mckeon MD #### LIPR, GLYHGB #### [address] [address] Community Health Navigator: Willie Garcia MD ALT [Catalytic activity/Vol] 5 U/L Low [address] [place] [address] Comment on above: Performed By: #### B MP, LIVP, CBC #### [facility] [address] [place] [address] Community Health Navigator: Bin Mckeon MD #### LIPR, GLYHGB #### [address] [address] Community Health Navigator: Willie Garcia MD AST [Catalytic activity/Vol] 23 U/L Normal [address] [place] [address] Comment on above: Result Comment: Spec imen hemolysis has exceeded the interference as defined by [facility]. Value may be falsely increased. Suggest recollection if clinically indicated. Performed By: #### B MP, LIVP, CBC #### [facility] [address] [place] [address] Community Health Navigator: Bin Mckeon MD #### LIPR, GLYHGB #### [address] [address] Community Health Navigator: Willie Garcia MD Bilirubin [Mass/Vol] 0.5 mg/dL Normal 0.00-1.20 [facility] Comment on above: Performed By: #### B MP, LIVP, CBC #### [facility] [address] [place] [address] Community Health Navigator: Bin Mckeon MD #### LIPR, GLYHGB #### [address] [address] Community Health Navigator: Willie Garcia MD Bilirubin, Indirect 0.3 mg/dL Normal [facility] Comment on above: Performed By: #### B MP, LIVP, CBC #### [facility] [address] [place] [address] Community Health Navigator: Bin Mckeon MD #### LIPR, GLYHGB #### [address] [address] Community Health Navigator: Willie Garcia MD Bilirubin.indirect [Mass/Vol] 0.2 mg/dL Normal 0.00-0.20 [facility] Comment on above: Result Comment: Spec imen hemolysis has exceeded the interference as defined by [facility]. Value may be falsely increased. Suggest recollection if clinically indicated. Performed By: #### B MP, LIVP, CBC #### [facility] [address] [place] [address] Community Health Navigator: Bin Mckeon MD #### KIKE GLYHGB #### [facility] [employer] [address] [place] [id number] Community Health Navigator: Willie Garcia MD Protein [Mass/Vol] 7.3 g/dL Normal 6.6-8.7 [facility] Comment on above: Performed By: #### B MP, LIVP, CBC #### [facility] [address] [place] [address] Community Health Navigator: Bin Mckeon MD #### KIKE, GLYHGB #### [facility] [employer] [address] [place] [address] Community Health Navigator: Willie Garcia MD No Panel Informationon 10-21 Interpretation and review of laboratory results Abnormal [facility] 30on 10-18-2024 30 Daily Case Managemen t Update Multidisciplinary rounds have been completed. Barriers to Discharge: Patient is medically ready for hospital discharge at this time. AVS has been completed, and primary RN has been notified of patients discharge readiness. Patient will return to [facility], with ambulatory referral to [facility]. OTM SW to arrange transportation. No further OTM needs identified at this time. [facility] and [facility] with any further discharge related needs. Diet: Dietary Orders (From admission, onward) Start Ordered 10/18/24 1331 Regular Diet Diet effective now Question: Room Service? Answer: Yes 10/18/24 1330 Physician Expected Discharge Date: 10/18/2024 Discharge Delays: PT Six Click Score: 12 OT Six Click Score: PT Recommendations: OT Recommendations: Does patient understand post acute plan of care? Yes Is expected discharge disposition appropriate for patient?: Yes New Consults: Consult Orders (From admission, onward) Start Ordered 10/18/24 1119 Inpatient consult to Pallative Care Once Provider: (Not yet assigned) Question Answer Comment [employer] PALLIATIVE MEDICINE TEAM Reason for Consult? POA requesting hospice care/consult. fall, new head bleed, no invasive intervention wanted. POA would like patient to return to dementia facility Level of Consultation Consultation and Management Did you contact the performance improvement consultant? Yes 10/18/24 1124 10/18/24 0301 Inpatient Consult to SICU Once Provider: (Not yet assigned) Question Answer Comment [employer] SICU TEAM Reason for Consult? Critical care management Level of Consultation Consultation and Management Did you contact the performance improvement consultant? Yes 10/18/24 0302 10/18/24 0209 Inpatient consult to Trauma Surgery Once Specialty: Trauma Surgery Provider: (Not yet assigned) Question Answer Comment [employer] [facility] TRAUMA SURGERY TEAM Reason for Consult? frontal lobe hemorrhagic contusion Level of Consultation Consultation and Management Did you contact the performance improvement consultant? Yes 10/18/24 0209 Ancillary Consults (From admission, onward) Start Ordered 10/18/24 0246 Inpatient consult to Social Work - Placement Once Provider: (Not yet assigned) Question Answer Comment Is discharge planning needed? If yes, who is requesting discharge planning? Provider Reason for Consult? Placement 10/18/[address] [facility] APTTon 10-18-2024 ACTIVATED PARTIAL THROMBOPLASTIN TIME IN PPP BY COAGULATION ASSAY 30.5 Seconds Normal 25.0-35.[address] [facility] Comment on above: Result Comment: Clin ical significance of the APTT is questionable in the presence of heparin. Performed By: #### L [id number] #### [facility] ([facility]) [address] [place] [address] BASIC METABOLIC PANELon 10-07 Anion gap [Moles/Vol] 10 mmol/L Normal 7-20 [facility] Comment on above: Performed By: #### L [id number] #### [facility] ([facility]) [address] [place] [address] Calcium [Mass/Vol] 9.4 mg/dL Normal 8.6-10.3 [facility] Comment on above: Performed By: #### L [id number] #### [facility] ([facility]) [address] [place] [address] Chloride [Moles/Vol] 113 mmol/L High 98-107 [facility] Comment on above: Performed By: #### L [id number] #### [facility] ([facility]) [address] [place] [address] CO2 [Moles/Vol] 24 mmol/L Normal 21-31 [facility] Comment on above: Performed By: #### L [id number] #### [facility] ([facility]) [address] [place] [address] Creatinine [Mass/Vol] 1.45 mg/dL High 0.60-1.20 [facility] Comment on above: Performed By: #### L [id number] #### [facility] ([facility]) [address] [place] [address] GLOMERULAR FILTRATION RATE ML/MIN/1.73 SQ M.PREDICTED 35.6 mL/min/1.73m*2 Low >60.[address] [facility] Comment on above: Result Comment: The [facility]???s estimated glomerular filtration rate (eGFR) will no longer include consideration of race in its calculation. The National Kidney Foundation???s eGFR Task Force developed new recommendations for the estimation of the glomerular filtration rate in the [place] They recommend immediate implementation of the new equation refit without the race variable in all laboratories because the calculation does not include race. In addition to not including race in the calculation and reporting, it included diversity in its development, and has acceptable performance characteristics and potential consequences that do not disproportionately affect any one group of individuals. Performed By: #### L [id number] #### [facility] ([facility]) [address] [place] [address] Glucose [Mass/Vol] 91 mg/dL Normal 70-100 [facility] Comment on above: Performed By: #### L [id number] #### [facility] ([facility]) [address] [place] [address] Potassium [Moles/Vol] 4.2 mmol/L Normal 3.5-5.1 [facility] Comment on above: Performed By: #### L [id number] #### [facility] ([facility]) [address] [place] [address] Sodium [Moles/Vol] 143 mmol/L Normal 136-145 [facility] Comment on above: Performed By: #### L [id number] #### [facility] ([facility]) [address] [place] [address] Urea nitrogen [Mass/Vol] 35 mg/dL High 7-[address] [facility] Comment on above: Performed By: #### L [id number] #### [facility] ([facility]) [address] [place] [address] UREA NITROGEN/CREATININE (MASS RATIO) IN SER/PLAS 24.[address] [facility] Comment on above: Performed By: #### L [id number] #### [facility] ([facility]) [address] [place] [address] CBCon 10-18-2024 Erythrocyte distribution width (RBC) [Ratio] 13.4 % Normal 11.5-15.[address] [facility] Comment on above: Performed By: #### L [id number] #### [facility] ([facility]) [address] [place] [address] ERYTHROCYTE MEAN CORPUSCULAR HEMOGLOBIN CONCENTRATION (G/DL) BY AUTOMATED 31.0 g/dL Low 32.0-35.[address] [facility] Comment on above: Performed By: #### L [id number] #### [facility] ([facility]) [address] [place] [address] Hematocrit (Bld) [Volume fraction] 32.3 % Low 36.0-48.[address] [facility] Comment on above: Performed By: #### L [id number] #### [facility] ([facility]) [address] [place] [address] Hemoglobin (Bld) [Mass/Vol] 10.0 g/dL Low 12.0-15.[address] [facility] Comment on above: Performed By: #### L [id number] #### [facility] ([facility]) [address] [place] [address] MCH (RBC) [Entitic mass] 27.5 pg Normal 27.0-33.[address] [facility] Comment on above: Performed By: #### L [id number] #### [facility] ([facility]) [address] [place] [address] MCV (RBC) [Entitic vol] 88.7 fL Normal 82.0-98.[address] [facility] Comment on above: Performed By: #### L [id number] #### [facility] ([facility]) [address] [place] [address] PLATELETS (10*3/UL) IN BLOOD AUTOMATED COUNT 145 10*3/uL Low 150-[address] [facility] Comment on above: Performed By: #### L [id number] #### [facility] ([facility]) [address] [place] [address] RBC (Bld) [#/Vol] 3.64 10*6/uL Low 3.80-5.00 [facility] Comment on above: Performed By: #### L [id number] #### [facility] ([facility]) [address] [place] [address] WBC (Bld) [#/Vol] 6.97 10*3/uL Normal 4.00-10.60 [facility] Comment on above: Performed By: #### L [id number] #### [facility] ([facility]) [address] [place] [address] CBC WITH AUTO DIFFERENTIALon 10-18-2024 Basophils (Bld) [#/Vol] 0.03 10*3/uL Normal 0.00-0.[address] [facility] Comment on above: Performed By: #### L [id number] #### [facility] ([facility]) [address] [place] [address] Basophils/100 WBC (Bld) 0.4 % Normal 0.0-1.[address] [facility] Comment on above: Performed By: #### L [id number] #### [facility] ([facility]) [address] [place] [address] Eosinophils (Bld) [#/Vol] 0.10 10*3/uL Normal 0.00-0.[address] [facility] Comment on above: Performed By: #### L [id number] #### [facility] ([facility]) [address] [place] [address] Eosinophils/100 WBC (Bld) 1.3 % Normal 0.0-6.[address] [facility] Comment on above: Performed By: #### L [id number] #### [facility] ([facility]) [address] [place] [address] Erythrocyte distribution width (RBC) [Ratio] 13.6 % Normal 11.5-15.[address] [facility] Comment on above: Performed By: #### L [id number] #### [facility] ([facility]) [address] [place] [address] ERYTHROCYTE MEAN CORPUSCULAR HEMOGLOBIN CONCENTRATION (G/DL) BY AUTOMATED 30.7 g/dL Low 32.0-35.[address] [facility] Comment on above: Performed By: #### L [id number] #### [facility] ([facility]) [address] [place] [address] Hematocrit (Bld) [Volume fraction] 35.2 % Low 36.0-48.[address] [facility] Comment on above: Performed By: #### L [id number] #### [facility] ([facility]) [address] [place] [address] Hemoglobin (Bld) [Mass/Vol] 10.8 g/dL Low 12.0-15.[address] [facility] Comment on above: Performed By: #### L [id number] #### [facility] ([facility]) [address] [place] [address] Immature granulocytes (Bld) [#/Vol] 0.02 10*3/uL Normal 0.00-0.[address] [facility] Comment on above: Performed By: #### L [id number] #### [facility] ([facility]) [address] [place] [address] Immature granulocytes/100 WBC (Bld) 0.3 % Normal 0.0-1.[address] [facility] Comment on above: Performed By: #### L [id number] #### [facility] ([facility]) [address] [place] [address] Lymphocytes (Bld) [#/Vol] 1.90 10*3/uL Normal 1.20-4.[address] [facility] Comment on above: Performed By: #### L [id number] #### [facility] ([facility]) [address] [place] [address] Lymphocytes/100 WBC (Bld) 23.9 % Normal 20.0-45.[address] [facility] Comment on above: Performed By: #### L [id number] #### [facility] ([facility]) [address] [place] [address] MCH (RBC) [Entitic mass] 27.3 pg Normal 27.0-33.[address] [facility] Comment on above: Performed By: #### L [id number] #### [facility] ([facility]) [address] [place] [address] MCV (RBC) [Entitic vol] 89.1 fL Normal 82.0-98.[address] [facility] Comment on above: Performed By: #### L [id number] #### [facility] ([facility]) [address] [place] [address] Monocytes (Bld) [#/Vol] 0.66 10*3/uL Normal 0.10-1.[address] [facility] Comment on above: Performed By: #### L [id number] #### [facility] ([facility]) [address] [place] [address] Monocytes/100 WBC (Bld) 8.3 % Normal 5.0-12.[address] [facility] Comment on above: Performed By: #### L [id number] #### [facility] ([facility]) [address] [place] [address] Neutrophils (Bld) [#/Vol] 5.25 10*3/uL Normal 1.60-7.[address] [facility] Comment on above: Performed By: #### L [id number] #### [facility] ([facility]) [address] [place] [address] Neutrophils/100 WBC (Bld) 65.8 % Normal 40.0-72.[address] [facility] Comment on above: Performed By: #### L [id number] #### [facility] ([facility]) [address] [place] [address] NRBC (PER 100 WBCS) BY AUTOMATED COUNT 0.0 % Normal [address] [facility] Comment on above: Performed By: #### L [id number] #### [facility] ([facility]) [address] [place] [address] PLATELETS (10*3/UL) IN BLOOD AUTOMATED COUNT 172 10*3/uL Normal 150-[address] [facility] Comment on above: Performed By: #### L [id number] #### [facility] ([facility]) [address] [place] [address] RBC (Bld) [#/Vol] 3.95 10*6/uL Normal 3.80-5.00 [facility] Comment on above: Performed By: #### L [id number] #### [facility] ([facility]) [address] [place] [address] WBC (Bld) [#/Vol] 7.96 10*3/uL Normal 4.00-10.60 [facility] Comment on above: Performed By: #### L [id number] #### [facility] ([facility]) [address] [place] [address] COMPREHENSIVE METABOLIC PANE Flo 10-18-2024 Albumin [Mass/Vol] 4.4 g/dL Normal 3.5-5.7 [facility] Comment on above: Performed By: #### L [id number] #### [facility] ([facility]) [address] [place] [address] ALP [Catalytic activity/Vol] 67 U/L Normal 34-[address] [facility] Comment on above: Performed By: #### L [id number] #### [facility] ([facility]) [address] [place] [address] ALT [Catalytic activity/Vol] 6 U/L Low 7-[address] [facility] Comment on above: Performed By: #### L [id number] #### [facility] ([facility]) [address] [place] [address] Anion gap [Moles/Vol] 9 mmol/L Normal 7-20 [facility] Comment on above: Performed By: #### L [id number] #### [facility] ([facility]) [address] [place] [address] AST [Catalytic activity/Vol] 16 U/L Normal 13-[address] [facility] Comment on above: Performed By: #### L [id number] #### [facility] ([facility]) [address] [place] [address] Bilirubin [Mass/Vol] 0.5 mg/dL Normal 0.3-1.0 [facility] Comment on above: Performed By: #### L [id number] #### [facility] ([facility]) [address] [place] [address] Calcium [Mass/Vol] 9.6 mg/dL Normal 8.6-10.3 [facility] Comment on above: Performed By: #### L [id number] #### [facility] ([facility]) [address] [place] [address] Chloride [Moles/Vol] 112 mmol/L High 98-107 [facility] Comment on above: Performed By: #### L [id number] #### [facility] ([facility]) [address] [place] [address] CO2 [Moles/Vol] 24 mmol/L Normal 21-31 [facility] Comment on above: Performed By: #### L [id number] #### [facility] ([facility]) [address] [place] [address] Creatinine [Mass/Vol] 1.59 mg/dL High 0.60-1.20 [facility] Comment on above: Performed By: #### L [id number] #### [facility] ([facility]) [address] [place] [address] GLOMERULAR FILTRATION RATE ML/MIN/1.73 SQ M.PREDICTED 31.8 mL/min/1.73m*2 Low >60.[address] [facility] Comment on above: Result Comment: The [facility]???s estimated glomerular filtration rate (eGFR) will no longer include consideration of race in its calculation. The National Kidney Foundation???s eGFR Task Force developed new recommendations for the estimation of the glomerular filtration rate in the [place] They recommend immediate implementation of the new equation refit without the race variable in all laboratories because the calculation does not include race. In addition to not including race in the calculation and reporting, it included diversity in its development, and has acceptable performance characteristics and potential consequences that do not disproportionately affect any one group of individuals. Performed By: #### L [id number] #### [facility] ([facility]) [address] [place] [address] Glucose [Mass/Vol] 108 mg/dL High 70-100 [facility] Comment on above: Performed By: #### L [id number] #### [facility] ([facility]) [address] [place] [address] Potassium [Moles/Vol] 4.4 mmol/L Normal 3.5-5.1 [facility] Comment on above: Performed By: #### L [id number] #### [facility] ([facility]) [address] [place] [address] Protein [Mass/Vol] 7.6 g/dL Normal 6.0-8.3 [facility] Comment on above: Performed By: #### L [id number] #### [facility] ([facility]) [address] [place] [address] Sodium [Moles/Vol] 141 mmol/L Normal 136-145 [facility] Comment on above: Performed By: #### L [id number] #### [facility] ([facility]) [address] [place] [address] Urea nitrogen [Mass/Vol] 37 mg/dL High 7-[address] [facility] Comment on above: Performed By: #### L [id number] #### [facility] ([facility]) [address] [place] [address] UREA NITROGEN/CREATININE (MASS RATIO) IN SER/PLAS 23.[address] [facility] Comment on above: Performed By: #### L [id number] #### [facility] ([facility]) [address] [place] [address] CONSULTon 10-18-2024 CONSULT Reason For Consult right frontal IPH Referring Provider: trauma surgery History Of Present Illness Constanza Wilson is a 84 y.o. female presenting with Fall; Laceration. Patient has baseline dementia. Lives in a facility. Has a POA who is an contracts attorney - not at bedside. Patient feel and had a laceration above the left eye. She is not oriented - not clear if this is her baseline. When I saw her she was talking but not severely agitated - there were nurses starting her right arm IV. Her head CT showed small right frontal intraparenchymal hemorrhage. There is evidence of a prior left sided craniotomy - the reason for that prior surgery is unknown. Past Medical History She has a past medical history of A-fib (CMS/HCC), Alzheimer's dementia (CMS/HCC), Anemia, CKD (chronic kidney disease), Depression, FLAKITO (generalized anxiety disorder), [place] (hard of hearing), and HTN (hypertension). Surgical History She has no past surgical history on file. Prior left craniotomy -identified on CT scan - the reason for that surgery is unknown Family History No family history on file. Social History She reports that she does not currently use alcohol. She reports that she does not currently use drugs. No history on file for tobacco use. Allergies Hydrocodone Medications (Not in a hospital admission) Active Hospital Medications Medication Dose Route Frequency Last Admin OLANZapine 10 mg intramuscular Once PRN 10 mg at 10/18/24 0025 Review of Systems unobtainable Last Recorded Vitals Patient Vitals for the past 24 hrs: BP Temp Temp src Pulse Resp SpO2 Height Weight 10/18/24 0158 -- -- -- 71 17 96 % -- -- 10/18/24 0059 (!) 169/96 -- -- 93 22 96 % -- -- 10/18/24 0000 153/90 -- -- 68 15 97 % -- -- 10/17/24 2159 (!) 185/84 37.1 ???C (98.7 ???F) Oral 70 16 96 % 1.753 m (5' 9) 61.2 kg (135 lb) Physical Exam Patient is lying in bed She has bruising and swelling by the left orbit Had a laceration - closed already by the ER No family or POA present No c-collar on She moves her arms and legs well She does not follow commands - but she has baseline dementia Speakgin - she said when I see him ... - this was fluent but did not make sense for the situation - I do not know for certain - but this may be her baseline Reflexes and gait deferred Coordination grossly intact CN grossly intact - though the left eye is swollen shut from jorge-orbital bruising/swelling Relevant Results No visits with results within 1 Day(s) from this visit. Latest known visit with results is: Legacy Encounter on 05/11/2019 Component Date Value Ref Range Status Protime 05/11/2019 28.1 (H) 12.3 - 14.8 sec Final Comment: ALL RESULTS MUST BE INTERPRETED WITH RESPECT TO BLOOD DRAWING ARTIFACT OR DILUTION ERROR OF ANTICOAGULANT AT THE TIME OF SAMPLING. INR 05/11/2019 2.57 (H) 0.91 - 1.16 Final Comment: [facility] RECOMMENDED INR FOR WARFARIN THERAPY - CONDITION INR PROPHYLAXIS OF VENOUS THROMBOSIS 2-3 (HIGH-RISK SURGERY) TREATMENT OF VENOUS THROMBOSIS 2-3 TREATMENT OF PULMONARY EMBOLISM 2-3 PREVENTION OF SYSTEMIC EMBOLISM: 2-3 ACUTE MYOCARDIAL INFARCTION TISSUE HEART VALVES VALVULAR HEART DISEASE ATRIAL FIBRILLATION RECURRENT SYSTEMIC EMBOLISM MECHANICAL HEART VALVE 2.5-3.5 ------- FROM: ORAL ANTICOAGULANTS. MECHANISM OF ACTION, CLINICAL EFFECTIVENESS, AND OPTIMAL THERAPEUTIC RANGE. CHEST 1995;108:231S-246S. I personally reviewed and interpreted her imaging - both CT cervical spine and CT head Both are mildly degraded by motion artifact For the brain CT there is a right frontal ICH - this is relatively small - about 1 to 1.5 cm There is no shift No hydrocephalus The basal cisterns are open The c-spine CT shows significant degenerative arthritic changes in the mid to lower c-spine - there is arthritis of the facet joints (R>L) and at c6-7 and c5-6 there is signficiant DDD - there is likely at least moderate cervical stenosis at c6-7 Assessment/Plan Assessment & Plan 84 y/o woman - has dementia by report - she fell and has a laceration over her eye with swelling near the orbit and also has a small right frontal intraparenchymal hemorrhage - likely from the trauma. She has baseline degenerative changes (facets and disc degeneration) in the c-spine and has some kyphosis and stenosis but does not have any evidence of fracture. There is evidence for a prior left sided craniotomy (reason unknown). Her INR is elevated - I talked with the trauma team and recommended that they give her vitamin K to try to normalize this. I would also recommend repeat head CT without contrast in the morning (can be done sooner if there is any other concern). She will get serial neuro checks in ICU. The trauma team is also waiting to talk with her POA. Carlos Hartley MD Normal [facility] CT ABDOMEN PELVIS WO IV CONT RASTon 10-18-2024 CT ABDOMEN PELVIS WO IV CONTRAST CT ABDOMEN AND PELVIS WITHOUT INTRAVENOUS CONTRAST HISTORY: Trauma, pain COMPARISON: None. TECHNIQUE: Routine CT abdomen/pelvis without contrast. All CT scans at this facility use dose modulation, iterative reconstruction, and/or weight based dosing when appropriate to reduce radiation dose to as low as reasonably achievable. FINDINGS: Please refer to separate report for chest findings. Examination compromised by motion artifact. The liver, gallbladder, kidneys, adrenal glands, spleen, and pancreas are unremarkable. Diffuse atherosclerotic disease. Coarse calcification in the left pelvis measuring approximately 2.6 cm. Significant motion artifact in the pelvis. There is a pessary device in place. The bladder is unremarkable. The small and large bowel are of normal caliber with no evidence of bowel wall thickening. No free fluid in the abdomen or pelvis. No free intraperitoneal air. Advanced degenerative changes in the spine. IMPRESSION: * No convincing acute traumatic injury in the abdomen/pelvis, however study is significantly compromised by motion artifact. Electronically signed: Raymond Hughes MD. Normal [facility] CT CERVICAL SPINE WO IV CONT RASTon 10-18-2024 CT CERVICAL SPINE WO IV CONTRAST CT CERVICAL SPINE WITHOUT CONTRAST HISTORY: Fall, pain COMPARISON: None TECHNIQUE: Routine CT cervical spine without contrast. All CT scans at this facility use dose modulation, iterative reconstruction, and/or weight based dosing when appropriate to reduce radiation dose to as low as reasonably achievable. FINDINGS: No acute fracture. The predental space and craniocervical junction are maintained. Facet joints align normally. Advanced multilevel facet arthropathy. Severe multilevel disc related degenerative disease. Prevertebral soft tissue swelling. Bilateral carotid artery calcifications. The paravertebral soft tissues are otherwise unremarkable. IMPRESSION: * No acute osseous abnormalities in the cervical spine. Electronically signed: Raymond Hughes MD. Normal [facility] CT CHEST WO IV CONTRASTon CT CHEST WO IV CONTRAST CT CHEST WITHOUT CONTRAST HISTORY: Trauma, fall from standing, pain COMPARISON: None. TECHNIQUE: Routine CT chest without contrast. All CT scans at this facility use dose modulation, iterative reconstruction, and/or weight based dosing when appropriate to reduce radiation dose to as low as reasonably achievable. FINDINGS: Please refer to separate report for abdominal findings. Emphysema. Examination compromised by motion artifact. No pneumothorax. No airspace disease. The central airways are patent. No pleural or pericardial effusions. Atherosclerotic thoracic aorta. The central pulmonary arteries are unremarkable. Coronary artery calcifications. No enlarged thoracic lymph nodes. Severe degenerative changes in the shoulders. No acute osseous abnormalities or aggressive osseous lesions. IMPRESSION: * No acute traumatic injury identified in the chest. Electronically signed: Raymond Hughes MD. [facility] CT HEAD WO IV CONTRASTon CT HEAD WO IV CONTRAST Clinical History and Information: Fall, intracranial bleed Findings: Contrast: None Multidetector helical CT was performed of the brain. Axial sagittal coronal images were reviewed. Automated exposure control was utilized. All CT scans at this facility use dose modulation, iterative reconstruction, and/or weight based dosing when appropriate to reduce radiation dose to as low as reasonably achievable. Comparison: Acute focal hemorrhage apex of the right parietal hemisphere measuring 2 cm. No midline shift nor mass effect. No additional hemorrhages. Ventricles and cisterns unremarkable. Chronic microvascular ischemic changes in the periventricular white matter. Calvarium notable for prior left-sided craniotomy. Chronic inflammation involving the maxillary sinuses. IMPRESSION: Impression: * Acute parenchymal hemorrhage/contusion apex right parietal hemisphere without mass effect. Electronically signed: Mack William. [facility] CT HEAD WO IV CONTRAST CT HEAD WITHOUT CONTRAST HISTORY: Fall, pain COMPARISON: None. TECHNIQUE: Routine noncontrast CT head. All CT scans at this facility use dose modulation, iterative reconstruction, and/or weight based dosing when appropriate to reduce radiation dose to as low as reasonably achievable. FINDINGS: Left periorbital hematoma/laceration. There is a hemorrhagic contusion in the superior aspect of the right frontal lobe measuring 2.0 cm. No evidence of ventricular outflow obstruction. No extra-axial hemorrhage. Mucosal thickening in the maxillary sinuses. Previous left-sided craniotomy. IMPRESSION: * Hemorrhagic contusion in the right frontal lobe measuring 2.0 cm. * Left periorbital hematoma/laceration. Discussed with Dr. Diaz on 10/18/2024 at 1:47 AM Electronically signed: Raymond Hughes MD. [facility] DSon 10-18-2024 DS Admission Admitted 10/17/2024 for Fall Laceration left supraorbital region Left periorbital hematoma Right frontal lobe hemorrhagic contusion Discharge Diagnosis Fall Laceration left supraorbital region Left periorbital hematoma Right frontal lobe hemorrhagic contusion Discharge Disposition [facility] (63) Discharge Medications Your medication list START taking these medications Instructions Last Dose Given Next Dose Due bacitracin 500 unit/gram ointment Apply topically three times daily for 14 doses. CONTINUE taking these medications Instructions Last Dose Given Next Dose Due acetaminophen 325 mg capsule Commonly known as: Tylenol ALPRAZolam 0.25 mg tablet Commonly known as: Xanax busPIRone 15 mg tablet Commonly known as: Buspar hydrOXYzine HCL 25 mg tablet Commonly known as: Atarax levothyroxine 112 mcg tablet Commonly known as: Synthroid, Levoxyl metoprolol succinate XL 25 mg 24 hr tablet Commonly known as: Toprol-XL mirtazapine 15 mg tablet Commonly known as: Remeron multivitamin 9 mg iron-400 mcg tablet Commonly known as: Theragran-M STOP taking these medications permethrin 5 % cream Commonly known as: Elimite promethazine 25 mg/mL injection Commonly known as: Phenergan Where to Get Your Medications You can get these medications from any pharmacy Bring a paper prescription for each of these medications bacitracin 500 unit/gram ointment Activity Normal activity as tolerated No driving. Diet Continue on the same type of diet and foods as you were eating before your admission. Drink plenty of water. Allergies Hydrocodone Hospital Course Constanza Wilson is a 84 y.o. y/o female who presented as a trauma consult on 10/17/2024 following a witnessed fall from standing resulting in a left supraorbital laceration with hematoma and a right frontal lobe hemorrhagic contusion. Patient was admitted to SICU for close monitoring. Neurosurgery was consulted and repeat head CT was stable, patient was cleared for DC back to her facility. Of note patient did come [facility] her [facility] but as her POA was unable to be reached at time of admission, however this was confirmed later, POA confirmed that they wanted comfort measures only. Supportive care was provided by primary team throughout hospital admission including but not limited to multimodal pain control, electrolyte replacement, bowel regimen, DVT prophylaxis. Patient is to follow up with PCP 1 week from discharge, neurosurgery as scheduled, and trauma clinic on an as needed basis. Patient was educated of discharge instructions and return precautions, patient verbalized understanding. All questions answered and concerns addressed. Patient was discharged to ECF in stable condition on 10/18/23. Pertinent Physical Exam At Time of Discharge Physical Exam General: Awake, drowsy, No acute distress Head: Normocephalic. Mid Face Stable. Nares Patent Bilaterally, No Epistaxis. Mouth Clear Of Foreign Bodies, laceration to left orbit approximated with steri strips Eyes: PERRL. EOMI. Neurologic: Spontaneous symmetrical movement of all 4 extremities, withdraws from pain in all 4 Lungs: Clear To Auscultation Bilaterally With Normal Work Of Breathing On Room Air Chest Wall: Chest Rise Symmetrical. No Crepitus, Deformities, Lacerations, Or Abrasions Heart: RRR. Normal S1/S2. No Obvious Murmurs Abdomen: Soft, Nontender, And Nondistended With Normoactive Bowel Sounds. No Guarding, Non-Peritoneal Pelvis: Pelvis Is Stable To Compression GI/: No Blood At The Urinary Meatus. No Gross Hematuria Extremities: No Gross Deformities. Pulse, Motor, And Sensation Intact Bilaterally Skin: Warm And Dry. Normal For Ethnicity Lab Results Labs Reviewed COMPREHENSIVE METABOLIC PANEL - Abnormal Result Value Sodium 141 Potassium 4.4 Chloride 112 (*) CO2 24 Anion Gap 9 BUN 37 (*) Creatinine 1.59 (*) BUN/Creatinine Ratio 23.3 Glucose 108 (*) Calcium 9.6 AST 16 ALT (SGPT) 6 (*) Alkaline Phosphatase 67 Total Protein 7.6 Albumin 4.4 Total Bilirubin 0.5 eGFR 31.8 (*) PROTIME-INR - Abnormal Protime 14.9 (*) INR 1.17 (*) URINALYSIS WITH REFLEX CULTURE - Abnormal Color, Urine Light-Yellow Clarity, Urine Clear pH, Urine 6.0 Leukocytes, Urine Moderate (*) Nitrite, Urine Positive (*) Protein, Urine Negative Glucose, Urine Normal Bilirubin, Urine Negative Specific [place], Urine 1.018 Ketones, Urine Negative Blood, Urine Negative Urobilinogen, Urine Normal TOXICOLOGY PANEL URINE - Abnormal Barbiturate Screen, Ur Negative Benzodiazepines Screen, Urine Positive (*) Propoxyphene, Ur Negative Methadone Screen, Urine Negative TCA, Urine Negative PCP Scrn, Ur Negative Opiate Scrn, Ur Negative Cocaine Screen, Urine Negative Amphetamine+Methamphe tamine Screen, Ur Negative Cannabinoid Screen, Urine Negative CBC WITH (more content not included)... Normal [facility] HPon 10-18-2024 HP Subjective Date and Time of Injury: 10/17/24 prior to arrival Date and Time of Patient Arrival: 10/17/242154 Chief Complaint: Trauma Fall Mechanism of Injury (History of what occurred prior to arrival): 84 y.o. year old female who was brought in via EMS. She had no C-collar or back board in place. Circumstances of injury: Patient is not answering questions, comes from [facility] unit at [facility] and is not cooperative with interview, history obtained from chart review and ER physician. Witnessed fall from standing. No loss of consciousness with fall but sustained laceration over left eye. Patient is not on any anticoagulants and is documented to be DNR-CC. Reported history of agitation and combativeness with EMS. Review of Systems: unable to obtain due to critical condition of patient History The following information was obtained through chart review as the patient was unable to provide information due to emergency nature and/or medical condition Past Medical History: has a past medical history of A-fib ([facility]), Alzheimer's dementia ([facility]), Anemia, CKD (chronic kidney disease), Depression, FLAKITO (generalized anxiety disorder), [place] (hard of hearing), and HTN (hypertension). Past Surgical History: has no past surgical history on file. Allergies: Hydrocodone Home Medications: (Not in a hospital admission) Social History: reports that she does not currently use alcohol. She reports that she does not currently use drugs. No history on file for tobacco use. Family History: pulled available information in [facility] from previous visits No family history on file. Objective Vitals: BP: (153-188)/(70-99) 162/70 (10/18 299) Systolic BP Percentile: -- Diastolic BP Percentile: -- Temp: [37.1 ???C (98.7 ???F)] 37.1 ???C (98.7 ???F) (10/17 2158) Temp Source: Oral (10/17 2158) Heart Rate: [58-93] 58 (10/18 299) Resp: [15-22] 17 (10/18 299) SpO2: [95 %-97 %] 95 % (10/18 299) Height: [175.3 cm (5' 9)] 175.3 cm (5' 9) (10/17 2158) Weight: [61.2 kg (135 lb)] 61.2 kg (135 lb) (10/17 2158) Matt Coma Scale Score: 14 Physical Exam: General: Awake, Alert, Not responding to questions Head: Laceration with about 6 sutures over left eye with periorbital hematoma/bruising of left face Eyes: Pupils about 2mm bilaterally and reactive, unable to assess EOMI due to patient cooperation Neurologic: Alert. Moving Extremities but not Following Commands. GCS 12 (E4, V3, M5) Neck: Cervical Spine Is Nontender To Palpation Without Step-Offs, Crepitus, Or Deformity. No Abrasions, Contusions, Or Ecchymosis Noted Back: Thoracic and Lumbar Spine Are Nontender To Palpation Without Step-Offs, Crepitus, Or Deformity. No Abrasions, Contusions, Or Ecchymosis Noted Lungs: Clear to Auscultation Bilaterally With Normal Work Of Breathing Chest Wall: Chest Rise Symmetrical. No Crepitus, Deformities, Lacerations, Or Abrasions Cardiovascular: regular rate and rhythm. Palpable femoral/radial/DP pulses bilaterally Abdomen: Soft, Nontender, and Nondistended With Normoactive Bowel Sounds. No Guarding. No bruising or abrasions noted Pelvis: Pelvis Is Stable to Compression : Deferred Rectal exam: Deferred Extremities: No Gross Deformities noted. Skin: Warm And Dry. Normal For Ethnicity Psych: Not cooperative, agitated Labs: Recent Results (from the past 12 hour(s)) Comprehensive metabolic panel Collection Time: 10/18/24 2:26 AM Result Value Ref Range Sodium 141 136 - 145 mmol/L Potassium 4.4 3.5 - 5.1 mmol/L Chloride 112 (H) 98 - 107 mmol/L CO2 24 21 - 31 mmol/L Anion Gap 9 7 - 20 mmol/L BUN 37 (H) 7 - 25 mg/dL Creatinine 1.59 (H) 0.60 - 1.20 mg/dL BUN/Creatinine Ratio 23.3 Glucose 108 (H) 70 - 100 mg/dL Calcium 9.6 8.6 - 10.3 mg/dL AST 16 13 - 39 U/L ALT (SGPT) 6 (L) 7 - 52 U/L Alkaline Phosphatase 67 34 - 104 U/L Total Protein 7.6 6.0 - 8.3 g/dL Albumin 4.4 3.5 - 5.7 g/dL Total Bilirubin 0.5 0.3 - 1.0 mg/dL eGFR 31.8 (L) >60.0 mL/min/1.73m*2 Lactic acid, plasma Collection Time: 10/18/24 2:26 AM Result Value Ref Range Lactate 0.8 0.5 - 2.2 mmol/L Magnesium Collection Time: 10/18/24 2:26 AM Result Value Ref Range Magnesium 2.0 1.9 - 2.7 mg/dL Troponin I Collection Time: 10/18/24 2:26 AM Result Value Ref Range Troponin I 0.01 0.00 - 0.04 ng/mL Protime-INR Collection Time: 10/18/24 2:26 AM Result Value Ref Range Protime 14.9 (H) 12.3 - 14.8 Seconds INR 1.17 (H) 0.90 - 1.10 APTT Collection Time: 10/18/24 2:26 AM Result Value Ref Range aPTT 30.5 25.0 - 35.0 Seconds Urinalysis with reflex culture Collection Time: 10/18/24 2:26 AM Result Value Ref Range Color, Urine Light-Yellow Colorless, Yellow, Light-Yellow Clarity, Urine Clear Clear pH, Urine 6.0 5.0 - 8.0 pH Leukocytes, Urine Moderate (A) Negative Nitrite, Urine Positive (A) Negative Protein, Urine Negative Negative mg/dL Glucose, Urine Normal Normal mg/dL Bilirubin, (more content not included)... Normal [facility] LACTIC ACID, PLASMAon 2024 LACTATE (MMOL/L) IN SER/PLAS 0.8 mmol/L Normal 0.5-2.[address] [facility] Comment on above: Performed By: #### L [id number] #### [facility] ([facility]) [address] [place] [address] MAGNESIUMon 10-18-2024 Magnesium [Mass/Vol] 1.9 mg/dL Normal 1.9-2.7 [facility] Comment on above: Performed By: #### L [id number] #### [facility] ([facility]) [address] [place] [address] Magnesium [Mass/Vol] 2.0 mg/dL Normal 1.9-2.7 [facility] Comment on above: Performed By: #### L [id number] #### [facility] ([place]) [address] [place] [address] PHOSPHORUSon 10-18-2024 Magnesium [Mass/Vol] 3.7 mg/dL Normal 2.5-5.0 [facility] Comment on above: Performed By: #### L [id number] #### [facility] ([place]) [address] [place] [address] PROTIME-INRon 10-18-2024 INR IN PPP BY COAGULATION ASSAY 1.17 High 0.90-1.[address] [facility] Comment on above: Result Comment: [facility] P RECOMMENDED INR FOR WARFARIN THERAPY CONDITION INR PROPHYLAXIS OF VENOUS THROMBOSIS 2-3 (HIGH-RISK SURGERY) TREATMENT OF VENOUS THROMBOSIS 2-3 TREATMENT OF PULMONARY EMBOLISM 2-3 PREVENTION OF SYSTEMIC EMBOLISM: 2-3 ACUTE MYOCARDIAL INFARCTION TISSUE HEART VALVES VALVULAR HEART DISEASE ATRIAL FIBRILLATION RECURRENT SYSTEMIC EMBOLISM MECHANICAL HEART VALVE 2.5-3.5 FROM: ORAL ANTICOAGULANTS. MECHANISM OF ACTION, CLINICAL EFFECTIVENESS, AND OPTIMAL THERAPEUTIC RANGE. CHEST 1995;108:231S-246S. Performed By: #### L [id number] #### [facility] ([facility]) [address] [place] [address] PROTHROMBIN TIME (PT) IN PPP BY COAGULATION ASSAY 14.9 Seconds High 12.3-14.[address] [facility] Comment on above: Performed By: #### L [id number] #### [facility] [employer] [address] [place] [address] TOXICOLOGY PANEL URINEon AMPHETAMINE+METHAMPHET AMINE SCREEN (PRESENCE) IN URINE Negative Normal Negative [facility] Comment on above: Performed By: #### L [id number] #### [facility] ([facility]) [address] [place] [address] BARBITURATES PRESENCE IN URINE BY SCREEN METHOD Negative Normal Negative [facility] Comment on above: Performed By: #### L [id number] #### [facility] ([facility]) [address] [place] [address] Benzodiazepines Ql (U) Positive Abnormal Negative [facility] Comment on above: Performed By: #### L [id number] #### [facility] ([facility]) [address] [place] [address] CANNABINOID ([place]) IN URINE BY SCREEN METHOD Negative Normal Negative [facility] Comment on above: Performed By: #### L [id number] #### [facility] ([facility]) [address] [place] [address] Cocaine Ql (U) Negative Normal Negative [facility] Comment on above: Performed By: #### L [id number] #### [facility] ([facility]) [address] [place] [address] METHADONE ([place]) IN URINE BY SCREEN METHOD Negative Normal Negative [facility] [facility] Comment on above: Performed By: #### L [id number] #### [facility] ([facility]) [address] [place] [address] OPIATES (PRESENCE) IN URINE BY SCREEN METHOD Negative Normal Negative [facility] Comment on above: Performed By: #### L [id number] #### [facility] ([facility]) [address] [place] [address] PHENCYCLIDINE PRESENCE IN URINE BY SCREEN METHOD Negative Normal Negative [facility] Comment on above: Performed By: #### L [id number] #### [facility] ([facility]) [address] [place] [address] Propoxyphene Screen Ql (U) Negative Normal Negative [facility] Comment on above: Performed By: #### L [id number] #### [facility] ([facility]) [address] [place] [address] TRICYCLIC ANTIDEPRESSANTS (PRESENCE) IN URINE Negative Normal Negative [facility] Comment on above: Performed By: #### L [id number] #### [facility] ([facility]) [address] [place] [address] TROPONIN Ion 10-18-2024 Troponin I.cardiac [Mass/Vol] 0.01 ng/mL Normal 0.00-0.[address] [facility] Comment on above: Performed By: #### L [id number] #### [facility] ([facility]) [address] [place] [address] URINALYSIS MICROSCOPIC WITH REFLEX CULTUREon 10-18-2024 RBC (#/HPF) IN URINE SEDIMENT 6-10 Abnormal None Seen, 0-[address] [facility] Comment on above: Performed By: #### L [id number] #### [facility] ([facility]) [address] [place] [address] SQUAMOUS EPITHELIAL CELLS (#/LPF) IN URINE SEDIMENT Few Normal None Seen, Occasional, Few [facility] Comment on above: Performed By: #### L [id number] #### [facility] ([facility]) [address] [place] [address] WBC (LEUKOCYTE) (#/HPF) IN URINE SEDIMENT 21-50 Abnormal None Seen, 0-[address] [facility] Comment on above: Performed By: #### L [id number] #### [facility] ([facility]) [address] [place] [address] URINALYSIS WITH REFLEX CULTU REon 10-18-2024 BILIRUBIN, TOTAL PRESENCE IN URINE Negative Normal Negative [facility] Comment on above: Performed By: #### L [id number] #### [facility] ([facility]) [address] [place] [address] Clarity (U) Clear Normal Clear [facility] Comment on above: Performed By: #### L [id number] #### [facility] ([facility]) [address] [place] [address] Color (U) Light-Yellow Normal Colorless, Yellow, Light-Yellow [facility] Comment on above: Performed By: #### L [id number] #### [facility] ([facility]) [address] [place] [address] GLUCOSE (MG/DL) IN URINE Normal Normal Normal [facility] Comment on above: Performed By: #### L [id number] #### [facility] ([facility]) [address] [place] [address] HEMOGLOBIN PRESENCE IN URINE Negative Normal Negative [facility] Comment on above: Performed By: #### L [id number] #### [facility] ([facility]) [address] [place] [address] Ketones Ql (U) Negative Normal Negative [facility] Comment on above: Performed By: #### L [id number] #### [facility] ([facility]) [address] [place] [address] LEUKOCYTE ESTERASE PRESENCE IN URINE BY TEST STRIP Moderate Abnormal Negative [facility] Comment on above: Performed By: #### L [id number] #### [facility] ([facility]) [address] [place] [address] NITRITE PRESENCE IN URINE Positive Abnormal Negative [facility] Comment on above: Performed By: #### L [id number] #### [facility] ([facility]) [address] [place] [address] pH (U) 6.0 [pH] Normal 5.0-8.[address] [facility] Comment on above: Performed By: #### L [id number] #### [facility] ([facility]) [address] [place] [address] Protein (U) [Mass/Vol] Negative Normal [facility] Comment on above: Performed By: #### L [id number] #### [facility] ([facility]) [address] [place] [address] Specific gravity (U) [Rel density] 1.018 Normal 1.010-1.[address] [facility] Comment on above: Performed By: #### L [id number] #### [facility] ([facility]) [address] [place] [address] UROBILINOGEN (MG/DL) IN URINE Normal Normal Normal [facility] Comment on above: Performed By: #### L [id number] #### [facility] ([facility]) [address] [place] [address] URINE CULTURE, ROUTINEon Amoxicillin+Clavulanat e [Susc] 16/8 Invalid Interpretation Code [facility] Comment on above: Performed By: #### L [id number] #### [facility] ([facility]) [address] [place] [address] Ampicillin [Susc] 16 ug/ml Invalid Interpretation Code [facility] Comment on above: Performed By: #### L [id number] #### [facility] ([facility]) [address] [place] [address] Ampicillin+Sulbactam [Susc] 8/ Susceptible [facility] Comment on above: Performed By: #### L [id number] #### [facility] ([facility]) [address] [place] [address] Beta lactamase.extended spectrum [Susc] Negative Invalid Interpretation Code [facility] Comment on above: Performed By: #### L [id number] #### [facility] ([facility]) [address] [place] [address] ceFAZolin [Susc] Susceptible [facility] Comment on above: Performed By: #### L [id number] #### [facility] ([facility]) [address] [place] [address] cefTRIAXone [Susc] <=1 Susceptible [facility] Comment on above: Performed By: #### L [id number] #### [facility] ([facility]) [address] [place] [address] Ciprofloxacin [Susc] <=0.25 Susceptible [facility] Comment on above: Performed By: #### L [id number] #### [facility] ([facility]) [address] [place] [address] Gentamicin [Susc] <=2 Susceptible [facility] Comment on above: Performed By: #### L [id number] #### [facility] ([facility]) [address] [place] [address] Nitrofurantoin [Susc] <=16 Susceptible [facility] Comment on above: Performed By: #### L [id number] #### [facility] ([facility]) [address] [place] [address] Tobramycin [Susc] <=2 Susceptible [facility] Comment on above: Performed By: #### L [id number] #### [facility] ([facility]) [address] [place] [address] Trimethoprim+Sulfameth oxazole [Susc] <=0.5/9.[address] [facility] Comment on above: Performed By: #### L [id number] #### [facility] ([facility]) [address] [place] [address] EDNURSon 10-17-2024 EDNURS Mode of arrival (squad #, walk in, police, etc): Medic 21, stretcher, from F Chief complaint(s): Fall, laceration Arrival Note (brief scenario, treatment GOLF CADDIE, etc): Patient to ER via EMS from [facility] for c/o witnessed fall from standing resulting in a laceration above the left eye. Staff at facility denies loss of consciousness or any other injury. Bleeding controlled to laceration site. Patient does not take blood thinners per report. Patient is a DNRCC code status. No alteration in mentation per staff. Patient has history of agitation/combativene ss when she is touched per EMS report. Arrives to facility awake, alert, and calm. Normal [facility] EDPROVon 10-17-2024 EDPROV History of Present Illness Chief Complaint Patient presents with Fall Laceration Above left eye 84-year-old female with past medical history advanced Alzheimer's dementia presents by EMS from [facility] for c/o witnessed fall from standing resulting in a laceration above the left eye. Staff at facility denies loss of consciousness or any other injury. Bleeding controlled to laceration site. Patient does not take blood thinners per report. Patient is a DNRCC code status. No alteration in mentation per staff. Patient has history of agitation/combativene ss when she is touched per EMS report. patient noted to be profoundly verbally combative. Uncooperative at this time. [place] Coma Scale Score: 14 History Past Medical History: Diagnosis Date A-fib ([facility]) not on anticoagulants Alzheimer's dementia ([facility]) Anemia CKD (chronic kidney disease) Depression FLA[place]ITO (generalized anxiety disorder) [place] (hard of hearing) HTN (hypertension) History reviewed. No pertinent surgical history. No family history on file. Social History Tobacco Use Smoking status: Unknown Smokeless tobacco: Not on file Vaping Use Vaping status: Never Used Substance Use Topics Alcohol use: Not Currently Drug use: Not Currently Review of Systems Review of Systems Physical Exam ED Triage Vitals [10/17/24 2159] Temp Heart Rate Resp BP 37.1 ???C (98.7 ???F) 70 16 (!) 185/84 SpO2 Temp Source Heart Rate Source Patient Position 96 % Oral Monitor Sitting BP Location FiO2 (%) Left arm -- Physical Exam Procedures ED Course & MDM Medical Decision Making Attestion Normal [facility] EDPROV History of Present Illness Chief Complaint Patient presents with Fall Laceration Above left eye 84-year-old female with past medical history advanced Alzheimer's dementia presents by EMS from [facility] for c/o witnessed fall from standing resulting in a laceration above the left eye. Staff at facility denies loss of consciousness or any other injury. Bleeding controlled to laceration site. Patient does not take blood thinners per report. Patient is a DNRCC code status. No alteration in mentation per staff. Patient has history of agitation/combativene ss when she is touched per EMS report. patient noted to be profoundly verbally combative. Uncooperative at this time. [place] Coma Scale Score: 14 History Past Medical History: Diagnosis Date A-fib ([facility]) not on anticoagulants Alzheimer's dementia ([facility]) Anemia CKD (chronic kidney disease) Depression FLA[place]O (generalized anxiety disorder) [place] (hard of hearing) HTN (hypertension) History reviewed. No pertinent surgical history. No family history on file. Social History Tobacco Use Smoking status: Unknown Smokeless tobacco: Not on file Vaping Use Vaping status: Never Used Substance Use Topics Alcohol use: Not Currently Drug use: Not Currently Review of Systems Review of Systems Physical Exam ED Triage Vitals [10/17/24 5959] Temp Heart Rate Resp BP 37.1 ???C (98.7 ???F) 70 16 (!) 185/84 SpO2 Temp Source Heart Rate Source Patient Position 96 % Oral Monitor Sitting BP Location FiO2 (%) Left arm -- Physical Exam Laceration Repair Performed by: Delilah Diaz MD Authorized by: Delilah Diaz MD Consent: Consent obtained: patient has advance dementia, unable due to altered awareness. Consent given by: Guardian Procedural risks discussed: advanced dementia patient. Alternatives discussed: advanced dementia patient. [place] protocol: Patient identity confirmed: Arm band Anesthesia: Anesthesia method: Local infiltration Local anesthetic: Lidocaine 1% WITH epi Laceration details: Location: Face Face location: L eyebrow Length (cm): 6 Depth (mm): 3 Pre-procedure details: Preparation: Patient was prepped and draped in usual sterile fashion and imaging obtained to evaluate for foreign bodies ED Course & MDM ED Course as of 10/18/24 0715 Sun Oct 18, 2024 0149 radiologist who reported patient had a frontal lobe hematoma [NF] 0200 CT cervical spine wo IV contrast No acute osseous abnormalities in the cervical spine. [NF] 0200 CT head wo IV contrast Hemorrhagic contusion in the right frontal lobe measuring 2.0 cm. *Left periorbital hematoma/laceration. [NF] 0200 Trauma surgery consulted for evaluation of left frontal lobe hematoma [NF] 0201 XR pelvis 1 or 2 views Suggestion of osseous overlap in the right femoral head/neck, which may be projectional in nature however if there is pain referrable to the right hip or other concern for hip fracture consider dedicated right hip radiographs or further assessment with CT. *Degenerative changes in the visualized lower lumbar spine. [NF] 0647 CT abdomen pelvis wo IV contrast No convincing acute traumatic injury in the abdomen/pelvis, however study is significantly compromised by motion artifact. [NF] 0647 CT chest wo IV contrast No acute traumatic injury identified in the chest. [NF] 0648 surgery admitted for observation for repeat head CT in a.m. [NF] ED Course User Index [NF] Delilah iDaz MD Diagnoses as of 10/18/24 0715 Facial laceration, initial encounter Fall, initial encounter Acute urinary tract infection Laceration of brow without complication, initial encounter Focal hemorrhagic contusion of cerebrum (CMS/HCC) Medical Decision Making 84-year-old female with history of advanced Alzheimer's presents from longterm for witnessed fall. Patient was reported to have fallen face first hitting her eye. History admitted due to patient's baseline conditions. On initial evaluation patient is uncooperative and easily agitated. Noted to be moving all extremities. Head to exam notable for left supraorbital bruising and laceration measuring 5 to 6 cm. No reports of any loss of consciousness. Differentials pulmonology to UTI, traumatic brain injury, cervical spine injury unlikely, infection, [place] derangements contributing to fall. No reports of any seizure activity. Patient's tetanus was updated along with laceration was sutured with lidocaine after patient was given benzos and Zyprexa to help calm agitation. CT scan was performed and patient was noted to have subdural hematoma without any midline shift. Trauma was consulted and patient was admitted for observation. Patient noted to be DNR CC status. Noted to have a UTI for which she was treated. Attestion Delilah Diaz MD 10/27/24 1612 Invalid Interpretation Code [facility] Surgery Specimen Level Lliian 10-14-2024 Surgery Specimen Level IV -------- Patient Age/Sex Location Account Attending Physician -------- CONSTANZA YOUNGBLOOD 84/F LABSPEC [id number] Dr. Rufus Vidal MD -------- Specimen: [id number] Received: 10/15/24 Status: FERMIN Velasquez Num: [id number] Spec Type: Lesion Subm Dr: Dr. Rufus Vidal MD HEADER OPERATION: Left forearm biopsy PRE-OP DIAGNOSIS: Suspicious of squamous cell carcinoma TISSUE SUBMITTED: Excision of left forearm -------- MICROSCOPIC DIAGNOSIS Left forearm lesion, excisional biopsy: Well differentiated invasive squamous cell carcinoma, completely excised. Verrucous keratosis. Solar elastosis. See comment. .mr 10/19/2024 COMMENT Invasive carcinoma measures 0.1cm in greatest dimension. Perineural and lymphvascular invasion are not identified. This case has been reviewed in consultation with Dr. Lakhani and Dr. Acosta who concurs with the above diagnosis. IDC: ALFRED FELDMAN MICROSCOPIC DESCRIPTION Slides are reviewed. GROSS DESCRIPTION Received in fixative is one container labeled with the patient's name and designated Left forearm. The specimen consists of a cristobal-white skin ellipse measuring 2.0 x 1.0cm and up to 0.4cm in thickness. Skin surface shows a white round lesion measuring 1.0 x 0.9cm. The specimen is inked, serially sectioned and submitted entirely in one cassette. .mr 10/15/2024 TC:0 CPT:92911 -------- Patient Age/Sex Location Account Attending Physician -------- CONSTANZA YOUNGBLOOD 84/F LABSPEC [id number] Dr. Rufus Vidal MD -------- Signed (signature on file) Dr. Coy Dueñas MD 10/19/24 1101 -------- Normal [facility] Comment on above: Performed By: #### P TERESA #### [facility] [place], [address] CBC-Complete Blood Cnt No Di ffon 09-25-2024 Erythrocyte distribution width (RBC) [Ratio] 15.1 % High 11.6-14.6 [facility] Comment on above: Order Comment: Order Date: 09/17/24 Order Info: [id number] - CBC Performed By: #### L [id number], L503.0105, L100.0500, L506.1000 #### [facility] [address] [place], [address] Hematocrit (Bld) [Volume fraction] 44.7 % Normal 37-47 [facility] Comment on above: Order Comment: Order Date: 09/17/24 Order Info: [id number] - CBC Performed By: #### L [id number], L503.0105, L100.0500, L506.1000 #### [facility] [address] [place], [address] Hemoglobin (Bld) [Mass/Vol] 13.9 g/dL Normal 12.0-15.0 [facility] Comment on above: Order Comment: Order Date: 09/17/24 Order Info: [id number] - CBC Performed By: #### L [id number], L503.0105, L100.0500, L506.1000 #### [facility] [address] [place], [address] MCH (RBC) [Entitic mass] 26.6 pg Low 27.0-32.0 [facility] Comment on above: Order Comment: Order Date: 09/17/24 Order Info: [id number] - CBC Performed By: #### L [id number], L503.0105, L100.0500, L506.1000 #### [facility] [address] [place], [address] MCHC (RBC) [Mass/Vol] 31.1 g/dL Low 32-36 [facility] Comment on above: Order Comment: Order Date: 09/17/24 Order Info: [id number] - CBC Performed By: #### L [id number], L503.0105, L100.0500, L506.1000 #### [facility] [address] [place], [address] MCV (RBC) [Entitic vol] 85.6 fL Normal 81-99 [facility] Comment on above: Order Comment: Order Date: 09/17/24 Order Info: [id number] - CBC Performed By: #### L [id number], L503.0105, L100.0500, L506.1000 #### [facility] [address] [place], [address] Platelet mean volume (Bld) [Entitic vol] 9.0 fL Normal 6.2-12.0 [facility] Comment on above: Order Comment: Order Date: 09/17/24 Order Info: [id number] - CBC Performed By: #### L [id number], L503.0105, L100.0500, L506.1000 #### [facility] [address] [place], [address] Platelets (Bld) [#/Vol] 193 10*3/uL Normal 150-450 [facility] Comment on above: Order Comment: Order Date: 09/17/24 Order Info: [id number] - CBC Performed By: #### L [id number], L503.0105, L100.0500, L506.1000 #### [facility] [address] [place], [address] RBC (Bld) [#/Vol] 5.22 10*6/uL Normal 4.2-5.4 [facility] Comment on above: Order Comment: Order Date: 09/17/24 Order Info: [id number] - CBC Performed By: #### L [id number], L503.0105, L100.0500, L506.1000 #### [facility] [address] [place], [address] RDW SD 47.6 fl High 35.1-43.9 [facility] Comment on above: Order Comment: Order Date: 09/17/24 Order Info: [id number] - CBC Performed By: #### L [id number], L503.0105, L100.0500, L506.1000 #### [facility] [address] [place], [place], [address] WBC (Bld) [#/Vol] 8.6 10*3/uL Normal 4.4-11.0 [facility] Comment on above: Order Comment: Order Date: 09/17/24 Order Info: [id number] - CBC Performed By: #### L [id number], L503.0105, L100.0500, L506.1000 #### [facility] [address] [facility] [place], [place], [address] Ferritinon 09-25-2024 Ferritin [Mass/Vol] 79 ng/mL [facility] Comment on above: FERRITIN Reference Ranges: Adult Males 20 - 60 years: 30 - 400 ng/mL Adult females 17 - 60 years: 13 - 150 ng/mL Adults greater than 60 years: no established reference range Pediatrics: no established reference range [facility] Ferritin [Mass/Vol] 79 ng/mL Normal [facility] Comment on above: Result Comment: FERRITIN Reference Ranges: Adult Males 20 - 60 years: 30 - 400 ng/mL Adult females 17 - 60 years: 13 - 150 ng/mL Adults greater than 60 years: no established reference range Pediatrics: no established reference range Performed By: #### F JUVENTINO, CBC #### [facility] [address] [place] [address] Community Health Navigator: Bin Mckeon MD Thyroid Stim Hormone (TSH)on 09-25-2024 TSH 1.510 uIU/mL Normal 0.358-3.740 [facility] Comment on above: Order Comment: Order Date: 09/17/24 Order Info: [id number] - TSH Performed By: #### L [id number], L503.0105, L100.0500, L506.1000 #### [facility] [address] [place], [address] Vitamin B12on 09-25-2024 Cobalamin (Vitamin B12) [Mass/Vol] 426 pg/mL Normal 211-911 [facility] Comment on above: Order Comment: Order Date: 09/17/24 Order Info: [id number] - B12 Order Info: [id number] - VITD25 Performed By: #### L [id number], L503.0105, L100.0500, L506.1000 #### [facility] [address] [place], [address] Vitamin D,25 Hydroxyon 09-25 Vitamin D 25-OH 65.6 ng/mL Normal [facility] Comment on above: Order Comment: Order Date: 09/17/24 Order Info: 9 - B12 Order Info: [id number] - VITD25 Result Comment: Magda min D 25(OH) Status Range Deficiency <20 ng/mL (50nmol/L) Insufficiency 20 - 30 ng/mL (50 - 75 nmol/L) Sufficiency 30 - 100 ng/mL (75 - 250 nmol/L) Toxicity >100 ng/mL (>250 nmol/L) Performed By: #### L [id number], L503.0105, L100.0500, L506.1000 #### [facility] [address] [place], [address] CBCon 09-16-2024 Erythrocyte distribution width (RBC) [Ratio] 13.2 % Normal 11.8-14.4 [facility] Comment on above: Performed By: #### Zeny JAUREGUI, CBC #### [facility] [address] [place] [address] Community Health Navigator: Bin Mckeon MD Hematocrit (Bld) [Volume fraction] 32.2 % Low 36.3-47.1 [facility] Comment on above: Performed By: #### F JUVENTINO, CBC #### [facility] [address] [facility] [place] [address] Community Health Navigator: Bin Mckeon MD Hemoglobin (Bld) [Mass/Vol] 10.2 g/dL Low 11.9-15.1 [facility] Comment on above: Performed By: #### F JUVENTINO, CBC #### [facility] [address] [place] [address]. [place] [address] Community Health Navigator: Bin Mckeon MD MCH (RBC) [Entitic mass] 28.0 pg Normal 25.2-33.5 [facility] Comment on above: Performed By: #### F JUVENTINO, CBC #### [facility] [address] [place] [address]. [place] [address] Community Health Navigator: Bin Mckeon MD MCHC (RBC) [Mass/Vol] 31.7 g/dL Normal 28.4-34.8 [facility] Comment on above: Performed By: #### F JUVENTINO CBC #### [facility] [address] [place] [address]. [place] [address] Community Health Navigator: Bin Mckeon MD MCV (RBC) [Entitic vol] 88.5 fL Normal 82.6-102.9 [facility] Comment on above: Performed By: #### F JUVENTINO, CBC #### [facility] [place] [address] Community Health Navigator: Bin Mckeon MD NRBC Automated 0.0 per 100 WBC Normal 0.0 [facility] Comment on above: Performed By: #### F JUVENTINO, CBC #### [facility] [address] [facility] [place] [address] Community Health Navigator: Bin Mckeon MD Platelet mean volume (Bld) [Entitic vol] 9.5 fL Normal 8.1-13.5 [facility] Comment on above: Performed By: #### F JUVENTINO, CBC #### [facility] [address] [place] [address] Community Health Navigator: Bin Mckeon MD Platelets (Bld) [#/Vol] 177 10*3/uL Normal 138-453 [facility] Comment on above: Performed By: #### F JUVENTINO, CBC #### [facility] [address] [place] [address] Community Health Navigator: Bin Mckeon MD RBC (Bld) [#/Vol] 3.64 10*6/uL Low 3.95-5.11 [facility] Comment on above: Performed By: #### F JUVENTINO, CBC #### [facility] [address] [place] [address] Community Health Navigator: Bin Mckeon MD WBC (Bld) [#/Vol] 6.3 10*3/uL Normal 3.5-11.3 [facility] Comment on above: Performed By: #### F JUVENTINO, CBC #### [facility] [address] [place] [address] Community Health Navigator: Bin Mckeon MD Comp Metabolic Profon 2023 Albumin [Mass/Vol] 3.8 g/dL Normal 3.5-5.2 [facility] Comment on above: Performed By: #### B MP, LIVP, CBC #### [facility] [address] [place] [address] Community Health Navigator: Bin Mckeon MD #### LIPR, GLYHGB #### [facility] [address] [place] [address] Community Health Navigator: Willie Garcia MD Albumin/Glob Ratio 1.3 Normal 1.0-2.5 [facility] Comment on above: Performed By: #### B MP, LIVP, CBC #### [facility] [place] [address] Community Health Navigator: Bin Mckeon MD #### LIPR, GLYHGB #### [address] [address] Community Health Navigator: Willie Garcia MD Alkaline Phos 79 U/L Normal 35-104 [facility] Comment on above: Performed By: #### B MP, LIVP, CBC #### [facility] [address] [place] [address] Community Health Navigator: Bin Mckeon MD #### LIPR, GLYHGB #### [address] [address] Community Health Navigator: Willie Garcia MD ALT [Catalytic activity/Vol] 6 U/L Low 10-35 [facility] Comment on above: Performed By: #### B MP, LIVP, CBC #### [facility] [address] [place] [address] Community Health Navigator: Bin Mckeon MD #### LIPR, GLYHGB #### [address] [address] Community Health Navigator: Willie Garcia MD Anion gap [Moles/Vol] 8 mmol/L Low 9-16 [facility] Comment on above: Performed By: #### B MP, LIVP, CBC #### [facility] [address] [place] [address] Community Health Navigator: Bin Mckeon MD #### LIPR, GLYHGB #### [address] [address] Community Health Navigator: Willie Garcia MD AST [Catalytic activity/Vol] 19 U/L Normal 10-35 [facility] Comment on above: Performed By: #### B MP LIVP, CBC #### [facility] [address] [place] [address] Community Health Navigator: Bin Mckeon MD #### LIPR, GLYHGB #### [address] [address] Community Health Navigator: Willie Garcia MD Bilirubin [Mass/Vol] 0.3 mg/dL Normal 0.00-1.20 [facility] Comment on above: Performed By: #### B MP LIVP, CBC #### [facility] [address] [place] [address] Community Health Navigator: Bin Mckeon MD #### LIPZander, GLYHGB #### [address] [address] Community Health Navigator: Willie Garcia MD Calcium [Mass/Vol] 9.5 mg/dL Normal 8.8-10.2 [facility] Comment on above: Performed By: #### B MP, LIVP, CBC #### [facility] [address] [place] [address] Community Health Navigator: Bin Mckeon MD #### LIPR, GLYHGB #### [address] [address] Community Health Navigator: Willie Garcia MD Chloride [Moles/Vol] 107 mmol/L Normal 98-107 [facility] Comment on above: Performed By: #### B MP, LIVP, CBC #### [facility] [address] [place] [address] Community Health Navigator: Bin Mckeon MD #### LIPR, GLYHGB #### [address] [address] Community Health Navigator: Willie Garcia MD CO2 [Moles/Vol] 21 mmol/L Normal 20-31 [facility] Comment on above: Performed By: #### B MP, LIVP, CBC #### [facility] [address] [place] [address] Community Health Navigator: Bin Mckeon MD #### LIPR, GLYHGB #### [address] [address] Community Health Navigator: Willie Garcia MD Creatinine [Mass/Vol] 1.5 mg/dL High 0.50-0.90 [facility] Comment on above: Performed By: #### B MP, LIVP, CBC #### [facility] [address] [place] [address] Community Health Navigator: Bin Mckeon MD #### LIPR, GLYHGB #### [address] [address] Community Health Navigator: Willie Garcia MD GFR/1.73 sq M.predicted among non-blacks MDRD (S/P/Bld) [Vol rate/Area] 34 mL/min/{1.73_m2} Low >60 [facility] Comment on above: Result Comment: These results are not intended for use in patients <18 years of age. eGFR results are calculated without a race factor using the 2020 CKD-EPI equation. Careful clinical correlation is recommended, particularly when comparing to results calculated using previous equations. The CKD-EPI equation is less accurate in patients with extremes of muscle mass, extra-renal metabolism of creatine, excessive creatine ingestion, or following therapy that affects renal tubular secretion. Performed By: #### B MP, LIVP, CBC #### [facility] [address] [place] [address] Community Health Navigator: Bin Mckeon MD #### LIPR, GLYHGB #### [address] [address] Community Health Navigator: Willie Garcia MD Glucose [Mass/Vol] 84 mg/dL Normal 82-115 [facility] Comment on above: Performed By: #### B MP, LIVP, CBC #### [facility] [address] [place] [address] Community Health Navigator: Bin Mckeon MD #### LIPR, GLYHGB #### [address] [address] Community Health Navigator: Willie Garcia MD Potassium [Moles/Vol] 4.4 mmol/L Normal 3.7-5.3 [facility] Comment on above: Performed By: #### B MP, LIVP, CBC #### [facility] [address] [place] [address] Community Health Navigator: Bin Mckeon MD #### LIPR, GLYHGB #### [address] [address] Community Health Navigator: Willie Garcia MD Protein [Mass/Vol] 6.9 g/dL Normal 6.6-8.7 [facility] Comment on above: Performed By: #### B MP, LIVP, CBC #### [facility] [address] [place] [address] Community Health Navigator: Bin Mckeon MD #### LIPR, GLYHGB #### [address] [address] Community Health Navigator: Willie Garcia MD Sodium [Moles/Vol] 136 mmol/L Normal 136-145 [facility] Comment on above: Performed By: #### B MP, LIVP, CBC #### [facility] [address] [place] [address] Community Health Navigator: iBn Mckeon MD #### LIPR, GLYHGB #### [facility] [address] [place] [address] Community Health Navigator: Willie Garcia MD Urea nitrogen [Mass/Vol] 35 mg/dL High 8-23 [facility] Comment on above: Performed By: #### B MP, LIVP, CBC #### [facility] [address] [place] [address] Community Health Navigator: Bin Mckeon MD #### LIPR, GLYHGB #### [facility] [employer] [address] [place] [address] Community Health Navigator: Willie Garcia MD CBCon 08-14-2024 Erythrocyte distribution width (RBC) [Ratio] 14.7 % High 11.8 - 14.4 % [facility] Hematocrit (Bld) [Volume fraction] 32.5 % Low 36.3 - 47.1 % [facility] Hemoglobin (Bld) [Mass/Vol] 10.1 g/dL Low 11.9 - 15.1 g/dL [facility] Interpretation and review of laboratory results Abnormal [facility] MCH (RBC) [Entitic mass] 28.6 pg 25.2 - 33.5 pg [facility] MCHC (RBC) [Mass/Vol] 31.1 g/dL 28.4 - 34.8 g/dL [facility] MCV (RBC) [Entitic vol] 92.1 fL 82.6 - 102.9 fL [facility] Nucleated RBC/100 WBC (Bld) [Ratio] 0.0 % 0.0 per 100 WBC [facility] Platelet mean volume (Bld) [Entitic vol] 9.8 fL 8.1 - 13.5 fL [facility] Platelets (Bld) [#/Vol] 168 10*3/uL [facility] RBC (Bld) [#/Vol] 3.53 10*6/uL Low 3.95 - 5.1 1 m/uL [facility] WBC other (Bld) [#/Vol] 5.8 [facility] Erythrocyte distribution width (RBC) [Ratio] 14.7 % High 11.8-14.4 [facility] Comment on above: Performed By: #### B MP, LIVP, CBC #### [facility] [address] [place] [address] Community Health Navigator: Bin Mckeon MD #### LIPR, GLYHGB #### [address] [address] Community Health Navigator: Willie Garcia MD Hematocrit (Bld) [Volume fraction] 32.5 % Low 36.3-47.1 [facility] Comment on above: Performed By: #### B MP, LIVP, CBC #### [facility] [address] [place] [address] Community Health Navigator: Bin Mckeon MD #### LIPR, GLYHGB #### [address] [address] Community Health Navigator: Willie Garcia MD Hemoglobin (Bld) [Mass/Vol] 10.1 g/dL Low 11.9-15.1 [facility] Comment on above: Performed By: #### B MP, LIVP, CBC #### [facility] [address] [place] [address] Community Health Navigator: Bin Mckeon MD #### LIPR, GLYHGB #### [address] [address] Community Health Navigator: Willie Garcia MD MCH (RBC) [Entitic mass] 28.6 pg Normal 25.2-33.5 [facility] Comment on above: Performed By: #### B MP, LIVP, CBC #### [facility] [address] [place] [address], [place] [address] Community Health Navigator: Bin Mckeon MD #### LIPR, GLYHGB #### [address] [address] Community Health Navigator: Willie Garcia MD MCHC (RBC) [Mass/Vol] 31.1 g/dL Normal 28.4-34.8 [facility] Comment on above: Performed By: #### B MP, LIVP, CBC #### [facility] [address] [place] [address] Community Health Navigator: Bin Mckeon MD #### LIPZander, GLYHGB #### [address] [address] Community Health Navigator: Willie Garcia MD MCV (RBC) [Entitic vol] 92.1 fL Normal 82.6-102.9 [facility] Comment on above: Performed By: #### B MP, LIVP, CBC #### [facility] [address] [place] [address] Community Health Navigator: Bin Mckeon MD #### KIKE, GLYHGB #### [address] [address] Community Health Navigator: Willie Garcia MD NRBC Automated 0.0 per 100 WBC Normal 0.0 [facility] Comment on above: Performed By: #### B MP, LIVP, CBC #### [facility] [address] [place] [address] Community Health Navigator: Bin Mckeon MD #### LIPR, GLYHGB #### [address] [address] Community Health Navigator: Willie Garcia MD Platelet mean volume (Bld) [Entitic vol] 9.8 fL Normal 8.1-13.5 [facility] Comment on above: Performed By: #### B MP, LIVP, CBC #### [facility] [place] [address] Community Health Navigator: Bin Mckeon MD #### LIPR, GLYHGB #### [address] [address] Community Health Navigator: Willie Garcia MD Platelets (Bld) [#/Vol] 168 10*3/uL Normal 138-453 [facility] Comment on above: Performed By: #### B MP, LIVP, CBC #### [facility] [address] [place] [address] Community Health Navigator: Bin Mckeon MD #### LIPR, GLYHGB #### [address] [address] Community Health Navigator: Willie Garcia MD RBC (Bld) [#/Vol] 3.53 10*6/uL Low 3.95-5.11 [facility] Comment on above: Performed By: #### B MP, LIVP, CBC #### [facility] [address] [place] [address] Community Health Navigator: Bin Mckeon MD #### LIPR, GLYHGB #### [address] [address] Community Health Navigator: Willie Garcia MD WBC (Bld) [#/Vol] 5.8 10*3/uL Normal 3.5-11.3 [facility] Comment on above: Performed By: #### B MP, LIVP, CBC #### [facility] [address] [place] [address] Community Health Navigator: Bin Mckeon MD #### LIPR, GLYHGB #### [address] [address] Community Health Navigator: Willie Garcia MD Comp Metabolic Profon 2023 Albumin [Mass/Vol] 3.7 g/dL Normal 3.5-5.2 [facility] Comment on above: Performed By: #### B MP, LIVP, CBC #### [facility] [address] [place] [address] Community Health Navigator: Bin Mckeon MD #### LIPR, GLYHGB #### [address] [address] Community Health Navigator: Willie Garcia MD Albumin/Glob Ratio 1.2 Normal 1.0-2.5 [facility] Comment on above: Performed By: #### B MP, LIVP, CBC #### [facility] [address] [place] [address] Community Health Navigator: Bin Mckeon MD #### LIPR, GLYHGB #### [address] [address] Community Health Navigator: Willie Garcia MD Alkaline Phos 70 U/L Normal 35-104 [facility] Comment on above: Performed By: #### B MP, LIVP, CBC #### [facility] [address] [place] [address] Community Health Navigator: Bin Mckeon MD #### LIPR, GLYHGB #### [address] [address] Community Health Navigator: Willie Garcia MD ALT [Catalytic activity/Vol] 10 U/L Normal 10-35 [facility] Comment on above: Performed By: #### B MP, LIVP, CBC #### [facility] [address] [place] [address] Community Health Navigator: Bin Mckeon MD #### LIPR, GLYHGB #### [address] [address] Community Health Navigator: Willie Garcia MD Anion gap [Moles/Vol] 12 mmol/L Normal 9-16 [facility] Comment on above: Performed By: #### B MP, LIVP, CBC #### [facility] [address] [place] [address] Community Health Navigator: Bin Mckeon MD #### LIPR, GLYHGB #### [address] [address] Community Health Navigator: Willie Garcia MD AST [Catalytic activity/Vol] 23 U/L Normal 10-35 [facility] Comment on above: Performed By: #### B MP, LIVP, CBC #### [facility] [address] [place] [address] Community Health Navigator: Bin Mckeon MD #### LIPR, GLYHGB #### [address] [address] Community Health Navigator: Willie Garcia MD Bilirubin [Mass/Vol] 0.3 mg/dL Normal 0.00-1.20 [facility] Comment on above: Performed By: #### B MP, LIVP, CBC #### [facility] [address] [place] [address] Community Health Navigator: Bin Mckeon MD #### LIPR, GLYHGB #### [address] [address] Community Health Navigator: Willie Garcia MD Calcium [Mass/Vol] 9.3 mg/dL Normal 8.8-10.2 [facility] Comment on above: Performed By: #### B MP, LIVP, CBC #### [facility] [address] [place] [address] Community Health Navigator: Bin Mckeon MD #### LIPR, GLYHGB #### [address] [address] Community Health Navigator: Willie Garcia MD Chloride [Moles/Vol] 109 mmol/L High 98-107 [facility] Comment on above: Performed By: #### B MP LIVP, CBC #### [facility] [address] [place] [address] Community Health Navigator: Bin Mckeon MD #### LIPZander, GLYHGB #### [address] [address] Community Health Navigator: Willie Garcia MD CO2 [Moles/Vol] 19 mmol/L Low 20-31 [facility] Comment on above: Performed By: #### B MP, LIVP, CBC #### [facility] [address] [place] [address] Community Health Navigator: Bin Mckeon MD #### LIPR, GLYHGB #### [address] [address] Community Health Navigator: Willie Garcia MD Creatinine [Mass/Vol] 1.9 mg/dL High 0.50-0.90 [facility] Comment on above: Performed By: #### B MP, LIVP, CBC #### [facility] [address] [place] [address] Community Health Navigator: Bin Mckeon MD #### LIPR, GLYHGB #### [address] [address] Community Health Navigator: Willie Garcia MD GFR/1.73 sq M.predicted among non-blacks MDRD (S/P/Bld) [Vol rate/Area] 28 mL/min/{1.73_m2} Low >60 [facility] Comment on above: Result Comment: These results are not intended for use in patients <18 years of age. eGFR results are calculated without a race factor using the 2020 CKD-EPI equation. Careful clinical correlation is recommended, particularly when comparing to results calculated using previous equations. The CKD-EPI equation is less accurate in patients with extremes of muscle mass, extra-renal metabolism of creatine, excessive creatine ingestion, or following therapy that affects renal tubular secretion. Performed By: #### B MP, LIVP, CBC #### [facility] [address] [place] [address] Community Health Navigator: Bin Mckeon MD #### KIKE GLYHGB #### [address] [address] Community Health Navigator: Willie Garcia MD Glucose [Mass/Vol] 79 mg/dL Low 82-115 [facility] Comment on above: Performed By: #### B CLIF, LIVP, CBC #### [facility] [place] [address] Community Health Navigator: Bin Mckeon MD #### KIKE GLYHGB #### [address] [address] Community Health Navigator: Willie Garcia MD Potassium [Moles/Vol] 5.3 mmol/L Normal 3.7-5.3 [facility] Comment on above: Result Comment: Spec imen hemolysis has exceeded the interference as defined by Eldon. Value may be falsely increased. Suggest recollection if clinically indicated. Performed By: #### B CLIF LIVP, CBC #### [facility] [address] [place] [address] Community Health Navigator: Bin Mckeon MD #### LIPZander GLYHGB #### [address] [address] Community Health Navigator: Willie Garcia MD Protein [Mass/Vol] 6.6 g/dL Normal 6.6-8.7 [facility] Comment on above: Performed By: #### B MP, LIVP, CBC #### [facility] [place] [address] Community Health Navigator: Bin Mckeon MD #### LIPR, GLYHGB #### [address] [id number] Community Health Navigator: Willie Garcia MD Sodium [Moles/Vol] 140 mmol/L Normal 136-145 [facility] Comment on above: Performed By: #### B MP, LIVP, CBC #### [facility] [address] [place] [address] Community Health Navigator: Bin Mckeon MD #### LIPR, GLYHGB #### [address] [address] Community Health Navigator: Willie Garcia MD Urea nitrogen [Mass/Vol] 44 mg/dL High 8-23 [facility] Comment on above: Performed By: #### B MP, LIVP, CBC #### [facility] [address] [place] [address] Community Health Navigator: Bin Mckeon MD #### LIPR, GLYHGB #### [address] [address] Community Health Navigator: Willie Garcia MD Comprehensive Metabolic Pane [facility] 08-14-2024 Albumin [Mass/Vol] 3.7 g/dL 3.5 - 5.2 g/dL [facility] Albumin/Globulin [Mass ratio] 1.2 {ratio} 1.0 - 2.5 [facility] ALP [Catalytic activity/Vol] 70 U/L 35 - 104 U/L [facility] ALT [Catalytic activity/Vol] 10 U/L 10 - 35 U/L [facility] Anion gap [Moles/Vol] 12 mmol/L 9 - 16 mmol/L [facility] AST [Catalytic activity/Vol] 23 U/L 10 - 35 U/L [facility] Bilirubin [Mass/Vol] 0.3 mg/dL 0.00 - 1.20 mg/dL [facility] Calcium [Mass/Vol] 9.3 mg/dL 8.8 - 10. 2 mg/dL [facility] Chloride [Moles/Vol] 109 mmol/L High 98 - 10 7 mmol/L [facility] CO2 [Moles/Vol] 19 mmol/L Low 20 - 31 mmol/L [facility] Creatinine [Mass/Vol] 1.9 mg/dL High 0.50 - 0.90 mg/dL [facility] Est, Glom Filt Rate 28 Low - PINF [facility] Comment on above: These results are not intended for use in patients <18 years of age. eGFR results are calculated without a race factor using the 2020 CKD-EPI equation. Careful clinical correlation is recommended, particularly when comparing to results calculated using previous equations. The CKD-EPI equation is less accurate in patients with extremes of muscle mass, extra-renal metabolism of creatine, excessive creatine ingestion, or following therapy that affects renal tubular secretion. Glucose [Mass/Vol] 79 mg/dL Low 82 - 115 mg/dL [facility] Interpretation and review of laboratory results Abnormal [facility] Potassium [Moles/Vol] 5.3 mmol/L 3.7 - 5.3 mmol/L [facility] Comment on above: Specimen hemolysis h as exceeded the interference as defined by Eldon. Value may be falsely increased. Suggest recollection if clinically indicated. Protein [Mass/Vol] 6.6 g/dL 6.6 - 8.7 g/dL [facility] Sodium [Moles/Vol] 140 mmol/L 136 - 145 mmol/L [facility] Urea nitrogen [Mass/Vol] 44 mg/dL High 8 - 23 mg/dL [facility] Iron Binding Cap.on 08-14-20 24 % Fe Saturation 18 % Low 20-55 [facility] Comment on above: Performed By: #### B MP, LIVP, CBC #### [facility] [address] [place] [address] Community Health Navigator: Bin Mckeon MD #### LIPR, GLYHGB #### [address] [address] Community Health Navigator: Willie Garcia MD Iron [Mass/Vol] 38 ug/dL Normal 37-145 [facility] Comment on above: Performed By: #### B MP, LIVP, CBC #### [facility] [address] [place] [address] Community Health Navigator: Bin Mckeon MD #### LIPR, GLYHGB #### [address] [address] Community Health Navigator: Willie Garcia MD Total Fe Binding Cap 217 ug/dL Low 250-450 [facility] Comment on above: Performed By: #### B MP, LIVP, CBC #### [facility] [address] [place] [address] Community Health Navigator: Bin Mckeon MD #### LIPR, GLYHGB #### [address] [address] Community Health Navigator: Willie Garcia MD Unbound Fe Bind Cap 179 ug/dL Normal 112-347 [facility] Comment on above: Performed By: #### B MP, LIVP, CBC #### [facility] [place] [address] Community Health Navigator: Bin Mckeon MD #### LIPR, GLYHGB #### [address] [address] Community Health Navigator: Willie Garcia MD Iron and TIBCon 08-14-2024 Iron [Mass/Vol] 38 ug/dL 37 - 145 ug/dL [facility] Iron binding capacity [Mass/Vol] 217 ug/dL Low 250 - 450 ug/dL [facility] Iron saturation [Mass fraction] 18 % Low 20 - 55 % [facility] UIBC 179 ug/dL 112 - 347 ug/dL [facility] No Panel Informationon 08-14 Interpretation and review of laboratory results Abnormal [facility] Transferrinon 08-14-2024 Transferrin [Mass/Vol] 172 mg/dL Low 200 - 360 mg/dL [facility] Transferrin [Mass/Vol] 172 mg/dL Low 200-360 [facility] Comment on above: Performed By: #### B MP, LIVP, CBC #### [facility] [address] [place], [place] [id number] Community Health Navigator: Bin Mckeon MD #### LIPR, GLYHGB #### [facility] [address], [place] [id number] Community Health Navigator: Willie Garcia MD CBCon 08-12-2024 Erythrocyte distribution width (RBC) [Ratio] 13.2 % 11.8 - 14.4 % [facility] Hematocrit (Bld) [Volume fraction] 40.3 % 36.3 - 47.1 % [facility] Hemoglobin (Bld) [Mass/Vol] 13.1 g/dL 11.9 - 15.1 g/dL [facility] Interpretation and review of laboratory results Abnormal [facility] MCH (RBC) [Entitic mass] 33.3 pg 25.2 - 33.5 pg [facility] MCHC (RBC) [Mass/Vol] 32.5 g/dL 28.4 - 34.8 g/dL [facility] MCV (RBC) [Entitic vol] 102.5 fL 82.6 - 102.9 fL [facility] Nucleated RBC/100 WBC (Bld) [Ratio] 0.0 % 0.0 per 100 WBC [facility] Platelet mean volume (Bld) [Entitic vol] 10.9 fL 8.1 - 13.5 fL [facility] Platelets (Bld) [#/Vol] 192 10*3/uL [facility] RBC (Bld) [#/Vol] 3.93 10*6/uL Low 3.95 - 5.1 1 m/uL [facility] WBC other (Bld) [#/Vol] 4.6 [facility] Erythrocyte distribution width (RBC) [Ratio] 13.2 % Normal 11.8-14.4 [facility] Comment on above: Performed By: #### B MP, LIVP, CBC #### [facility] [address] [place] [address] Community Health Navigator: Bin Mckeon MD #### KIKE, GLYHGB #### [address] [address] Community Health Navigator: Willie Garcia MD Hematocrit (Bld) [Volume fraction] 40.3 % Normal 36.3-47.1 [facility] Comment on above: Performed By: #### B MP, LIVP, CBC #### [facility] [address] [place] [address] Community Health Navigator: Bin Mckeon MD #### LIPR, GLYHGB #### [address] [address] Community Health Navigator: Willie Garcia MD Hemoglobin (Bld) [Mass/Vol] 13.1 g/dL Normal 11.9-15.1 [facility] Comment on above: Performed By: #### B MP, LIVP, CBC #### [facility] [address] [place] [address] Community Health Navigator: Bin Mckeon MD #### LIPR, GLYHGB #### [address] [id number] Community Health Navigator: Willie Garcia MD MCH (RBC) [Entitic mass] 33.3 pg Normal 25.2-33.5 [facility] Comment on above: Performed By: #### B MP, LIVP, CBC #### [facility] [address] [place] [address] Community Health Navigator: Bin Mckeon MD #### LIPR, GLYHGB #### [address] [address] Community Health Navigator: Willie Garcia MD MCHC (RBC) [Mass/Vol] 32.5 g/dL Normal 28.4-34.8 [facility] Comment on above: Performed By: #### B MP, LIVP, CBC #### [facility] [address] [place] [address] Community Health Navigator: Bin Mckeon MD #### LIPR, GLYHGB #### [address] [address] Community Health Navigator: Willie Garcia MD MCV (RBC) [Entitic vol] 102.5 fL Normal 82.6-102.9 [facility] Comment on above: Performed By: #### B MP, LIVP, CBC #### [facility] [address] [place] [address] Community Health Navigator: Bin Mckeon MD #### LIPR, GLYHGB #### [address] [address] Community Health Navigator: Willie Garcia MD NRBC Automated 0.0 per 100 WBC Normal 0.0 [facility] Comment on above: Performed By: #### B MP, LIVP, CBC #### [facility] [address] [place] [address] Community Health Navigator: Bin Mckeon MD #### LIPR, GLYHGB #### [address] [address] Community Health Navigator: Willie Garcia MD Platelet mean volume (Bld) [Entitic vol] 10.9 fL Normal 8.1-13.5 [facility] Comment on above: Performed By: #### B MP, LIVP, CBC #### [facility] [place] [address] Community Health Navigator: Bin Mckeon MD #### LIPR, GLYHGB #### [address] [address] Community Health Navigator: Willie Garcia MD Platelets (Bld) [#/Vol] 192 10*3/uL Normal 138-453 [facility] Comment on above: Performed By: #### B MP, LIVP, CBC #### [facility] [address] [place] [address] Community Health Navigator: Bin Mckeon MD #### LIPR, GLYHGB #### [address] [address] Community Health Navigator: Willie Garcia MD RBC (Bld) [#/Vol] 3.93 10*6/uL Low 3.95-5.11 [facility] Comment on above: Performed By: #### B MP, LIVP, CBC #### [facility] [address] [place] [address] Community Health Navigator: Bin Mckeon MD #### LIPR, GLYHGB #### [address] [address] Community Health Navigator: Willie Garcia MD WBC (Bld) [#/Vol] 4.6 10*3/uL Normal 3.5-11.3 [facility] Comment on above: Performed By: #### B MP, LIVP, CBC #### [facility] [address] [place] [address] Community Health Navigator: Bin Mckeon MD #### LIPR, GLYHGB #### [address] [address] Community Health Navigator: Willie Garcia MD Iron Binding Cap.on 08-12-20 24 % Fe Saturation 45 % Normal 20-55 [facility] Comment on above: Performed By: #### B MP, LIVP, CBC #### [facility] [address] [place] [address] Community Health Navigator: Bin Mckeon MD #### LIPR, GLYHGB #### [address] [address] Community Health Navigator: Willie Garcia MD Iron [Mass/Vol] 86 ug/dL Normal 37-145 [facility] Comment on above: Performed By: #### B MP, LIVP, CBC #### [facility] [address] [place] [address] Community Health Navigator: Bin Mckeon MD #### LIPR, GLYHGB #### [address] [address] Community Health Navigator: Willie Garcia MD Total Fe Binding Cap 190 ug/dL Low 250-450 [facility] Comment on above: Performed By: #### B MP, LIVP, CBC #### [facility] [place] [address] Community Health Navigator: Bin Mckeon MD #### LIPR, GLYHGB #### [address] [address] Community Health Navigator: Willie Garcia MD Unbound Fe Bind Cap 104 ug/dL Low 112-347 [facility] Comment on above: Performed By: #### B MP, LIVP, CBC #### [facility] [place] [address] Community Health Navigator: Bin Mckeon MD #### LIPR, GLYHGB #### [id number] [place] [address] Community Health Navigator: Willie Garcia MD Iron and TIBCon 08-12-2024 Interpretation and review of laboratory results Abnormal [facility] Iron [Mass/Vol] 86 ug/dL 37 - 145 ug/dL [facility] Iron binding capacity [Mass/Vol] 190 ug/dL Low 250 - 450 ug/dL [facility] Iron saturation [Mass fraction] 45 % 20 - 55 % [facility] UIBC 104 ug/dL Low 112 - 347 ug/dL [facility] Comp Metabolic Profon 2023 Albumin [Mass/Vol] 3.8 g/dL Normal 3.5-5.2 [facility] Comment on above: Performed By: #### C P #### [facility] [address] [place] [id number] Community Health Navigator: Bin Mckeon MD Alkaline Phos 84 U/L Normal 35-104 [facility] Comment on above: Performed By: #### C P #### [facility] [address] [place] [address] Community Health Navigator: Bin Mckeon MD ALT [Catalytic activity/Vol] 9 U/L Normal 5-33 [facility] Comment on above: Performed By: #### C P #### [facility] [address] [place] [phone] Community Health Navigator: Bin Mckeon MD Anion gap [Moles/Vol] 11 mmol/L Normal 9-17 [facility] Comment on above: Performed By: #### C P #### [facility] [address] [place] [address] Community Health Navigator: Bin Mckeon MD AST [Catalytic activity/Vol] 16 U/L Normal <32 [facility] Comment on above: Performed By: #### C P #### [facility] [address] [place] [address] Community Health Navigator: Bin Mckeon MD Bilirubin [Mass/Vol] 0.4 mg/dL Normal 0.3-1.2 [facility] Comment on above: Performed By: #### C P #### [facility] [address] [place] [address] Community Health Navigator: Bin Mckeon MD BUN/CRE Ratio 22 High 9-20 [facility] Comment on above: Performed By: #### C P #### [facility] [address] [place] [address] Community Health Navigator: Bin Mckeon MD Calcium [Mass/Vol] 9.5 mg/dL Normal 8.6-10.4 [facility] Comment on above: Performed By: #### C P #### [facility] [place] [address] Community Health Navigator: Bin Mckeon MD Chloride [Moles/Vol] 110 mmol/L High 98-107 [facility] Comment on above: Performed By: #### C P #### [facility] [address] [place] [address] Community Health Navigator: Bin Mckeon MD CO2 [Moles/Vol] 22 mmol/L Normal 20-31 [facility] Comment on above: Performed By: #### C P #### [facility] [place] [address] Community Health Navigator: Bin Mckeon MD Creatinine [Mass/Vol] 1.3 mg/dL High 0.5-0.9 [facility] Comment on above: Performed By: #### C P #### [facility] [address] [facility] [place] [address] Community Health Navigator: Bin Mckeon MD GFR/1.73 sq M.predicted among non-blacks MDRD (S/P/Bld) [Vol rate/Area] 41 mL/min/{1.73_m2} Low >60 [facility] Comment on above: Result Comment: These results are not intended for use in patients <18 years of age. eGFR results are calculated without a race factor using the 2020 CKD-EPI equation. Careful clinical correlation is recommended, particularly when comparing to results calculated using previous equations. The CKD-EPI equation is less accurate in patients with extremes of muscle mass, extra-renal metabolism of creatine, excessive creatine ingestion, or following therapy that affects renal tubular secretion. Performed By: #### C P #### [facility] [facility] [place] [address] Community Health Navigator: Bin Mckeon MD Glucose [Mass/Vol] 80 mg/dL Normal 70-99 [facility] Comment on above: Performed By: #### C P #### [facility] [address] [place] [address]. [place] [address] Community Health Navigator: Bin Mckeon MD Potassium [Moles/Vol] 4.9 mmol/L Normal 3.7-5.3 [facility] Comment on above: Performed By: #### C P #### [facility] [address] [place] [address]. [place] [address] Community Health Navigator: Bin Mckeon MD Protein [Mass/Vol] 7.3 g/dL Normal 6.4-8.3 [facility] Comment on above: Performed By: #### C P #### [facility] [address] [place] [address] Community Health Navigator: Bin Mckeon MD Sodium [Moles/Vol] 143 mmol/L Normal 135-144 [facility] Comment on above: Performed By: #### C P #### [facility] [address] [place] [address] Community Health Navigator: Bin Mckeon MD Urea nitrogen [Mass/Vol] 29 mg/dL High 8-23 [facility] Comment on above: Performed By: #### C P #### [facility] [address] [place] [address] Community Health Navigator: Bin Mckeon MD Basic Metab, Fastingon 07-15 Anion gap [Moles/Vol] 10 mmol/L Normal 9-17 [facility] Comment on above: Performed By: #### T SH, BMPF, CBC, FERI, FT4 #### [facility] [address] [place] [address] Community Health Navigator: Bin Mckeon MD BUN/CRE Ratio 23 High 9-20 [facility] Comment on above: Performed By: #### T SH, BMPF, CBC, FERI, FT4 #### [facility] [address] [place] [address] Community Health Navigator: Bin Mckeon MD Calcium [Mass/Vol] 9.3 mg/dL Normal 8.6-10.4 [facility] Comment on above: Performed By: #### T SH, BMPF, CBC, FERI, FT4 #### [facility] [address] [place] [address] Community Health Navigator: Bin Mckeon MD Chloride [Moles/Vol] 109 mmol/L High 98-107 [facility] Comment on above: Performed By: #### T SH, BMPF, CBC, FERI, FT4 #### [facility] [address] [facility] [place] [address] Community Health Navigator: Bin Mckeon MD CO2 [Moles/Vol] 22 mmol/L Normal 20-31 [facility] Comment on above: Performed By: #### T SH, BMPF, CBC, FERI, FT4 #### [facility] [address] [facility] [place] [address] Community Health Navigator: Bin Mckeon MD Creatinine [Mass/Vol] 1.8 mg/dL High 0.5-0.9 [facility] Comment on above: Performed By: #### T SH, BMPF, CBC, FERI, FT4 #### [facility] [address] [place] [address] Community Health Navigator: Bin Mckeon MD GFR/1.73 sq M.predicted among non-blacks MDRD (S/P/Bld) [Vol rate/Area] 27 mL/min/{1.73_m2} Low >60 [facility] Comment on above: Result Comment: These results are not intended for use in patients <18 years of age. eGFR results are calculated without a race factor using the 2020 CKD-EPI equation. Careful clinical correlation is recommended, particularly when comparing to results calculated using previous equations. The CKD-EPI equation is less accurate in patients with extremes of muscle mass, extra-renal metabolism of creatine, excessive creatine ingestion, or following therapy that affects renal tubular secretion. Performed By: #### T SH, BMPF, CBC, FERI, FT4 #### [facility] [address] [facility] [place] [address] Community Health Navigator: Bin Mckeon MD Glucose [Mass/Vol] 83 mg/dL Normal 70-99 [facility] Comment on above: Performed By: #### T SH, BMPF, CBC, FERI, FT4 #### [facility] [address] [place] [address] Community Health Navigator: Bin Mckeon MD Potassium [Moles/Vol] 5.0 mmol/L Normal 3.7-5.3 [facility] Comment on above: Performed By: #### T SH, BMPF, CBC, FERI, FT4 #### [facility] [address] [place] [address] Community Health Navigator: Bin Mckeon MD Sodium [Moles/Vol] 141 mmol/L Normal 135-144 [facility] Comment on above: Performed By: #### T SH, BMPF, CBC, FERI, FT4 #### [facility] [address] [place] [address] Community Health Navigator: Bin Mckeon MD Urea nitrogen [Mass/Vol] 42 mg/dL High 8-23 [facility] Comment on above: Performed By: #### T SH, BMPF, CBC, FERI, FT4 #### [facility] [address] [place] [address] Community Health Navigator: Bin Mckeon MD Basic Metabolic Panel, [facility] 07-15-2024 Anion gap [Moles/Vol] 10 mmol/L 9 - 17 mmol/L [facility] Calcium [Mass/Vol] 9.3 mg/dL 8.6 - 10. 4 mg/dL [facility] Chloride [Moles/Vol] 109 mmol/L High 98 - 10 7 mmol/L [facility] CO2 [Moles/Vol] 22 mmol/L 20 - 31 mmol/L [facility] Creatinine [Mass/Vol] 1.8 mg/dL High 0.5 - 0.9 mg/dL [facility] Est, Glom Filt Rate 27 Low - PINF [facility] Comment on above: These results are not intended for use in patients <18 years of age. eGFR results are calculated without a race factor using the 2020 CKD-EPI equation. Careful clinical correlation is recommended, particularly when comparing to results calculated using previous equations. The CKD-EPI equation is less accurate in patients with extremes of muscle mass, extra-renal metabolism of creatine, excessive creatine ingestion, or following therapy that affects renal tubular secretion. Glucose post fast [Mass/Vol] 83 mg/dL 70 - 99 mg/dL [facility] Interpretation and review of laboratory results Abnormal [facility] Potassium [Moles/Vol] 5.0 mmol/L 3.7 - 5.3 mmol/L [facility] Sodium [Moles/Vol] 141 mmol/L 135 - 144 mmol/L [facility] Urea nitrogen [Mass/Vol] 42 mg/dL High 8 - 23 mg/dL [facility] Urea nitrogen/Creatinine [Mass ratio] 23 mg/mg High 9 - 20 [facility] CBCon 07-15-2024 Erythrocyte distribution width (RBC) [Ratio] 15.9 % High 11.8 - 14.4 % [facility] Hematocrit (Bld) [Volume fraction] 35.5 % Low 36.3 - 47.1 % [facility] Hemoglobin (Bld) [Mass/Vol] 10.7 g/dL Low 11.9 - 15.1 g/dL [facility] Interpretation and review of laboratory results Abnormal [facility] MCH (RBC) [Entitic mass] 27.9 pg 25.2 - 33.5 pg [facility] MCHC (RBC) [Mass/Vol] 30.1 g/dL 28.4 - 34.8 g/dL [facility] MCV (RBC) [Entitic vol] 92.4 fL 82.6 - 102.9 fL [facility] Nucleated RBC/100 WBC (Bld) [Ratio] 0.0 % 0.0 per 100 WBC [facility] Platelet mean volume (Bld) [Entitic vol] 9.6 fL 8.1 - 13.5 fL [facility] Platelets (Bld) [#/Vol] 145 10*3/uL [facility] RBC (Bld) [#/Vol] 3.84 10*6/uL Low 3.95 - 5.1 1 m/uL [facility] WBC other (Bld) [#/Vol] 4.9 [facility] Erythrocyte distribution width (RBC) [Ratio] 15.9 % High 11.8-14.4 [facility] Comment on above: Performed By: #### T SH, BMPF, CBC, FERI, FT4 #### [facility] [address] [facility] [place] [address] Community Health Navigator: Bin Mckeon MD Hematocrit (Bld) [Volume fraction] 35.5 % Low 36.3-47.1 [facility] Comment on above: Performed By: #### T SH, BMPF, CBC, FERI, FT4 #### [facility] [address] [place] [address] Community Health Navigator: Bin Mckeon MD Hemoglobin (Bld) [Mass/Vol] 10.7 g/dL Low 11.9-15.1 [facility] Comment on above: Performed By: #### T SH, BMPF, CBC, FERI, FT4 #### [facility] [address] [place] [address] Community Health Navigator: Bin Mckeon MD MCH (RBC) [Entitic mass] 27.9 pg Normal 25.2-33.5 [facility] Comment on above: Performed By: #### T SH, BMPF, CBC, FERI, FT4 #### [facility] [address] [facility] [place] [address] Community Health Navigator: Bin Mckeon MD MCHC (RBC) [Mass/Vol] 30.1 g/dL Normal 28.4-34.8 [facility] Comment on above: Performed By: #### T SH, BMPF, CBC, FERI, FT4 #### [facility] [address] [place] [address] Community Health Navigator: Bin Mckeon MD MCV (RBC) [Entitic vol] 92.4 fL Normal 82.6-102.9 [facility] Comment on above: Performed By: #### T SH, BMPF, CBC, FERI, FT4 #### [facility] [address] [place] [address] Community Health Navigator: Bin Mckeon MD NRBC Automated 0.0 per 100 WBC Normal 0.0 [facility] Comment on above: Performed By: #### T SH, BMPF, CBC, FERI, FT4 #### [facility] [facility] [place] [address] Community Health Navigator: Bin Mckeon MD Platelet mean volume (Bld) [Entitic vol] 9.6 fL Normal 8.1-13.5 [facility] Comment on above: Performed By: #### T SH, BMPF, CBC, FERI, FT4 #### [facility] [facility] [place] [address] Community Health Navigator: Bin Mckeon MD Platelets (Bld) [#/Vol] 145 10*3/uL Normal 138-453 [facility] Comment on above: Performed By: #### T SH, BMPF, CBC, FERI, FT4 #### [facility] [facility] [place] [address] Community Health Navigator: Bin Mckeon MD RBC (Bld) [#/Vol] 3.84 10*6/uL Low 3.95-5.11 [facility] Comment on above: Performed By: #### T SH, BMPF, CBC, FERI, FT4 #### [facility] [place] [address] Community Health Navigator: Bin Mckeon MD WBC (Bld) [#/Vol] 4.9 10*3/uL Normal 3.5-11.3 [facility] Comment on above: Performed By: #### T SH, BMPF, CBC, FERI, FT4 #### [facility] [address] [facility] [place] [address] Community Health Navigator: Bin Mckeon MD Ferritinon 07-15-2024 Ferritin [Mass/Vol] 156 ng/mL High 13 - 150 ng/mL [facility] Ferritin [Mass/Vol] 156 ng/mL High 13-150 [facility] Comment on above: Performed By: #### F JUVENTINO, CBC #### [facility] [place] [address] Community Health Navigator: Bin Mckeon MD No Panel Informationon 07-15 Interpretation and review of laboratory results Abnormal [facility] T4, Freeon 07-15-2024 Free T4 [Mass/Vol] 0.9 ng/dL 0.9 - 1.7 ng/dL [facility] TSHon 07-15-2024 TSH Qn 5.97 m[IU]/L High [facility] Thyroid Stim. Horm.on 2023 Thyroid Stim. Horm. 5.97 uIU/mL High 0.30-5.00 [facility] Comment on above: Performed By: #### F JUVENTINO, CBC #### [facility] [address] [place] [address] Community Health Navigator: Bin Mckeon MD Thyroxine, Freeon 07-15-2024 Thyroxine, Free 0.9 ng/dL Normal 0.9-1.7 [facility] Comment on above: Performed By: #### F JUVENTINO, CBC #### [facility] [address] [facility] [place] [address] Community Health Navigator: Bin Mckeon MD CBCon 05-15-2024 Erythrocyte distribution width (RBC) [Ratio] 13.7 % Normal 11.8-14.4 [facility] Comment on above: Performed By: #### B MP LIVP, CBC #### [facility] [address] [place] [address] Community Health Navigator: Bin Mckeon MD #### LIPZander GLYHGB #### [address] [address] Community Health Navigator: Willie Garcia MD Hematocrit (Bld) [Volume fraction] 34.1 % Low 36.3-47.1 [facility] Comment on above: Performed By: #### B CLIF LIVP, CBC #### [facility] [address] [place] [address] Community Health Navigator: Bin Mckeon MD #### KIKE GLYHGB #### [address] [address] Community Health Navigator: Willie Garcia MD Hemoglobin (Bld) [Mass/Vol] 10.4 g/dL Low 11.9-15.1 [facility] Comment on above: Performed By: #### B CLIF LIVP, CBC #### [facility] [address] [place] [address] Community Health Navigator: Bin Mckeon MD #### LIPR, GLYHGB #### [address] [address] Community Health Navigator: Willie Garcia MD MCH (RBC) [Entitic mass] 27.4 pg Normal 25.2-33.5 [facility] Comment on above: Performed By: #### B MP LIVP, CBC #### [facility] [address] [place] [address] Community Health Navigator: Bin Mckeon MD #### LIPR, GLYHGB #### [address] [address] Community Health Navigator: Willie Garcia MD MCHC (RBC) [Mass/Vol] 30.5 g/dL Normal 28.4-34.8 [facility] Comment on above: Performed By: #### B MP, LIVP, CBC #### [facility] [address] [place] [address] Community Health Navigator: Bin Mckeon MD #### LIPR, GLYHGB #### [address] [address] Community Health Navigator: Willie Garcia MD MCV (RBC) [Entitic vol] 90.0 fL Normal 82.6-102.9 [facility] Comment on above: Performed By: #### B MP, LIVP, CBC #### [facility] [address] [place] [address] Community Health Navigator: Bin Mckeon MD #### LIPR, GLYHGB #### [address] [address] Community Health Navigator: Willie Garcia MD NRBC Automated 0.0 per 100 WBC Normal 0.0 [facility] Comment on above: Performed By: #### B MP, LIVP, CBC #### [facility] [address] [place] [address] Community Health Navigator: Bin Mckeon MD #### LIPR, GLYHGB #### [address] [address] Community Health Navigator: Willie Garcia MD Platelet mean volume (Bld) [Entitic vol] 9.2 fL Normal 8.1-13.5 [facility] Comment on above: Performed By: #### B MP, LIVP, CBC #### [facility] [address] [place] [address] Community Health Navigator: Bin Mckeon MD #### LIPR, GLYHGB #### [address] [address] Community Health Navigator: Willie Garcia MD Platelets (Bld) [#/Vol] 223 10*3/uL Normal 138-453 [facility] Comment on above: Performed By: #### B MP, LIVP, CBC #### [facility] [place] [address] Community Health Navigator: Bin Mckeon MD #### LIPR, GLYHGB #### [address] [address] Community Health Navigator: Willie Garcia MD RBC (Bld) [#/Vol] 3.79 10*6/uL Low 3.95-5.11 [facility] Comment on above: Performed By: #### B MP, LIVP, CBC #### [facility] [address] [place] [address] Community Health Navigator: Bin Mckeon MD #### LIPR, GLYHGB #### [address] [address] Community Health Navigator: Willie Garcia MD WBC (Bld) [#/Vol] 5.9 10*3/uL Normal 3.5-11.3 [facility] Comment on above: Performed By: #### B MP, LIVP, CBC #### [facility] [place] [address] Community Health Navigator: Bin Mckeon MD #### LIPR, GLYHGB #### [address] [address] Community Health Navigator: Willie Garcia MD Iron Binding Cap.on 05-15-20 24 % Fe Saturation 15 % Low 20-55 [facility] Comment on above: Performed By: #### B MP LIVP, CBC #### [facility] [address] [place] [address] Community Health Navigator: Bin Mckeon MD #### LIPR, GLYHGB #### [address] [address] Community Health Navigator: Willie Garcia MD Iron [Mass/Vol] 33 ug/dL Low 37-145 [facility] Comment on above: Performed By: #### B MP LIVP, CBC #### [facility] [address] [place] [address] Community Health Navigator: Bin Mckeon MD #### KIKE GLYHGB #### [address] [address] Community Health Navigator: Willie Garcia MD Total Fe Binding Cap 220 ug/dL Low 250-450 [facility] Comment on above: Performed By: #### B MP LIVP, CBC #### [facility] [address] [place] [address] Community Health Navigator: Bin Mckeon MD #### KIKE GLYHGB #### [address] [address] Community Health Navigator: Willie Garcia MD Unbound Fe Bind Cap 187 ug/dL Normal 112-347 [facility] Comment on above: Performed By: #### B MP, LIVP, CBC #### [facility] [address] [place] [address] Community Health Navigator: Bin Mckeon MD #### LIPR GLYHGB #### [address] [address] Community Health Navigator: Willie Garcia MD Basic Metabolic Profon 05-13 Anion gap [Moles/Vol] 12 mmol/L Normal 9-17 [facility] Comment on above: Performed By: #### F JUVENTINO, CBC #### [facility] [address] [place] [address] Community Health Navigator: Bin Mckeon MD BUN/CRE Ratio 22 High 9-20 [facility] Comment on above: Performed By: #### F JUVENTINO, CBC #### [facility] [address] [place] [address] Community Health Navigator: Bin Mckeon MD Calcium [Mass/Vol] 9.1 mg/dL Normal 8.6-10.4 [facility] Comment on above: Performed By: #### F JUVENTINO, CBC #### [facility] [address] [place] [address] Community Health Navigator: Bin Mckeon MD Chloride [Moles/Vol] 107 mmol/L Normal 98-107 [facility] Comment on above: Performed By: #### F JUVENTINO, CBC #### [facility] [address] [place] [address] Community Health Navigator: Bin Mckeon MD CO2 [Moles/Vol] 19 mmol/L Low 20-31 [facility] Comment on above: Performed By: #### F JUVENTINO, CBC #### [facility] [address] [place] [address] Community Health Navigator: Bin Mckeon MD Creatinine [Mass/Vol] 1.3 mg/dL High 0.5-0.9 [facility] Comment on above: Performed By: #### F JUVENTINO, CBC #### [facility] [address] [place], [place] [address] Community Health Navigator: Bin Mckeon MD GFR/1.73 sq M.predicted among non-blacks MDRD (S/P/Bld) [Vol rate/Area] 41 mL/min/{1.73_m2} Low >60 [facility] Comment on above: Result Comment: These results are not intended for use in patients <18 years of age. eGFR results are calculated without a race factor using the 2020 CKD-EPI equation. Careful clinical correlation is recommended, particularly when comparing to results calculated using previous equations. The CKD-EPI equation is less accurate in patients with extremes of muscle mass, extra-renal metabolism of creatine, excessive creatine ingestion, or following therapy that affects renal tubular secretion. Performed By: #### F JUVENTINO, CBC #### [facility] [address] [place] [address] Community Health Navigator: Bin Mckeon MD Glucose [Mass/Vol] 71 mg/dL Normal 70-99 [facility] Comment on above: Performed By: #### F JUVENTINO, CBC #### [facility] [address] [facility] [place] [address] Community Health Navigator: Bin Mckeon MD Potassium [Moles/Vol] 5.2 mmol/L Normal 3.7-5.3 [facility] Comment on above: Performed By: #### F JUVENTINO, CBC #### [facility] [address] [facility] [place] [address] Community Health Navigator: Bin Mckeon MD Sodium [Moles/Vol] 138 mmol/L Normal 135-144 [facility] Comment on above: Performed By: #### F JUVENTINO, CBC #### [facility] [place] [address] Community Health Navigator: Bin Mckeon MD Urea nitrogen [Mass/Vol] 28 mg/dL High 8-23 [facility] Comment on above: Performed By: #### F JUVENTINO, CBC #### [facility] [address] [facility] [place] [address] Community Health Navigator: Bin Mckeon MD CBCon 05-13-2024 Erythrocyte distribution width (RBC) [Ratio] 13.5 % Normal 11.8-14.4 [facility] Comment on above: Performed By: #### F JUVENTINO, CBC #### [facility] [place] [address] Community Health Navigator: Bin Mckeon MD Hematocrit (Bld) [Volume fraction] 33.6 % Low 36.3-47.1 [facility] Comment on above: Performed By: #### F JUVENTINO, CBC #### [facility] [place] [address] Community Health Navigator: Bin Mckeon MD Hemoglobin (Bld) [Mass/Vol] 9.7 g/dL Low 11.9-15.1 [facility] Comment on above: Performed By: #### F JUVENTINO, CBC #### [facility] [address] [place] [address]. [place] [address] Community Health Navigator: Bin Mckeon MD MCH (RBC) [Entitic mass] 26.8 pg Normal 25.2-33.5 [facility] Comment on above: Performed By: #### F JUVENTINO, CBC #### [facility] [address] [place] [address]. [place] [address] Community Health Navigator: Bin Mckeon MD MCHC (RBC) [Mass/Vol] 28.9 g/dL Normal 28.4-34.8 [facility] Comment on above: Performed By: #### F JUVENTINO, CBC #### [facility] [address] [facility] [place] [address] Community Health Navigator: Bin Mckeon MD MCV (RBC) [Entitic vol] 92.8 fL Normal 82.6-102.9 [facility] Comment on above: Performed By: #### F JUVENTINO, CBC #### [facility] [address] [place] [address] Community Health Navigator: Bin Mckeon MD NRBC Automated 0.0 per 100 WBC Normal 0.0 [facility] Comment on above: Performed By: #### F JUVENTINO, CBC #### [facility] [address] [place] [address] Community Health Navigator: Bin Mckeon MD Platelet mean volume (Bld) [Entitic vol] 9.4 fL Normal 8.1-13.5 [facility] Comment on above: Performed By: #### F JUVENTINO, CBC #### [facility] [address] [place], [place] [address]ia [facility] [place] [address] Community Health Navigator: Bin Mckeon MD Platelets (Bld) [#/Vol] 211 10*3/uL Normal 138-453 [facility] Comment on above: Performed By: #### F JUVENTINO, CBC #### [facility] [facility] [place] [address] Community Health Navigator: Bin Mckeon MD RBC (Bld) [#/Vol] 3.62 10*6/uL Low 3.95-5.11 [facility] Comment on above: Performed By: #### F JUVENTINO, CBC #### [facility] [address] [facility] [place] [address] Community Health Navigator: Bin Mckeon MD WBC (Bld) [#/Vol] 5.8 10*3/uL Normal 3.5-11.3 [facility] Comment on above: Performed By: #### F JUVENTINO, CBC #### [facility] [place] [address] Community Health Navigator: iBn Mckeon MD Cult,Urineon 05-11-2024 Cult,Urine Specimen Description .URINE Special Requests ROOM 216 Culture ESCHERICHIA COLI >100,000 CFU/ML Report Status FINAL 05/11/2024 SUSCEPTIBILITY Organism ESCHERICHIA COLI Method JONATHAN Ampicillin >=32 RESISTANT Cefazolin 16 INTERMEDIATE Cefazolin sensitivity results can be used to predict the effectiveness of oral cephalosporins (eg. Cephalexin) in uncomplicated Urinary Tract Infections due to E. coli, K. pneumoniae, and P. mirabilis Ceftriaxone <=0.25 SUSCEPTIBLE Gentamicin <=1 SUSCEPTIBLE Levofloxacin 0.5 SUSCEPTIBLE Nitrofurantoin <=16 SUSCEPTIBLE Piperacillin/Tazobact am <=4 SUSCEPTIBLE Tobramycin <=1 SUSCEPTIBLE Trimethoprim/Sulfa <=20 SUSCEPTIBLE ESBL NEGATIVE Susceptible [facility] Comment on above: Performed By: #### F JUVENTINO, CBC #### [facility] [address] [place] [address] Community Health Navigator: Bin Mckeon MD Urinalysis, Routineon 2023 Bilirubin, SemiQt,Ur Negative Normal NEG [facility] Comment on above: Performed By: #### B MP, LIVP, CBC #### [facility] [address] [place] [address] Community Health Navigator: Bin Mckeon MD #### LIPR, GLYHGB #### [address] [address] Community Health Navigator: Willie Garcia MD Blood, Urine Negative Normal NEG [facility] Comment on above: Performed By: #### B MP, LIVP, CBC #### [facility] [address] [place] [address] Community Health Navigator: Bin Mckeon MD #### LIPR, GLYHGB #### [address] [address] Community Health Navigator: Willie Garcia MD Clarity (U) SLIGHTLY CLOUDY Abnormal CLEAR [facility] Comment on above: Performed By: #### B MP, LIVP, CBC #### [facility] [address] [place] [address] Community Health Navigator: Bin Mckeon MD #### LIPR, GLYHGB #### [address] [address] Community Health Navigator: Willie Garcia MD Color (U) Yellow Normal YEL [facility] Comment on above: Performed By: #### B MP, LIVP, CBC #### [facility] [address] [place] [address] Community Health Navigator: Bin Mckeon MD #### LIPR, GLYHGB #### [address] [address] Community Health Navigator: Willie Garcia MD Glucose Ql (U) Negative Normal NEG [facility] Comment on above: Performed By: #### B MP, LIVP, CBC #### [facility] [place] [address] Community Health Navigator: Bin Mckeon MD #### LIPR, GLYHGB #### [address] [address] Community Health Navigator: Willie Garcia MD Ketones Ql (U) Negative Normal NEG [facility] Comment on above: Performed By: #### B MP, LIVP, CBC #### [facility] [address] [place] [address] Community Health Navigator: Bin Mckeon MD #### LIPR, GLYHGB #### [address] [address] Community Health Navigator: Willie Garcia MD Leukocyte esterase Test strip Ql (U) SMALL Abnormal NEG [facility] Comment on above: Performed By: #### B MP, LIVP, CBC #### [facility] [place] [address] Community Health Navigator: Bin Mckeon MD #### LIPR, GLYHGB #### [address] [address] Community Health Navigator: Willie Garcia MD Nitrite,Ur Positive Abnormal NEG [facility] Comment on above: Performed By: #### B MP, LIVP, CBC #### [facility] [address] [place] [address] Community Health Navigator: Bin Mckeon MD #### LIPR, GLYHGB #### [address] [address] Community Health Navigator: Willie Garcia MD PH,Ur 5.5 Normal 5.0-8.0 [facility] Comment on above: Performed By: #### B MP, LIVP, CBC #### [facility] [address] [place] [address] Community Health Navigator: Bin Mckeon MD #### LIPR, GLYHGB #### [address] [address] Community Health Navigator: Willie Garcia MD Protein Ql (U) TRACE Abnormal NEG [facility] Comment on above: Performed By: #### B MP, LIVP, CBC #### [facility] [address] [place] [address] Community Health Navigator: Bin Mckeon MD #### LIPR, GLYHGB #### [address] [address] Community Health Navigator: Willie Garcia MD Spec. [place],Ur 1.020 Normal 1.005-1.030 [facility] Comment on above: Performed By: #### B MP, LIVP, CBC #### [facility] [place] [address] Community Health Navigator: Bin Mckeon MD #### LIPR, GLYHGB #### [address] [address] Community Health Navigator: Willie Garcia MD Urobilinogen,Ur Normal Normal 0.0-1.0 [facility] Comment on above: Performed By: #### B MP, LIVP, CBC #### [facility] [address] [place] [address] Community Health Navigator: Bin Mckeon MD #### LIPR, GLYHGB #### [address] [address] Community Health Navigator: Willie Garcia MD Urinalysis,Microon 4 Epithelial cells LM Ql (Urine sed) 5 TO 10 Normal 0-5 [facility] Comment on above: Performed By: #### B MP, LIVP, CBC #### [facility] [address] [place] [address] Community Health Navigator: Bin Mckeon MD #### LIPR, GLYHGB #### [address] [address] Community Health Navigator: Willie Garcia MD Mucus Strands 1+ Abnormal NONE [facility] Comment on above: Performed By: #### B MP, LIVP, CBC #### [facility] [address] [place] [address] Community Health Navigator: Bin Mckeon MD #### LIPR, GLYHGB #### [address] [address] Community Health Navigator: Willie Garcia MD Urine RBC's 0 TO 2 Normal 0-2 [facility] Comment on above: Performed By: #### B MP, LIVP, CBC #### [facility] [address] [place] [address] Community Health Navigator: Bin Mckeon MD #### LIPR, GLYHGB #### [facility] [address] [place], [place] [address] Community Health Navigator: Willie Garcia MD Urine WBC's 10 TO 20 Normal 0-5 [facility] Comment on above: Performed By: #### B MP, LIVP, CBC #### [facility] [address] [place] [address] Community Health Navigator: Bin Mckeon MD #### LIPR, GLYHGB #### [facility] [address] [place] [address] Community Health Navigator: Willie Garcia MD [facility] Erythrocyte distribution width (RBC) [Ratio] 14.6 % High 11.8 - 14.4 % [facility] Hematocrit (Bld) [Volume fraction] 38.8 % 36.3 - 47.1 % [facility] Hemoglobin (Bld) [Mass/Vol] 11.5 g/dL Low 11.9 - 15.1 g/dL [facility] Interpretation and review of laboratory results Abnormal [facility] MCH (RBC) [Entitic mass] 27.3 pg 25.2 - 33.5 pg [facility] MCHC (RBC) [Mass/Vol] 29.6 g/dL 28.4 - 34.8 g/dL [facility] MCV (RBC) [Entitic vol] 92.2 fL 82.6 - 102.9 fL [facility] Nucleated RBC/100 WBC (Bld) [Ratio] 0.0 % 0.0 per 100 WBC [facility] Platelet mean volume (Bld) [Entitic vol] 10.0 fL 8.1 - 13.5 fL [facility] Platelets (Bld) [#/Vol] 190 10*3/uL [facility] RBC (Bld) [#/Vol] 4.21 10*6/uL 3.95 - 5.1 1 m/uL [facility] WBC other (Bld) [#/Vol] 12.6 High [facility] Erythrocyte distribution width (RBC) [Ratio] 14.6 % High 11.8-14.4 [facility] Comment on above: Performed By: #### F JUVENTINO, CBC #### [facility] [address] [place] [address]. [place] [address] Community Health Navigator: Bin Mckeon MD Hematocrit (Bld) [Volume fraction] 38.8 % Normal 36.3-47.1 [facility] Comment on above: Performed By: #### F JUVENTINO, CBC #### [facility] [address] [place] [address]. [place] [address] Community Health Navigator: Bin Mckeon MD Hemoglobin (Bld) [Mass/Vol] 11.5 g/dL Low 11.9-15.1 [facility] Comment on above: Performed By: #### F JUVENTINO, CBC #### [facility] [address] [place] [address] Community Health Navigator: Bin Mckeon MD MCH (RBC) [Entitic mass] 27.3 pg Normal 25.2-33.5 [facility] Comment on above: Performed By: #### F JUVENTINO, CBC #### [facility] [address] [place] [address]. [place] [address] Community Health Navigator: Bin Mckeon MD MCHC (RBC) [Mass/Vol] 29.6 g/dL Normal 28.4-34.8 [facility] Comment on above: Performed By: #### F JUVENTINO, CBC #### [facility] [address] [place], [place] [address], [place] [address] Community Health Navigator: iBn Mckeon MD MCV (RBC) [Entitic vol] 92.2 fL Normal 82.6-102.9 [facility] Comment on above: Performed By: #### F JUVENTINO, CBC #### [facility] [address] [place] [address] Community Health Navigator: Bin Mckeon MD NRBC Automated 0.0 per 100 WBC Normal 0.0 [facility] Comment on above: Performed By: #### F JUVENTINO CBC #### [facility] [address] [place], [place] [address]ia [facility] [place] [address] Community Health Navigator: Bin Mckeon MD Platelet mean volume (Bld) [Entitic vol] 10.0 fL Normal 8.1-13.5 [facility] Comment on above: Performed By: #### F JUVENTINO CBC #### [facility] [address] [place], [place] [address] [place] [address] Community Health Navigator: Bin Mckeon MD Platelets (Bld) [#/Vol] 190 10*3/uL Normal 138-453 [facility] Comment on above: Performed By: #### F JUVENTINO CBC #### [facility] [address] [place], [place] [address]ia [facility] [place] [address] Community Health Navigator: Bin Mckeon MD RBC (Bld) [#/Vol] 4.21 10*6/uL Normal 3.95-5.11 [facility] Comment on above: Performed By: #### F JUVENTINO, CBC #### [facility] [address] [place], [place] [address]ia [facility] [place] [address] Community Health Navigator: Bin Mckeon MD WBC (Bld) [#/Vol] 12.6 10*3/uL High 3.5-11.3 [facility] Comment on above: Performed By: #### F JUVENTINO, CBC #### [facility] [address] [facility] [place], [place] [address] Community Health Navigator: Bin Mckeon MD Lipid Panelon 05-06-2024 Cholesterol [Mass/Vol] 110 mg/dL 0 - 1 99 mg/dL [facility] Comment on above: Cholesterol Guidelines: <200 Desirable 200-240 Borderline >240 Undesirable Cholesterol in HDL [Mass/Vol] 49 mg/dL 40 - PINF mg/dL [facility] Comment on above: HDL Guidelines: <40 Undesirable 40-59 Borderline >59 Desirable Cholesterol in LDL [Mass/Vol] 47 mg/dL 0 - 100 mg/dL [facility] Comment on above: LDL Guidelines: <100 Desirable 100-129 Near to/above Desirable 130-159 Borderline >159 Undesirable Direct (measured) LDL and calculated LDL are not interchangeable tests. Cholesterol in VLDL [Mass/Vol] 14 mg/dL [facility] Cholesterol.total/Chol esterol in HDL [Mass ratio] 2.0 {ratio} [facility] Triglyceride [Mass/Vol] 71 mg/dL NINF - 150 mg/dL [facility] Comment on above: Triglyceride Guidelines: <150 Desirable 150-199 Borderline 200-499 High >499 Very high Based on AHA Guidelines for fasting triglyceride, July 2012. [facility] Lipid Profileon 05-06-2024 Cholesterol [Mass/Vol] 110 mg/dL Normal 0-199 [facility] Comment on above: Result Comment: Cholesterol Guidelines: <200 Desirable 200-240 Borderline >240 Undesirable Performed By: #### F JUVENTINO, CBC #### [facility] [address] [facility] [place] [address] Community Health Navigator: Bin Mckeon MD Cholesterol in HDL [Mass/Vol] 49 mg/dL Normal >40 [facility] Comment on above: Result Comment: HDL Guidelines: <40 Undesirable 40-59 Borderline >59 Desirable Performed By: #### F JUVENTINO, CBC #### [facility] [address] [facility] [place] [address] Community Health Navigator: Bin Mckeon MD Cholesterol in LDL [Mass/Vol] 47 mg/dL Normal 0-100 [facility] Comment on above: Result Comment: LDL Guidelines: <100 Desirable 100-129 Near to/above Desirable 130-159 Borderline >159 Undesirable Direct (measured) LDL and calculated LDL are not interchangeable tests. Performed By: #### F JUVENTINO, CBC #### [facility] [address] [place] [address] Community Health Navigator: Bin Mckeon MD Cholesterol in VLDL [Mass/Vol] 14 mg/dL Normal [facility] Comment on above: Performed By: #### F JUVENTINO, CBC #### [facility] [address] [place] [address] Community Health Navigator: Bin Mckeon MD Cholesterol.total/Chol esterol in HDL [Mass ratio] 2.0 {ratio} Normal [facility] Comment on above: Performed By: #### F JUVENTINO, CBC #### [facility] [address] [place] [address] Community Health Navigator: Bin Mckeon MD Triglyceride [Mass/Vol] 71 mg/dL Normal <150 [facility] Comment on above: Result Comment: Triglyceride Guidelines: <150 Desirable 150-199 Borderline 200-499 High >499 Very high Based on AHA Guidelines for fasting triglyceride, July 2012. Performed By: #### F JUVENTINO, CBC #### [facility] [address] [place] [address] Community Health Navigator: Bin Mckeon MD CBCon 11-13-2023 Erythrocyte distribution width (RBC) [Ratio] 13.3 % 11.8 - 14.4 % [facility] Hematocrit (Bld) [Volume fraction] 39.5 % 36.3 - 47.1 % [facility] Hemoglobin (Bld) [Mass/Vol] 12.4 g/dL 11.9 - 15.1 g/dL [facility] MCH (RBC) [Entitic mass] 28.6 pg 25.2 - 33.5 pg [facility] MCHC (RBC) [Mass/Vol] 31.4 g/dL 28.4 - 34.8 g/dL [facility] MCV (RBC) [Entitic vol] 91.0 fL 82.6 - 102.9 fL [facility] Nucleated RBC/100 WBC (Bld) [Ratio] 0.0 % 0.0 per 100 WBC [facility] Platelet mean volume (Bld) [Entitic vol] 9.5 fL 8.1 - 13.5 fL [facility] Platelets (Bld) [#/Vol] 185 10*3/uL [facility] RBC (Bld) [#/Vol] 4.34 10*6/uL 3.95 - 5.1 1 m/uL [facility] WBC other (Bld) [#/Vol] 6.2 [facility] CBCon 06-26-2023 Erythrocyte distribution width (RBC) [Ratio] 13.6 % 11.8 - 14.4 % [facility] Hematocrit (Bld) [Volume fraction] 37.0 % 36.3 - 47.1 % [facility] Hemoglobin (Bld) [Mass/Vol] 11.0 g/dL Low 11.9 - 15.1 g/dL [facility] Interpretation and review of laboratory results Abnormal [facility] MCH (RBC) [Entitic mass] 27.3 pg 25.2 - 33.5 pg [facility] MCHC (RBC) [Mass/Vol] 29.7 g/dL 28.4 - 34.8 g/dL [facility] MCV (RBC) [Entitic vol] 91.8 fL 82.6 - 102.9 fL [facility] Nucleated RBC/100 WBC (Bld) [Ratio] 0.0 % 0.0 per 100 WBC [facility] Platelet mean volume (Bld) [Entitic vol] 9.9 fL 8.1 - 13.5 fL [facility] Platelets (Bld) [#/Vol] 162 10*3/uL [facility] RBC (Bld) [#/Vol] 4.03 10*6/uL 3.95 - 5.1 1 m/uL [facility] WBC other (Bld) [#/Vol] 4.8 [facility] Ammoniaon 06-19-2023 Ammonia (P) [Moles/Vol] 18 umol/L 11 - 51 umol/L [facility] Valproic Acid Level, Totalon 06-19-2023 Interpretation and review of laboratory results Abnormal [facility] Valproate [Mass/Vol] ug/mL Low 50 - 12 5 ug/mL [facility] Ammoniaon 03-20-2023 Ammonia (P) [Moles/Vol] 18 umol/L 11 - 51 umol/L [facility] Valproic Acid Level, Totalon 03-20-2023 Interpretation and review of laboratory results Abnormal [facility] Valproate [Mass/Vol] 12 ug/mL Low 50 - 12 5 ug/mL [facility] CBCon 01-23-2023 Hematocrit (Bld) [Volume fraction] 40.9 % 36.3 - 47.1 % [facility] Hemoglobin (Bld) [Mass/Vol] 12.0 g/dL 11.9 - 15.1 g/dL [facility] MCH (RBC) [Entitic mass] 26.4 pg 25.2 - 33.5 pg [facility] MCHC (RBC) [Mass/Vol] 29.3 g/dL 28.4 - 34.8 g/dL [facility] MCV (RBC) [Entitic vol] 90.1 fL 82.6 - 102.9 fL [facility] NRBC Automated 0.0 0.0 per 100 WBC [facility] Platelet distribution width (Bld) [Ratio] 13.8 % 11.8 - 14.4 % [facility] Platelet mean volume (Bld) [Entitic vol] 9.4 fL 8.1 - 13.5 fL [facility] Platelets (Bld) [#/Vol] 295 10*3/uL [facility] RBC (Bld) [#/Vol] 4.54 10*6/uL 3.95 - 5.1 1 m/uL [facility] WBC (Bld) [#/Vol] 7.8 10*3/uL [facility] Iron and TIBCon 01-23-2023 Interpretation and review of laboratory results Abnormal [facility] Iron [Mass/Vol] 66 ug/dL 37 - 145 ug/dL [facility] Iron binding capacity [Mass/Vol] 193 ug/dL Low 250 - 450 ug/dL [facility] Iron Saturation 34 % 20 - 55 % [facility] UIBC 127 ug/dL 112 - 347 ug/dL [facility] Ammoniaon 12-21-2022 Ammonia (P) [Moles/Vol] 29 umol/L 11 - 51 umol/L [facility] Valproic Acid Level, Totalon 12-21-2022 Interpretation and review of laboratory results Abnormal [facility] Valproate [Mass/Vol] 17 ug/mL Low 50 - 12 5 ug/mL [facility] Basophil percentageOrdered B y: Dr. Vidal on 12-11-2022 Bilirubin [Mass/Vol] 0.60 mg/dL 0.20-1.00 [facility] Comment on above: For patients on eltr ombopag therapy, use of Dimension [place] TBIL is not recommended. Chloride [Moles/Vol] 108 mmol/L 98-107 [facility] Cholesterol [Mass/Vol] 179 mg/dL <200 [facility] Comment on above: <200 mg/dL Desirable 200-240 mg/dL Borderline >240 mg/dL High Risk Glucose [Mass/Vol] 92 mg/dL 74-106 [facility] Potassium [Moles/Vol] 3.6 mmol/L 3.5-5.1 [facility] Protein [Mass/Vol] 6.6 g/dL 6.4-8.2 [facility] Sodium [Moles/Vol] 143 mmol/L 136-145 [facility] Triglyceride [Mass/Vol] 91 mg/dL <199 [facility] Comment on above: The drugs N-Acetylcy steine and Metamizole may falsely depress this assay.Serum Triglycerides Reference Interval Normal <150 mg/dL Borderline high 150 - 199 mg/dL High 200 - 499 mg/dL Very High > or = 500 mg/dL Laboratory - Chemistry and C hemistry - challengeOrdered By: Dr. Vidal on 12-11-2022 ALP [Catalytic activity/Vol] 56 U/L 45-117 [facility] ALT [Catalytic activity/Vol] 15 U/L 13-56 [facility] CO2 [Moles/Vol] 29.0 mmol/L 21.0-32.0 [facility] Globulin (S) [Mass/Vol] 3.3 g/dL 2.2-4.2 [facility] Urea nitrogen/Creatinine [Mass ratio] 19.5 mg/mg 10-20 [facility] No Panel InformationOrdered By: Dr. Vidal on 12-11-2022 Estimated GFR (MDRD) Amer 75 mL/min >60 [facility] Comment on above: GFR Calc Estimated GFR (MDRD) Non-Af Amer 62 mL/min >60 [facility] Comment on above: Non- GFR Calc Parathyroid Hormone (Intact) 75.8 pg/mL 18.4-80.1 [facility] Thyroid Stimulating Hormone (TSH) 0.91 uIU/mL 0.358-3.74 [facility] Vitamin D 25-Hydroxy 63.4 ng/mL [facility] Comment on above: Vitamin D 25(OH) Sta tus Range Deficiency <20 ng/mL (50nmol/L) Insufficiency 20 - 30 ng/mL (50 - 75 nmol/L) Sufficiency 30 - 100 ng/mL (75 - 250 nmol/L) Toxicity >100 ng/mL (>250 nmol/L) Serum or plasma albumin courtney urement (mass/volume)Ordered By: Dr. Vdial on 12-11-2022 Albumin [Mass/Vol] 3.3 g/dL 3.2-5.0 [facility] Serum or plasma albumin/glob ulin mass ratioOrdered By: Dr. Vidal on 12-11-2022 Albumin/Globulin [Mass ratio] 1.0 {ratio} 0.9-2.4 [facility] Serum or plasma calcium courtney urement (mass/volume)Ordered By: Dr. Vidal on 12-11-2022 Calcium [Mass/Vol] 9.0 mg/dL 8.5-10.1 [facility] Serum or plasma cholesterol in HDL measurement (mass/volume)Ordered By: Dr. Vidal on 12-11-2022 Cholesterol in HDL [Mass/Vol] 71 mg/dL >40 [facility] Comment on above: The drugs N-Acetylcy steine and Metamizole may falsely depress this assay. Reference Range HDL <40 mg/dL Low HDL Cholesterol HDL >or= 60 mg/dL High HDL Cholesterol Serum or plasma cholesterol in VLDL measurement (mass/volume)Ordered By: Dr. Vidal on 12-11-2022 Cholesterol in VLDL [Mass/Vol] 18 mg/dL 5-40 [facility] Serum or plasma creatinine m easurement (mass/volume)Ordered By: Dr. Vidal on 12-11-2022 Creatinine [Mass/Vol] 0.92 mg/dL 0.55-1.02 [facility] Comment on above: The validity of the calculated GFR & GFRAA in patients over 70 years has not been determined. Clinical correlation is essential. Serum or plasma low density lipoprotein (LDL) cholesterol measurement (mass/volume)Ordered By: Dr. Vidal on 12-11-2022 Cholesterol in LDL [Mass/Vol] 90 mg/dL 0-130 [facility] Serum or plasma urea nitroge n measurement (mass/volume)Ordered By: Dr. Vidal on 12-11-2022 Urea nitrogen [Mass/Vol] 18 mg/dL 7-18 [facility] Thin prep Papanicolaou smear with manual screeningOrdered By: Dr. Vidal on 12-11-2022 Thin prep Papanicolaou smear with manual screening 16 U/L 15-37 [facility] Thin prep Papanicolaou smear with manual screening 6 5-15 [facility] Lipid Panelon 10-10-2022 Cholesterol [Mass/Vol] 116 mg/dL NINF - 200 mg/dL [facility] Comment on above: Cholesterol Guidelines: <200 Desirable 200-240 Borderline >240 Undesirable Cholesterol in HDL [Mass/Vol] 42 mg/dL 40 - PINF mg/dL [facility] Comment on above: HDL Guidelines: <40 Undesirable 40-59 Borderline >59 Desirable Cholesterol in LDL [Mass/Vol] 64 mg/dL 0 - 130 mg/dL [facility] Comment on above: LDL Guidelines: <100 Desirable 100-129 Near to/above Desirable 130-159 Borderline >159 Undesirable Direct (measured) LDL and calculated LDL are not interchangeable tests. Cholesterol.total/Chol esterol in HDL [Mass ratio] 2.8 {ratio} NINF - 5 [facility] Triglyceride [Mass/Vol] 51 mg/dL NINF - 150 mg/dL [facility] Comment on above: Triglyceride Guidelines: <150 Desirable 150-199 Borderline 200-499 High >499 Very high Based on AHA Guidelines for fasting triglyceride, July 2012. [facility] Ammoniaon 09-19-2022 Ammonia (P) [Moles/Vol] 18 umol/L 11 - 51 umol/L [facility] CBC with Auto Differentialon 09-19-2022 Absolute Eos # 0.18 [facility] Absolute Immature Granulocyte 0.01 [facility] Absolute Lymph # 2.31 [facility] Absolute [place] # 0.42 [facility] Basophils (Bld) [#/Vol] 0.03 10*3/uL [facility] Basophils/100 WBC (Bld) 1 % 0 - 2 % [facility] Eosinophils/100 WBC (Bld) 3 % 1 - 4 % [facility] Hematocrit (Bld) [Volume fraction] 41.3 % 36.3 - 47.1 % [facility] Hemoglobin (Bld) [Mass/Vol] 12.2 g/dL 11.9 - 15.1 g/dL [facility] Immature granulocytes/100 WBC (Bld) 0 % 0 [facility] Interpretation and review of laboratory results Abnormal [facility] Lymphocytes/100 WBC (Bld) 42 % 24 - 43 % [facility] MCH (RBC) [Entitic mass] 26.4 pg 25.2 - 33.5 pg [facility] MCHC (RBC) [Mass/Vol] 29.5 g/dL 28.4 - 34.8 g/dL [facility] MCV (RBC) [Entitic vol] 89.4 fL 82.6 - 102.9 fL [facility] Monocytes/100 WBC (Bld) 8 % 3 - 12 % [facility] NRBC Automated 0.0 0.0 per 100 WBC [facility] Platelet distribution width (Bld) [Ratio] 14.6 % High 11.8 - 14.4 % [facility] Platelet mean volume (Bld) [Entitic vol] 9.8 fL 8.1 - 13.5 fL [facility] Platelets (Bld) [#/Vol] 157 10*3/uL [facility] RBC (Bld) [#/Vol] 4.62 10*6/uL 3.95 - 5.1 1 m/uL [facility] RBC (Bld) [#/Vol] ANISOCYTOSIS PRESENT [facility] Segmented neutrophils/100 WBC (Bld) 46 % 36 - 65 % [facility] Segs Absolute 2.60 [facility] WBC (Bld) [#/Vol] 5.6 10*3/uL [facility] Valproic Acid Level, Totalon 09-19-2022 Interpretation and review of laboratory results Abnormal [facility] Valproic Acid Lvl 7 ug/mL Low 50 - 125 ug/mL [facility] CBCon 09-14-2022 Hematocrit (Bld) [Volume fraction] 41.4 % 36.3 - 47.1 % [facility] Hemoglobin (Bld) [Mass/Vol] 12.2 g/dL 11.9 - 15.1 g/dL [facility] MCH (RBC) [Entitic mass] 26.5 pg 25.2 - 33.5 pg [facility] MCHC (RBC) [Mass/Vol] 29.5 g/dL 28.4 - 34.8 g/dL [facility] MCV (RBC) [Entitic vol] 89.8 fL 82.6 - 102.9 fL [facility] NRBC Automated 0.0 0.0 per 100 WBC [facility] Platelet distribution width (Bld) [Ratio] 14.3 % 11.8 - 14.4 % [facility] Platelet mean volume (Bld) [Entitic vol] 9.9 fL 8.1 - 13.5 fL [facility] Platelets (Bld) [#/Vol] 152 10*3/uL [facility] RBC (Bld) [#/Vol] 4.61 10*6/uL 3.95 - 5.1 1 m/uL [facility] WBC (Bld) [#/Vol] 5.2 10*3/uL [facility] Iron and TIBCon 09-14-2022 Iron [Mass/Vol] 61 ug/dL 37 - 145 ug/dL [facility] Iron Saturation 24 % 20 - 55 % [facility] TIBC 259 ug/dL 250 - 450 ug/dL [facility] UIBC 198 ug/dL 112 - 347 ug/dL [facility] CBC with Auto Differentialon 05-16-2022 Absolute Eos # 0.20 [place] [facility] Absolute Immature Granulocyte 0.00 [facility] Absolute Lymph # 2.01 [facility] Absolute [place] # 0.36 [facility] RS [facility] Basophils (Bld) [#/Vol] 0.03 10*3/uL [facility] Basophils/100 WBC (Bld) 1 % 0 - 2 % [facility] Eosinophils/100 WBC (Bld) 5 % High 1 - 4 % [facility] Hematocrit (Bld) [Volume fraction] 39.1 % 36.3 - 47.1 % [facility] Hemoglobin (Bld) [Mass/Vol] 11.6 g/dL Low 11.9 - 15.1 g/dL [facility] Immature granulocytes/100 WBC (Bld) 0 % 0 [facility] Interpretation and review of laboratory results Abnormal [facility] Lymphocytes/100 WBC (Bld) 47 % High 24 - 43 % [facility] MCH (RBC) [Entitic mass] 25.4 pg 25.2 - 33.5 pg [facility] MCHC (RBC) [Mass/Vol] 29.7 g/dL 28.4 - 34.8 g/dL [facility] MCV (RBC) [Entitic vol] 85.6 fL 82.6 - 102.9 fL [facility] Monocytes/100 WBC (Bld) 8 % 3 - 12 % [facility] NRBC Automated 0.0 0.0 per 100 WBC [facility] Platelet distribution width (Bld) [Ratio] 14.4 % 11.8 - 14.4 % [facility] Platelet mean volume (Bld) [Entitic vol] 10.0 fL 8.1 - 13.5 fL [facility] Platelets (Bld) [#/Vol] 144 10*3/uL [facility] RBC (Bld) [#/Vol] 4.57 10*6/uL 3.95 - 5.1 1 m/uL [facility] Segmented neutrophils/100 WBC (Bld) 39 % 36 - 65 % [facility] Segs Absolute 1.69 [facility] WBC (Bld) [#/Vol] 4.3 10*3/uL [facility] CBCon 03-16-2022 Hematocrit (Bld) [Volume fraction] 41.6 % 36.3 - 47.1 % [facility] Hemoglobin (Bld) [Mass/Vol] 12.2 g/dL 11.9 - 15.1 g/dL [facility] MCH (RBC) [Entitic mass] 25.4 pg 25.2 - 33.5 pg [facility] MCHC (RBC) [Mass/Vol] 29.3 g/dL 28.4 - 34.8 g/dL [facility] MCV (RBC) [Entitic vol] 86.7 fL 82.6 - 102.9 fL [facility] NRBC Automated 0.0 0.0 per 100 WBC [facility] Platelet distribution width (Bld) [Ratio] 14.3 % 11.8 - 14.4 % [facility] Platelet mean volume (Bld) [Entitic vol] 9.6 fL 8.1 - 13.5 fL [facility] Platelets (Bld) [#/Vol] 183 10*3/uL [facility] RBC (Bld) [#/Vol] 4.80 10*6/uL 3.95 - 5.1 1 m/uL [facility] WBC (Bld) [#/Vol] 6.7 10*3/uL [facility] Comprehensive Metabolic Pane flo 03-16-2022 Albumin [Mass/Vol] 4.8 g/dL 3.5 - 5.2 g/dL [facility] ALP (Bld) [Catalytic activity/Vol] 75 U/L 35 - 104 U/L [facility] ALT [Catalytic activity/Vol] U/L Low 5 - 33 U/L [facility] Anion gap [Moles/Vol] 9 mmol/L 9 - 17 mmol/L [facility] AST [Catalytic activity/Vol] 14 U/L <32 [facility] Bilirubin [Mass/Vol] 0.44 mg/dL 0.3 - 1 .2 mg/dL [facility] Calcium [Mass/Vol] 10.1 mg/dL 8.6 - 10. 4 mg/dL [facility] Chloride [Moles/Vol] 104 mmol/L 98 - 10 7 mmol/L [facility] CO2 [Moles/Vol] 27 mmol/L 20 - 31 mmol/L [facility] Creatinine [Mass/Vol] 1.09 mg/dL High 0.50 - 0.90 mg/dL [facility] Free PSA/Total PSA [Mass fraction] 7.5 g/dL 6.4 - 8.3 g/dL [facility] GFR 58 mL/min Low >60 [facility] GFR Non- 48 mL/min Low >60 [facility] GFR/1.73 sq M.predicted MDRD (S/P/Bld) [Vol rate/Area] [facility] Comment on above: Average GFR for 70 o r more years old: 75 mL/min/1.73sq m Chronic Kidney Disease: <60 mL/min/1.73sq m Kidney failure: <15 mL/min/1.73sq m eGFR calculated using average adult body mass. Additional eGFR calculator available at: http://www.[employer]/multiple_crcl_2012.htm Glucose [Mass/Vol] 87 mg/dL 70 - 99 mg/dL [facility] Interpretation and review of laboratory results Abnormal [facility] [employer] Potassium [Moles/Vol] 4.9 mmol/L 3.7 - 5.3 mmol/L [facility]Marfeel[facility] Sodium [Moles/Vol] 140 mmol/L 135 - 144 mmol/L [facility] [employer] Urea nitrogen (BldV) [Mass/Vol] 29 mg/dL High 8 - 23 mg/dL [facility] Urea nitrogen/Creatinine (Bld) [Mass ratio] 27 High [facility]ITAL[facility] [employer] [facility] No Panel Informationon 03-16 [facility] T4, Freeon 03-16-2022 Thyroxine, Free 1.30 ng/dL 0.93 - 1.70 ng/dL [facility] TSHon 03-16-2022 TSH Qn 1.66 m[IU]/L [facility] [place] Lipid Panelon 03-14-2022 Cholesterol [Mass/Vol] 119 mg/dL <200 [facility] [place] Comment on above: Cholesterol Guidelines: <200 Desirable 200-240 Borderline >240 Undesirable Cholesterol in HDL [Mass/Vol] 40 mg/dL Low >40 [facility] [employer] Comment on above: HDL Guidelines: <40 Undesirable 40-59 Borderline >59 Desirable Cholesterol in LDL [Mass/Vol] 64 mg/dL 0 - 130 mg/dL [facility] [employer] Comment on above: LDL Guidelines: <100 Desirable 100-129 Near to/above Desirable 130-159 Borderline >159 Undesirable Direct (measured) LDL and calculated LDL are not interchangeable tests. Cholesterol.total/Chol esterol in HDL [Mass ratio] 3 {ratio} <5 [facility] [place] Interpretation and review of laboratory results Abnormal [facility] Triglyceride [Mass/Vol] 74 mg/dL <150 [facility] Comment on above: Triglyceride Guidelines: <150 Desirable 150-199 Borderline 200-499 High >499 Very high Based on AHA Guidelines for fasting triglyceride, July 2012. [employer] CBC with Auto Differentialon 01-12-2022 Absolute Eos # 0.27 [facility] th Absolute Immature Granulocyte <0.03 [facility] Absolute Lymph # 2.48 [facility] Absolute [place] # 0.50 [facility] Basophils (Bld) [#/Vol] 0.03 10*3/uL [facility] Basophils/100 WBC (Bld) 1 % 0 - 2 % [facility] Eosinophils/100 WBC (Bld) 5 % High 1 - 4 % [facility] Hematocrit (Bld) [Volume fraction] 37.6 % 36.3 - 47.1 % [facility] Hemoglobin.gastrointes tinal spec 1 Ql (Stl) 11.0 g/dL Low 11.9 - 15.1 g/dL [facility] Immature granulocytes/100 WBC (Bld) 0 % 0 [facility] Interpretation and review of laboratory results Abnormal [facility] Lymphocytes/100 WBC (Bld) 43 % 24 - 43 % [facility] MCH (RBC) [Entitic mass] 25.7 pg 25.2 - 33.5 pg [facility] MCHC (RBC) [Mass/Vol] 29.3 g/dL 28.4 - 34.8 g/dL [facility] MCV (RBC) [Entitic vol] 87.9 fL 82.6 - 102.9 fL [facility] Monocytes/100 WBC (Bld) 9 % 3 - 12 % [facility] NRBC Automated 0.0 0.0 per 100 WBC [facility] Platelet distribution width (Bld) [Ratio] 15.1 % High 11.8 - 14.4 % [facility] Platelet mean volume (Bld) [Entitic vol] 9.6 fL 8.1 - 13.5 fL [facility] Platelets (Bld) [#/Vol] 293 10*3/uL [facility] RBC (Bld) [#/Vol] 4.28 10*6/uL 3.95 - 5.1 1 m/uL [facility] RBC (Bld) [#/Vol] ANISOCYTOSIS PRESENT [facility] Segmented neutrophils/100 WBC (Bld) 42 % 36 - 65 % [facility] Segs Absolute 2.41 [facility] WBC (Bld) [#/Vol] 5.7 10*3/uL [facility] Comprehensive Metabolic Pane flo 01-12-2022 Albumin [Mass/Vol] 4.1 g/dL 3.5 - 5.2 g/dL [facility] Albumin/Globulin [Mass ratio] 1.4 {ratio} [facility] ALP (Bld) [Catalytic activity/Vol] 77 U/L 35 - 104 U/L [facility] ALT [Catalytic activity/Vol] 8 U/L 5 - 33 U/L [facility] Anion gap [Moles/Vol] 12 mmol/L 9 - 17 mmol/L [facility] AST [Catalytic activity/Vol] 16 U/L <32 [facility] Bilirubin [Mass/Vol] 0.42 mg/dL 0.3 - 1 .2 mg/dL [facility] Calcium [Mass/Vol] 9.7 mg/dL 8.6 - 10. 4 mg/dL [facility] Chloride [Moles/Vol] 104 mmol/L 98 - 10 7 mmol/L [facility] CO2 [Moles/Vol] 24 mmol/L 20 - 31 mmol/L [facility] Creatinine [Mass/Vol] 0.95 mg/dL High 0.50 - 0.90 mg/dL [facility] Free PSA/Total PSA [Mass fraction] 7.0 g/dL 6.4 - 8.3 g/dL [facility] GFR >60 >60 mL/min [facility] GFR Non- 56 mL/min Low >60 [facility] GFR/1.73 sq M.predicted MDRD (S/P/Bld) [Vol rate/Area] [facility] Comment on above: Average GFR for 70 o r more years old: 75 mL/min/1.73sq m Chronic Kidney Disease: <60 mL/min/1.73sq m Kidney failure: <15 mL/min/1.73sq m eGFR calculated using average adult body mass. Additional eGFR calculator available at: http://www.Antidot.Ongage/multiple_crcl_2012.htm Glucose [Mass/Vol] 84 mg/dL 70 - 99 mg/dL [facility] Interpretation and review of laboratory results Abnormal [facility] Potassium [Moles/Vol] 4.7 mmol/L 3.7 - 5.3 mmol/L [facility] Sodium [Moles/Vol] 140 mmol/L 135 - 144 mmol/L [facility] Urea nitrogen (BldV) [Mass/Vol] 17 mg/dL 8 - 23 mg/dL [facility] Iron and TIBCon 01-12-2022 Interpretation and review of laboratory results Abnormal [facility] Iron [Mass/Vol] 35 ug/dL Low 37 - 145 ug/dL [facility] Iron Saturation 16 % Low 20 - 55 % [facility] TIBC 222 ug/dL Low 250 - 450 ug/dL [facility] UIBC 187 ug/dL 112 - 347 ug/dL [facility] No Panel Informationon 01-12 [facility] T4, Freeon 01-12-2022 Thyroxine, Free 1.05 ng/dL 0.93 - 1.70 ng/dL [facility] TSHon 01-12-2022 Interpretation and review of laboratory results Abnormal [facility] TSH Qn 13.58 m[IU]/L High [facility] Lipid Panelon 10-25-2021 Cholesterol [Mass/Vol] 141 mg/dL <200 [facility] Comment on above: Cholesterol Guidelines: <200 Desirable 200-240 Borderline >240 Undesirable Cholesterol in HDL [Mass/Vol] 44 mg/dL >40 [facility] Comment on above: HDL Guidelines: <40 Undesirable 40-59 Borderline >59 Desirable Cholesterol in LDL [Mass/Vol] 83 mg/dL 0 - 130 mg/dL [facility] Comment on above: LDL Guidelines: <100 Desirable 100-129 Near to/above Desirable 130-159 Borderline >159 Undesirable Direct (measured) LDL and calculated LDL are not interchangeable tests. Cholesterol in VLDL [Mass/Vol] NOT REPORTED 1 - 30 mg/dL [facility] Cholesterol.total/Chol esterol in HDL [Mass ratio] 3.2 {ratio} <5 [facility] Triglyceride [Mass/Vol] 70 mg/dL <150 [facility] Comment on above: Triglyceride Guidelines: <150 Desirable 150-199 Borderline 200-499 High >499 Very high Based on AHA Guidelines for fasting triglyceride, July 2012. [facility] CBCOrdered By: Bin holman on 06-23-2021 Hematocrit (Bld) [Volume fraction] 35.9 % Low 36.3 - 47.1 % [facility] [employer] Work Phone: Hemoglobin.gastrointes tinal spec 1 Ql (Stl) 10.9 g/dL Low 11.9 - 15.1 g/dL [employer] Phone: Interpretation and review of laboratory results Abnormal [employer] Phone: MCH (RBC) [Entitic mass] 27.0 pg 25.2 - 33.5 pg [employer] Phone: MCHC (RBC) [Mass/Vol] 30.4 g/dL 28.4 - 34.8 g/dL [employer] Phone: MCV (RBC) [Entitic vol] 89.1 fL 82.6 - 102.9 fL [employer] Phone: NRBC Automated 0.0 0.0 per 100 WBC [employer] Phone: Platelet distribution width (Bld) [Ratio] 13.8 % 11.8 - 14.4 % [employer] Phone: Platelet mean volume (Bld) [Entitic vol] 9.9 fL 8.1 - 13.5 fL [employer] Phone: Platelets (Bld) [#/Vol] 156 10*3/uL [employer] Phone: RBC (Bld) [#/Vol] 4.03 10*6/uL 3.95 - 5.1 1 m/uL [employer] Phone: WBC (Bld) [#/Vol] 5.4 10*3/uL [employer] Phone: [employer] Phone: Comprehensive Metabolic Pane lOrdered By: Bin Curtis on 06-23-2021 Albumin [Mass/Vol] 4.1 g/dL 3.5 - 5.2 g/dL [employer] Phone: Albumin/Globulin [Mass ratio] 1.6 {ratio} [employer] Phone: ALP (Bld) [Catalytic activity/Vol] 71 U/L 35 - 104 U/L [employer] Phone: ALT [Catalytic activity/Vol] 8 U/L 5 - 33 U/L [employer] Phone: Anion gap [Moles/Vol] 11 mmol/L 9 - 17 mmol/L [employer] Phone: AST [Catalytic activity/Vol] 17 U/L <32 [employer] Phone: Bilirubin [Mass/Vol] 0.52 mg/dL 0.3 - 1 .2 mg/dL [employer] Phone: Calcium [Mass/Vol] 9.3 mg/dL 8.6 - 10. 4 mg/dL [employer] Phone: Chloride [Moles/Vol] 108 mmol/L High 98 - 10 7 mmol/L [employer] Phone: CO2 [Moles/Vol] 21 mmol/L 20 - 31 mmol/L [employer] Phone: Creatinine [Mass/Vol] 1.1 mg/dL High 0.50 - 0.90 mg/dL [employer] Phone: Free PSA/Total PSA [Mass fraction] 6.6 g/dL 6.4 - 8.3 g/dL [employer] Phone: GFR 58 mL/min Low >60 [employer] Phone: GFR Non- 48 mL/min Low >60 [employer] Phone: GFR/1.73 sq M.predicted MDRD (S/P/Bld) [Vol rate/Area] [employer] Phone: Comment on above: Average GFR for 70 o r more years old: 75 mL/min/1.73sq m Chronic Kidney Disease: <60 mL/min/1.73sq m Kidney failure: <15 mL/min/1.73sq m eGFR calculated using average adult body mass. Additional eGFR calculator available at: http://www.Dune Science/multiple_crcl_2012.htm GFR/1.73 sq M.predicted MDRD (S/P/Bld) [Vol rate/Area] NOT REPORTED [employer] Phone: Glucose [Mass/Vol] 81 mg/dL 70 - 99 mg/dL [employer] Phone: Interpretation and review of laboratory results Abnormal [employer] Phone: Potassium [Moles/Vol] 5.0 mmol/L 3.7 - 5.3 mmol/L [employer] Phone: Sodium [Moles/Vol] 140 mmol/L 135 - 144 mmol/L [employer] Phone: Urea nitrogen (BldV) [Mass/Vol] 40 mg/dL High 8 - 23 mg/dL [employer] Phone: Urea nitrogen/Creatinine (Bld) [Mass ratio] NOT REPORTED [employer] Phone: [employer] Phone: No Panel InformationOrdered By: Bin Curtis on 06-23-2021 [employer] Phone: T4, FreeOrdered By: Bin Curtis on 06-23-2021 Thyroxine, Free 1.20 ng/dL 0.93 - 1.70 ng/dL [employer] Phone: TSH without ReflexOrdered By : Bin Curtis on 06-23-2021 TSH Qn 2.24 m[IU]/L [employer] Phone: Lipid PanelOrdered By: So Curtis on 04-12-2021 Cholesterol [Mass/Vol] 87 mg/dL <200 [employer] Phone: Comment on above: Cholesterol Guidelines: <200 Desirable 200-240 Borderline >240 Undesirable Cholesterol in HDL [Mass/Vol] 37 mg/dL Low >40 [employer] Phone: Comment on above: HDL Guidelines: <40 Undesirable 40-59 Borderline >59 Desirable Cholesterol in LDL [Mass/Vol] 37 mg/dL 0 - 130 mg/dL [employer] Phone: Comment on above: LDL Guidelines: <100 Desirable 100-129 Near to/above Desirable 130-159 Borderline >159 Undesirable Direct (measured) LDL and calculated LDL are not interchangeable tests. Cholesterol in VLDL [Mass/Vol] NOT REPORTED 1 - 30 mg/dL [employer] Phone: Cholesterol.total/Chol esterol in HDL [Mass ratio] 2.4 {ratio} <5 [employer] Phone: Interpretation and review of laboratory results Abnormal [employer] Phone: Triglyceride [Mass/Vol] 66 mg/dL <150 [employer] Phone: Comment on above: Triglyceride Guidelines: <150 Desirable 150-199 Borderline 200-499 High >499 Very high Based on AHA Guidelines for fasting triglyceride, July 2012. [employer] Phone: CBCOrdered By: Bin holman on 02-15-2021 Hematocrit (Bld) [Volume fraction] 37.2 % 36.3 - 47.1 % [employer] Phone: Hemoglobin.gastrointes tinal spec 1 Ql (Stl) 11.4 g/dL Low 11.9 - 15.1 g/dL [employer] Phone: Interpretation and review of laboratory results Abnormal [employer] Phone: MCH (RBC) [Entitic mass] 26.6 pg 25.2 - 33.5 pg [employer] Phone: MCHC (RBC) [Mass/Vol] 30.6 g/dL 28.4 - 34.8 g/dL [employer] Phone: MCV (RBC) [Entitic vol] 86.9 fL 82.6 - 102.9 fL [employer] Phone: NRBC Automated 0.0 0.0 per 100 WBC [employer] Phone: Platelet distribution width (Bld) [Ratio] 14.4 % 11.8 - 14.4 % [employer] Phone: Platelet mean volume (Bld) [Entitic vol] 10.1 fL 8.1 - 13.5 fL [employer] Phone: Platelets (Bld) [#/Vol] 169 10*3/uL [employer] Phone: RBC (Bld) [#/Vol] 4.28 10*6/uL 3.95 - 5.1 1 m/uL [employer] Phone: WBC (Bld) [#/Vol] 5.7 10*3/uL [employer] Phone: Comprehensive Metabolic Pane lOrdered By: Bin Curtis on 02-15-2021 Albumin [Mass/Vol] 4.2 g/dL 3.5 - 5.2 g/dL [employer] Phone: Albumin/Globulin [Mass ratio] 1.6 {ratio} [employer] Phone: ALP (Bld) [Catalytic activity/Vol] 69 U/L 35 - 104 U/L [employer] Phone: ALT [Catalytic activity/Vol] 8 U/L 5 - 33 U/L [employer] Phone: Anion gap [Moles/Vol] 9 mmol/L 9 - 17 mmol/L [employer] Phone: AST [Catalytic activity/Vol] 15 U/L <32 [employer] Phone: Bilirubin [Mass/Vol] 0.51 mg/dL 0.3 - 1 .2 mg/dL [employer] Phone: Calcium [Mass/Vol] 9.5 mg/dL 8.6 - 10. 4 mg/dL [employer] Phone: Chloride [Moles/Vol] 107 mmol/L 98 - 10 7 mmol/L [employer] Phone: CO2 [Moles/Vol] 24 mmol/L 20 - 31 mmol/L [employer] Phone: Creatinine [Mass/Vol] 1.04 mg/dL High 0.50 - 0.90 mg/dL [employer] Phone: Free PSA/Total PSA [Mass fraction] 6.8 g/dL 6.4 - 8.3 g/dL [employer] Phone: GFR >60 >60 mL/min [employer] Phone: GFR Non- 51 mL/min Low >60 [employer] Phone: GFR/1.73 sq M.predicted MDRD (S/P/Bld) [Vol rate/Area] [employer] Phone: Comment on above: Average GFR for 70 o r more years old: 75 mL/min/1.73sq m Chronic Kidney Disease: <60 mL/min/1.73sq m Kidney failure: <15 mL/min/1.73sq m eGFR calculated using average adult body mass. Additional eGFR calculator available at: http://www.Antidot.Ongage/multiple_crcl_2012.htm GFR/1.73 sq M.predicted MDRD (S/P/Bld) [Vol rate/Area] NOT REPORTED [employer] Phone: Glucose [Mass/Vol] 85 mg/dL 70 - 99 mg/dL [employer] Phone: Interpretation and review of laboratory results Abnormal [employer] Phone: Potassium [Moles/Vol] 4.6 mmol/L 3.7 - 5.3 mmol/L [employer] Phone: Sodium [Moles/Vol] 140 mmol/L 135 - 144 mmol/L [employer] Phone: Urea nitrogen (BldV) [Mass/Vol] 41 mg/dL High 8 - 23 mg/dL [employer] Phone: Urea nitrogen/Creatinine (Bld) [Mass ratio] NOT REPORTED [employer] Phone: CBCon 12-21-2020 Erythrocyte distribution width (RBC) [Ratio] 13.6 % 11.8 - 14.4 % [employer] Phone: Hematocrit (Bld) [Volume fraction] 39.1 % 36.3 - 47.1 % [employer] Phone: Hemoglobin (Bld) [Mass/Vol] 11.7 g/dL Low 11.9 - 15.1 g/dL [employer] Phone: Interpretation and review of laboratory results Abnormal [employer] Phone: MCH (RBC) [Entitic mass] 26.7 pg 25.2 - 33.5 pg [employer] Phone: MCHC (RBC) [Mass/Vol] 29.9 g/dL 28.4 - 34.8 g/dL [employer] Phone: MCV (RBC) [Entitic vol] 89.3 fL 82.6 - 102.9 fL [employer] Phone: Platelet mean volume (Bld) [Entitic vol] 9.9 fL 8.1 - 13.5 fL [employer] Phone: Platelets (Bld) [#/Vol] 172 10*3/uL [employer] Phone: RBC (Bld) [#/Vol] 4.38 10*6/uL 3.95 - 5.1 1 m/uL [employer] Phone: WBC (Bld) [#/Vol] 5.8 10*3/uL [employer] Phone: WBC (Bld) [#/Vol] 0.0 10*3/uL 0.0 per 10 0 WBC [employer] Phone: Comprehensive Metabolic Pane flo 12-21-2020 Albumin [Mass/Vol] 4.2 g/dL 3.5 - 5.2 g/dL [employer] Phone: Albumin/Globulin [Mass ratio] 1.4 {ratio} [employer] Phone: ALP [Catalytic activity/Vol] 74 U/L 35 - 104 U/L [employer] Work Phone: ALT [Catalytic activity/Vol] 9 U/L 5 - 33 U/L [employer] Phone: Anion gap [Moles/Vol] 11 mmol/L 9 - 17 mmol/L [employer] Phone: AST [Catalytic activity/Vol] 17 U/L <32 [employer] Phone: Bilirubin Ql (U) 0.46 mg/dL 0.3 - 1.2 mg/dL [employer] Phone: Bun/Cre Ratio NOT REPORTED [facility] Work Phone: Calcium [Mass/Vol] 9.6 mg/dL 8.6 - 10. 4 mg/dL [employer] Phone: Chloride [Moles/Vol] 106 mmol/L 98 - 10 7 mmol/L [employer] Phone: CO2 [Moles/Vol] 23 mmol/L 20 - 31 mmol/L [employer] Work Phone: Creatinine [Mass/Vol] 1 mg/dL High 0.50 - 0.90 mg/dL [employer] Phone: GFR >60 >60 mL/min [employer] Work Phone: GFR Non- 53 mL/min Low >60 [employer] Phone: GFR/1.73 sq M predicted among non-blacks MDRD (S/P/Bld) [Vol rate/Area] NOT REPORTED [employer] Phone: GFR/1.73 sq M predicted among non-blacks MDRD (S/P/Bld) [Vol rate/Area] [employer] Phone: Comment on above: Average GFR for 70 o r more years old: 75 mL/min/1.73sq m Chronic Kidney Disease: <60 mL/min/1.73sq m Kidney failure: <15 mL/min/1.73sq m eGFR calculated using average adult body mass. Additional eGFR calculator available at: http://www.Dune [employer]/MEDArchon_crcl_2011.htm Glucose [Mass/Vol] 85 mg/dL 70 - 99 mg/dL [employer] Phone: Interpretation and review of laboratory results Abnormal [employer] Phone: Potassium [Moles/Vol] 5.1 mmol/L 3.7 - 5.3 mmol/L [employer] Phone: Protein [Mass/Vol] 7.1 g/dL 6.4 - 8.3 g/dL [employer] Phone: Sodium [Moles/Vol] 140 mmol/L 135 - 144 mmol/L [employer] Phone: Urea nitrogen [Mass/Vol] 49 mg/dL High 8 - 23 mg/dL [employer] Phone: T4, Freeon 12-21-2020 Thyroxine, Free 1.16 ng/dL 0.93 - 1.70 ng/dL [employer] Phone: TSH without Reflexon 021 TSH Qn 3.08 m[IU]/L [employer] Phone: Lipid Panelon 10-21-2020 Cholesterol [Mass/Vol] 101 mg/dL <200 [place] Comment on above: Cholesterol Guidelines: <200 Desirable 200-240 Borderline >240 Undesirable Cholesterol in HDL [Mass/Vol] 46 mg/dL >40 [place] Comment on above: HDL Guidelines: <40 Undesirable 40-59 Borderline >59 Desirable Cholesterol in LDL [Mass/Vol] 45 mg/dL 0 - 130 mg/dL [place] Comment on above: LDL Guidelines: <100 Desirable 100-129 Near to/above Desirable 130-159 Borderline >159 Undesirable Direct (measured) LDL and calculated LDL are not interchangeable tests. Cholesterol in VLDL [Mass/Vol] NOT REPORTED 1 - 30 mg/dL [place] Cholesterol.total/Chol esterol in HDL [Mass ratio] 2.2 {ratio} <5 [place] Triglyceride [Mass/Vol] 51 mg/dL <150 [place] Comment on above: Triglyceride Guidelines: <150 Desirable 150-199 Borderline 200-499 High >499 Very high Based on AHA Guidelines for fasting triglyceride, July 2012. CBCon 06-17-2020 Erythrocyte distribution width (RBC) [Ratio] 14.6 % High 11.8 - 14.4 % [place] Hematocrit (Bld) [Volume fraction] 38.4 % 36.3 - 47.1 % [place] Hemoglobin (Bld) [Mass/Vol] 11.7 g/dL Low 11.9 - 15.1 g/dL [place] Interpretation and review of laboratory results Abnormal [place] MCH (RBC) [Entitic mass] 26.2 pg 25.2 - 33.5 pg [place] MCHC (RBC) [Mass/Vol] 30.5 g/dL 28.4 - 34.8 g/dL [place] MCV (RBC) [Entitic vol] 85.9 fL 82.6 - 102.9 fL [place] Platelet mean volume (Bld) [Entitic vol] 10.1 fL 8.1 - 13.5 fL [place] Platelets (Bld) [#/Vol] 169 10*3/uL [place] RBC (Bld) [#/Vol] 4.47 10*6/uL 3.95 - 5.1 1 m/uL [place] WBC (Bld) [#/Vol] 5.7 10*3/uL [place] WBC (Bld) [#/Vol] 0.0 10*3/uL 0.0 per 10 0 WBC [place] Comprehensive Metabolic Pane lfo 06-17-2020 Albumin [Mass/Vol] 4.2 g/dL 3.5 - 5.2 g/dL [place] Albumin/Globulin [Mass ratio] 1.6 {ratio} [place] ALP [Catalytic activity/Vol] 66 U/L 35 - 104 U/L [place] ALT [Catalytic activity/Vol] 8 U/L 5 - 33 U/L [place] Anion gap [Moles/Vol] 10 mmol/L 9 - 17 mmol/L [place] AST [Catalytic activity/Vol] 15 U/L <32 [place] Bilirubin Ql (U) 0.36 mg/dL 0.3 - 1.2 mg/dL [place] Bun/Cre Ratio NOT REPORTED [place] Calcium [Mass/Vol] 9.8 mg/dL 8.6 - 10. 4 mg/dL [place] Chloride [Moles/Vol] 107 mmol/L 98 - 10 7 mmol/L [place] CO2 [Moles/Vol] 24 mmol/L 20 - 31 mmol/L [place] Creatinine [Mass/Vol] 1.21 mg/dL High 0.5 - 0.9 mg/dL [place] GFR 52 mL/min Low >60 [place] GFR Non- 43 mL/min Low >60 [place] GFR/1.73 sq M predicted among non-blacks MDRD (S/P/Bld) [Vol rate/Area] NOT REPORTED [place] GFR/1.73 sq M predicted among non-blacks MDRD (S/P/Bld) [Vol rate/Area] [place] Comment on above: Average GFR for 70 o r more years old: 75 mL/min/1.73sq m Chronic Kidney Disease: <60 mL/min/1.73sq m Kidney failure: <15 mL/min/1.73sq m eGFR calculated using average adult body mass. Additional eGFR calculator available at: http://www.[employer]/multiple_crcl_2012.htm Glucose [Mass/Vol] 91 mg/dL 70 - 99 mg/dL [place] Interpretation and review of laboratory results Abnormal [place] Potassium [Moles/Vol] 5.6 mmol/L High 3.7 - 5.3 mmol/L [place] Protein [Mass/Vol] 6.9 g/dL 6.4 - 8.3 g/dL [place] Sodium [Moles/Vol] 141 mmol/L 135 - 144 mmol/L [place] Urea nitrogen [Mass/Vol] 38 mg/dL High 8 - 23 mg/dL [place] T4, Freeon 06-17-2020 Thyroxine, Free 1.11 ng/dL 0.93 - 1.7 ng/dL [place] TSH without Reflexon 020 TSH Qn 1.94 m[IU]/L [place] Lipid Panelon 04-22-2020 Cholesterol [Mass/Vol] 100 mg/dL <200 [place] Comment on above: Cholesterol Guidelines: <200 Desirable 200-240 Borderline >240 Undesirable Cholesterol in HDL [Mass/Vol] 43 mg/dL >40 [place] Comment on above: HDL Guidelines: <40 Undesirable 40-59 Borderline >59 Desirable Cholesterol in LDL [Mass/Vol] 43 mg/dL 0 - 130 mg/dL [place] Comment on above: LDL Guidelines: <100 Desirable 100-129 Near to/above Desirable 130-159 Borderline >159 Undesirable Direct (measured) LDL and calculated LDL are not interchangeable tests. Cholesterol in VLDL [Mass/Vol] NOT REPORTED 1 - 30 mg/dL [place] Cholesterol.total/Chol esterol in HDL [Mass ratio] 2.3 {ratio} <5 [place] Triglyceride [Mass/Vol] 70 mg/dL <150 [place] Comment on above: Triglyceride Guidelines: <150 Desirable 150-199 Borderline 200-499 High >499 Very high Based on AHA Guidelines for fasting triglyceride, July 2012. Vitamin B12on 02-17-2020 Cobalamin (Vitamin B12) [Mass/Vol] 1115 pg/mL 232 - 1245 pg/mL [place] CBCon 12-16-2019 Erythrocyte distribution width (RBC) [Ratio] 15.7 % High 11.8 - 14.4 % [place] Hematocrit (Bld) [Volume fraction] 35.5 % Low 36.3 - 47.1 % [place] Hemoglobin (Bld) [Mass/Vol] 10.8 g/dL Low 11.9 - 15.1 g/dL [place] Interpretation and review of laboratory results Abnormal [place] MCH (RBC) [Entitic mass] 26.0 pg 25.2 - 33.5 pg [place] MCHC (RBC) [Mass/Vol] 30.4 g/dL 28.4 - 34.8 g/dL [place] MCV (RBC) [Entitic vol] 85.5 fL 82.6 - 102.9 fL [place] Platelet mean volume (Bld) [Entitic vol] 10.0 fL 8.1 - 13.5 fL [place] Platelets (Bld) [#/Vol] 173 10*3/uL [place] RBC (Bld) [#/Vol] 4.15 10*6/uL 3.95 - 5.1 1 m/uL [place] WBC (Bld) [#/Vol] 5.8 10*3/uL [place] WBC (Bld) [#/Vol] 0.0 10*3/uL 0.0 per 10 0 WBC [place] Comprehensive Metabolic Pane flo 12-16-2019 Albumin [Mass/Vol] 3.9 g/dL 3.5 - 5.2 g/dL [place] Albumin/Globulin [Mass ratio] 1.3 {ratio} [place] ALP [Catalytic activity/Vol] 70 U/L 35 - 104 U/L [place] ALT [Catalytic activity/Vol] 9 U/L 5 - 33 U/L [place] Anion gap [Moles/Vol] 11 mmol/L 9 - 17 mmol/L [place] AST [Catalytic activity/Vol] 15 U/L <32 [place] Bilirubin Ql (U) 0.36 mg/dL 0.3 - 1.2 mg/dL [place] Bun/Cre Ratio NOT REPORTED [place] Calcium [Mass/Vol] 9.3 mg/dL 8.6 - 10. 4 mg/dL [place] Chloride [Moles/Vol] 105 mmol/L 98 - 10 7 mmol/L [place] CO2 [Moles/Vol] 23 mmol/L 20 - 31 mmol/L [place] Creatinine [Mass/Vol] 1.05 mg/dL High 0.5 - 0.9 mg/dL [place] GFR >60 >60 mL/min [place] GFR Non- 51 mL/min Low >60 [place] GFR/1.73 sq M predicted among non-blacks MDRD (S/P/Bld) [Vol rate/Area] NOT REPORTED [place] GFR/1.73 sq M predicted among non-blacks MDRD (S/P/Bld) [Vol rate/Area] [place] Comment on above: Average GFR for 70 o r more years old: 75 mL/min/1.73sq m Chronic Kidney Disease: <60 mL/min/1.73sq m Kidney failure: <15 mL/min/1.73sq m eGFR calculated using average adult body mass. Additional eGFR calculator available at: http://www.Antidot.Ongage/multiple_crcl_2012.htm Glucose [Mass/Vol] 94 mg/dL 70 - 99 mg/dL [place] Interpretation and review of laboratory results Abnormal [place] Potassium [Moles/Vol] 4.7 mmol/L 3.7 - 5.3 mmol/L [place] Protein [Mass/Vol] 6.9 g/dL 6.4 - 8.3 g/dL [place] Sodium [Moles/Vol] 139 mmol/L 135 - 144 mmol/L [place] Urea nitrogen [Mass/Vol] 36 mg/dL High 8 - 23 mg/dL [place] T4, Freeon 12-16-2019 Thyroxine, Free 1.16 ng/dL 0.93 - 1.7 ng/dL [place] TSH without Reflexon 020 TSH Qn 2.29 m[IU]/L [place] Basic Metabolic Panelon 06-07 Anion gap [Moles/Vol] 13 mmol/L 9 - 17 mmol/L [place] Bun/Cre Ratio NOT REPORTED [place] Calcium [Mass/Vol] 9.6 mg/dL 8.6 - 10. 4 mg/dL [place] Chloride [Moles/Vol] 106 mmol/L 98 - 10 7 mmol/L [place] CO2 [Moles/Vol] 22 mmol/L 20 - 31 mmol/L [place] Creatinine [Mass/Vol] 1.09 mg/dL High 0.5 - 0.9 mg/dL [place] GFR 59 mL/min Low >60 [place] GFR Non- 48 mL/min Low >60 [place] GFR/1.73 sq M predicted among non-blacks MDRD (S/P/Bld) [Vol rate/Area] NOT REPORTED [place] GFR/1.73 sq M predicted among non-blacks MDRD (S/P/Bld) [Vol rate/Area] [place] Comment on above: Average GFR for 70 o r more years old: 75 mL/min/1.73sq m Chronic Kidney Disease: <60 mL/min/1.73sq m Kidney failure: <15 mL/min/1.73sq m eGFR calculated using average adult body mass. Additional eGFR calculator available at: http://www.[employer]/multiple_crcl_2012.htm Glucose [Mass/Vol] 79 mg/dL 70 - 99 mg/dL [place] Interpretation and review of laboratory results Abnormal [place] Potassium [Moles/Vol] 4.8 mmol/L 3.7 - 5.3 mmol/L [place] Sodium [Moles/Vol] 141 mmol/L 135 - 144 mmol/L [place] Urea nitrogen [Mass/Vol] 29 mg/dL High 8 - 23 mg/dL [place] CBCon 06-24-2019 Erythrocyte distribution width (RBC) [Ratio] 15.0 % High 11.8 - 14.4 % [place] Hematocrit (Bld) [Volume fraction] 36.6 % 36.3 - 47.1 % [place] Hemoglobin (Bld) [Mass/Vol] 10.7 g/dL Low 11.9 - 15.1 g/dL [place] Interpretation and review of laboratory results Abnormal [place] MCH (RBC) [Entitic mass] 26.2 pg 25.2 - 33.5 pg [place] MCHC (RBC) [Mass/Vol] 29.2 g/dL 28.4 - 34.8 g/dL [place] MCV (RBC) [Entitic vol] 89.5 fL 82.6 - 102.9 fL [place] Platelet mean volume (Bld) [Entitic vol] 9.8 fL 8.1 - 13.5 fL [place] Platelets (Bld) [#/Vol] 227 10*3/uL [place] RBC (Bld) [#/Vol] 4.09 10*6/uL 3.95 - 5.1 1 m/uL [place] WBC (Bld) [#/Vol] 0.0 10*3/uL 0.0 per 10 0 WBC [place] WBC (Bld) [#/Vol] 6.0 10*3/uL [place] PROTHROMBIN TIMEon 9 INR Coag (PPP) [Relative time] 2.57 {INR} High 0.91-1.[address] [facility] Comment on above: Order Comment: Rene perdue Result Comment: ACCC P RECOMMENDED INR FOR WARFARIN THERAPY --------- ------- CONDITION INR PROPHYLAXIS OF VENOUS THROMBOSIS 2-3 (HIGH-RISK SURGERY) TREATMENT OF VENOUS THROMBOSIS 2-3 TREATMENT OF PULMONARY EMBOLISM 2-3 PREVENTION OF SYSTEMIC EMBOLISM: 2-3 ACUTE MYOCARDIAL INFARCTION TISSUE HEART VALVES VALVULAR HEART DISEASE ATRIAL FIBRILLATION RECURRENT SYSTEMIC EMBOLISM MECHANICAL HEART VALVE 2.5-3.5 FROM: ORAL ANTICOAGULANTS. MECHANISM OF ACTION, CLINICAL EFFECTIVENESS, AND OPTIMAL THERAPEUTIC RANGE. CHEST 1995;108:231S-246S. Performed By: #### [id number], [id number] #### [facility] [address] [place] [address], [facility] PT Coag (PPP) [Time] 28.1 s High 12.3-14.[address] [facility] Comment on above: Order Comment: Rene wn Result Comment: ALL RESULTS MUST BE INTERPRETED WITH RESPECT TO BLOOD DRAWING ARTIFACT OR DILUTION ERROR OF ANTICOAGULANT AT THE TIME OF SAMPLING. Performed By: #### [id number] #### [facility] [address] [place] [address], [facility] BASIC METABOLIC PANELon 08-0 Calcium [Mass/Vol] 9.8 mg/dL Normal 8.6-10.[address] [facility] Comment on above: Order Comment: No: D o not add to previous draw Performed By: #### [id number], [id number] #### [facility] [address] [place] [address], [facility] Chloride [Moles/Vol] 111 mmol/L High 98-[address] [facility] Comment on above: Order Comment: No: D o not add to previous draw Performed By: #### 5 [id number], [id number] #### [facility] [address] [place] [address], [place] CO2 [Moles/Vol] 23 mmol/L Normal 21-[address] [facility] Comment on above: Order Comment: No: D o not add to previous draw Performed By: #### 5 [id number], [id number] #### [facility] [address] [place] [address], [place] Creatinine [Mass/Vol] 1.08 mg/dL Normal 0.60-1.[address] [facility] Comment on above: Order Comment: No: D o not add to previous draw Performed By: #### 5 [id number], [id number] #### [facility] [address] [place] [address], [place] GFR/1.73 sq M predicted among blacks MDRD (S/P/Bld) [Vol rate/Area] 59 ml/min/1.73sq m Abnormal >[address] [facility] Comment on above: Order Comment: No: D o not add to previous draw Result Comment: Calc ulation may not be valid for patients over 70 years Performed By: #### 5 6101, 07218 #### [facility] [address] [place] [address], [place] GFR/1.73 sq M predicted among non-blacks MDRD (S/P/Bld) [Vol rate/Area] 49 ml/min/1.73sq m Abnormal >[address] [facility] Comment on above: Order Comment: No: D o not add to previous draw Result Comment: Calc ulation may not be valid for patients over 70 years Performed By: #### 5 6101, 41740 #### [facility] [address] [place] [address], [place] Glucose [Mass/Vol] 95 mg/dL Normal 70-[address] [facility] Comment on above: Order Comment: No: D o not add to previous draw Performed By: #### 5 610, 19606 #### [facility] [address] [place] [address], [place] Potassium [Moles/Vol] 4.3 mmol/L Normal 3.5-5.[address] [facility] Comment on above: Order Comment: No: D o not add to previous draw Performed By: #### 5 610, 13709 #### [facility] [address] [place] [address], [place] Sodium [Moles/Vol] 140 mmol/L Normal 136-[address] [facility] Comment on above: Order Comment: No: D o not add to previous draw Performed By: #### 5 610, 06252 #### [facility] [address] [place] [address], [place] Urea nitrogen [Mass/Vol] 23 mg/dL Normal 7-[address] [facility] Comment on above: Order Comment: No: D o not add to previous draw Performed By: #### 5 610, 13770 #### [facility] [address] [place] [address], [place] CBC COMPLETE BLOOD COUNTon 0 - Erythrocyte distribution width (RBC) [Ratio] 14.1 % Normal 11.5-15.[address] [facility] Comment on above: Order Comment: No: D o not add to previous draw Performed By: #### 5 610, 78037 #### [facility] [address] [place] [address], [place] Hematocrit (Bld) [Volume fraction] 38.9 % Normal 36.0-45.[address] [facility] Comment on above: Order Comment: No: D o not add to previous draw Performed By: #### 5 610, 09303 #### [facility] [address] [place] [address], [place] Hemoglobin (Bld) [Mass/Vol] 12.3 g/dL Normal 12.0-15.[address] [facility] Comment on above: Order Comment: No: D o not add to previous draw Performed By: #### 5 610, 47933 #### [facility] [address] [place] [address], [facility] MCH (RBC) [Entitic mass] 27.1 pg Normal 27.0-33.[address] [facility] Comment on above: Order Comment: No: D o not add to previous draw Performed By: #### 5 6100, 30311 #### [facility] [address] [place] [address], [facility] MCHC (RBC) [Mass/Vol] 31.6 g/dL Low 32.0-35.[address] [facility] Comment on above: Order Comment: No: D o not add to previous draw Performed By: #### 5 610, 17629 #### [facility] [address] [place] [address], [facility] MCV (RBC) [Entitic vol] 85.7 fL Normal 82.0-98.[address] [facility] Comment on above: Order Comment: No: D o not add to previous draw Performed By: #### 5 6100, 48032 #### [facility] [address] [facility] [place] [address], [facility] Nucleated RBC/100 WBC (Bld) [Ratio] 0 % Normal 0-[address] [facility] Comment on above: Order Comment: No: D o not add to previous draw Performed By: #### 5 6100, 75456 #### [facility] [address] [place] [address], [facility] PLAT CNT 202 10*3/uL Normal 150-[address] [facility] Comment on above: Order Comment: No: D o not add to previous draw Performed By: #### 5 610, 37918 #### [facility] [address] [place] [address], [facility] RBC (Bld) [#/Vol] 4.54 10*6/uL Normal 3.80-5.[address] [facility] Comment on above: Order Comment: No: D o not add to previous draw Performed By: #### 5 6101, 00441 #### [facility] [address] [facility] [place] [address], [facility] WBC (Bld) [#/Vol] 6.18 10*3/uL Normal 4.00-10.[address] [facility] Comment on above: Order Comment: No: D o not add to previous draw Performed By: #### 5 6101, 34133 #### [facility] [address] MAGNESIUM BLOODon 05-10-2019 Magnesium [Mass/Vol] 1.8 mg/dL Low 1.9-2.[address] [facility] Comment on above: Order Comment: No: D o not add to previous draw Performed By: #### 5 6101, 51441 #### [facility] [address] [facility] [place] [address], [facility] PHOSPHORUS BLOODon 9 Phosphate [Mass/Vol] 2.9 mg/dL Normal 2.5-5.[address] [facility] Comment on above: Order Comment: No: D o not add to previous draw Performed By: #### 5 6101, 59510 #### [facility] [address] PROTHROMBIN TIMEon 9 INR Coag (PPP) [Relative time] 2.36 {INR} High 0.91-1.[address] [facility] Comment on above: Order Comment: Unkno wn Result Comment: ACCC P RECOMMENDED INR FOR WARFARIN THERAPY --------- ------- CONDITION INR PROPHYLAXIS OF VENOUS THROMBOSIS 2-3 (HIGH-RISK SURGERY) TREATMENT OF VENOUS THROMBOSIS 2-3 TREATMENT OF PULMONARY EMBOLISM 2-3 PREVENTION OF SYSTEMIC EMBOLISM: 2-3 ACUTE MYOCARDIAL INFARCTION TISSUE HEART VALVES VALVULAR HEART DISEASE ATRIAL FIBRILLATION RECURRENT SYSTEMIC EMBOLISM MECHANICAL HEART VALVE 2.5-3.5 FROM: ORAL ANTICOAGULANTS. MECHANISM OF ACTION, CLINICAL EFFECTIVENESS, AND OPTIMAL THERAPEUTIC RANGE. CHEST 1995;108:231S-246S. Performed By: #### 5 6101, 56953 #### [facility] [address] [place] [address], [facility] PT Coag (PPP) [Time] 26.2 s High 12.3-14.[address] [facility] Comment on above: Order Comment: Unkno wn Result Comment: ALL RESULTS MUST BE INTERPRETED WITH RESPECT TO BLOOD DRAWING ARTIFACT OR DILUTION ERROR OF ANTICOAGULANT AT THE TIME OF SAMPLING. Performed By: #### 5 6101, 73773 #### [facility] [address] [place] [address], [facility] BASIC METABOLIC PANELon 08-0 Calcium [Mass/Vol] 9.2 mg/dL Normal 8.6-10.[address] [facility] Comment on above: Order Comment: Joieo wn Performed By: #### 5 6101, 62452 #### [facility] [address] [place] [address], [facility] Chloride [Moles/Vol] 111 mmol/L High 98-[address] [facility] Comment on above: Order Comment: Unkno wn Performed By: #### 5 6101, 00943 #### [facility] [address] [place] [address], [facility] CO2 [Moles/Vol] 25 mmol/L Normal 21-[address] [facility] Comment on above: Order Comment: Unkno wn Performed By: #### 5 6101, 06659 #### [facility] [address] [place] [address], [facility] Creatinine [Mass/Vol] 1.01 mg/dL Normal 0.60-1.[address] [facility] Comment on above: Order Comment: Unkno wn Performed By: #### 5 610, 47626 #### [facility] [address] [place] [address], [place] GFR/1.73 sq M predicted among blacks MDRD (S/P/Bld) [Vol rate/Area] mL/min/{1.73_m2} Normal >[address] [facility] Comment on above: Order Comment: Unkno wn Result Comment: Calc ulation may not be valid for patients over 70 years Performed By: #### 5 610, 08533 #### [facility] [address] [place] [address], [place] GFR/1.73 sq M predicted among non-blacks MDRD (S/P/Bld) [Vol rate/Area] 53 ml/min/1.73sq m Abnormal >[address] [facility] Comment on above: Order Comment: Unkno wn Result Comment: Calc ulation may not be valid for patients over 70 years Performed By: #### 5 6100, 96446 #### [facility] [address] [place] [address], [place] Glucose [Mass/Vol] 91 mg/dL Normal 70-[address] [facility] Comment on above: Order Comment: Unkno wn Performed By: #### 5 6100, 50517 #### [facility] [address] [place] [address], [place] Potassium [Moles/Vol] 4.4 mmol/L Normal 3.5-5.[address] [facility] Comment on above: Order Comment: Unkno wn Performed By: #### 5 610, 86677 #### [facility] [address] [place] [address], [place] Sodium [Moles/Vol] 139 mmol/L Normal 136-[address] [facility] Comment on above: Order Comment: Unkno wn Performed By: #### 5 610, 20484 #### [facility] [address] [place] [address], [facility] Urea nitrogen [Mass/Vol] 28 mg/dL High 7-[address] [facility] Comment on above: Order Comment: Unkno wn Performed By: #### 5 610, 52782 #### [facility] [address] [place] [id number], [facility] CBC W/DIFFon 05-09-2019 ABS BASOPHILS 0.1 10*3/uL Normal 0.0-0.[address] [facility] Comment on above: Order Comment: Unkno wn Performed By: #### 5 6100, 63925 #### [facility] [address] [facility] [place] [address], [facility] ABS IMM GRANS 0.0 10*3/uL Normal 0.0-0.[address] [facility] Comment on above: Order Comment: Unkno wn Performed By: #### 5 6100, 27065 #### [facility] [address] [facility] [place] [address], [facility] ABS NEUTROPHILS 2.2 10*3/uL Normal 1.6-7.[address] [facility] Comment on above: Order Comment: Unkno wn Performed By: #### 5 6100, 50879 #### [facility] [address] [place] [address], [facility] Basophils/100 WBC (Bld) 1.0 % Normal 0.0-1.[address] [facility] Comment on above: Order Comment: Unkno wn Performed By: #### 5 6100, 50555 #### [facility] [address] [place] [address], [facility] Eosinophils (Bld) [#/Vol] 0.2 10*3/uL Normal 0.0-0.[address] [facility] Comment on above: Order Comment: Unkno wn Performed By: #### 5 6100, 01077 #### [facility] [address] [place] [address], [facility] Eosinophils/100 WBC (Bld) 4.0 % Normal 0.0-6.[address] [facility] Comment on above: Order Comment: Unkno wn Performed By: #### 5 6100, 90416 #### [facility] [address] [place] [address], [facility] Erythrocyte distribution width (RBC) [Ratio] 14.5 % Normal 11.5-15.[address] [facility] Comment on above: Order Comment: Unkno wn Performed By: #### 5 6100, 62580 #### [facility] [address] [place] [address], [facility] Hematocrit (Bld) [Volume fraction] 39.1 % Normal 36.0-45.[address] [facility] Comment on above: Order Comment: Unkno wn Performed By: #### 5 6100, 24714 #### [facility] [address] Hemoglobin (Bld) [Mass/Vol] 11.9 g/dL Low 12.0-15.[address] [facility] Comment on above: Order Comment: Unkno wn Performed By: #### 5 6100, 44363 #### [facility] [address] [facility] [place] [address], [facility] IMMATURE GRANS 0.2 % Normal 0.0-1.[address] [facility] Comment on above: Order Comment: Unkno wn Performed By: #### 5 6100, 43104 #### [facility] [address] [facility] [place] [address], [facility] Lymphocytes (Bld) [#/Vol] 2.1 10*3/uL Normal 1.2-4.[address] [facility] Comment on above: Order Comment: Unkno wn Performed By: #### 5 6100, 36444 #### [facility] [address] [place] [address], [facility] Lymphocytes/100 WBC (Bld) 42.0 % Normal 20.0-45.[address] [facility] Comment on above: Order Comment: Unkno wn Performed By: #### 5 6100, 55366 #### [facility] [address] [place] [address], [facility] MCH (RBC) [Entitic mass] 27.2 pg Normal 27.0-33.[address] [facility] Comment on above: Order Comment: Unkno wn Performed By: #### 5 6100, 16209 #### [facility] [address] [place] [address], [facility] MCHC (RBC) [Mass/Vol] 30.4 g/dL Low 32.0-35.[address] [facility] Comment on above: Order Comment: Unkno wn Performed By: #### 5 6100, 06354 #### [facility] [address] [place] [address], [facility] MCV (RBC) [Entitic vol] 89.5 fL Normal 82.0-98.[address] [facility] Comment on above: Order Comment: Unkno wn Performed By: #### 5 6100, 89273 #### [facility] [address] [facility] [place] [address], [facility] Monocytes (Bld) [#/Vol] 0.5 10*3/uL Normal 0.1-1.[address] [facility] Comment on above: Order Comment: Unkno wn Performed By: #### 5 6100, 87023 #### [facility] [address] [place] [address], [facility] MONOS 9.1 % Normal 5.0-12.[address] [facility] Comment on above: Order Comment: Unkno wn Performed By: #### 5 6100, 81204 #### [facility] [address] [place] [address], [facility] Neutrophils/100 WBC (Bld) 43.7 % Normal 40.0-72.[address] [facility] Comment on above: Order Comment: Unkno wn Performed By: #### 5 6100, 84855 #### [facility] [address] [place] [address], [facility] Nucleated RBC/100 WBC (Bld) [Ratio] 0 % Normal 0-[address] [facility] Comment on above: Order Comment: Unkno wn Performed By: #### 5 610, 09066 #### [facility] [address] [place] [id number], [facility] PLAT CNT 189 10*3/uL Normal 150-[address] [facility] Comment on above: Order Comment: Unkno wn Performed By: #### 5 610, 09101 #### [facility] [address] [facility] [place] [address], [facility] RBC (Bld) [#/Vol] 4.37 10*6/uL Normal 3.80-5.[address] [facility] Comment on above: Order Comment: Unkno wn Performed By: #### 5 610, 67164 #### [facility] [address] [facility] [place] [address], [facility] WBC (Bld) [#/Vol] 5.05 10*3/uL Normal 4.00-10.[address] [facility] Comment on above: Order Comment: Unkno wn Performed By: #### 5 610, 35091 #### [facility] [address] [facility] [place] [address], [facility] MAGNESIUM BLOODon 05-09-2019 Magnesium [Mass/Vol] 1.9 mg/dL Normal 1.9-2.[address] [facility] Comment on above: Order Comment: Unkno wn Performed By: #### 5 610, 34806 #### [facility] [address] [facility] [place] [address], [facility] PHOSPHORUS BLOODon 9 Phosphate [Mass/Vol] 3.2 mg/dL Normal 2.5-5.[address] [facility] Comment on above: Order Comment: Unkno wn Performed By: #### 5 610, 39609 #### [facility] [address] PROTHROMBIN TIMEon 9 INR Coag (PPP) [Relative time] 3.08 {INR} High 0.91-1.[address] [facility] Comment on above: Order Comment: Crite lynne for reflexing a culture was not met. Please call the lab at [phone] within 24 hours of collection time if culture is needed Result Comment: ACCC P RECOMMENDED INR FOR WARFARIN THERAPY --------- ------- CONDITION INR PROPHYLAXIS OF VENOUS THROMBOSIS 2-3 (HIGH-RISK SURGERY) TREATMENT OF VENOUS THROMBOSIS 2-3 TREATMENT OF PULMONARY EMBOLISM 2-3 PREVENTION OF SYSTEMIC EMBOLISM: 2-3 ACUTE MYOCARDIAL INFARCTION TISSUE HEART VALVES VALVULAR HEART DISEASE ATRIAL FIBRILLATION RECURRENT SYSTEMIC EMBOLISM MECHANICAL HEART VALVE 2.5-3.5 FROM: ORAL ANTICOAGULANTS. MECHANISM OF ACTION, CLINICAL EFFECTIVENESS, AND OPTIMAL THERAPEUTIC RANGE. CHEST 1995;108:231S-246S. Performed By: #### 3 0965 #### [facility] [address] [place] [address], [facility] PT Coag (PPP) [Time] 32.5 s High 12.3-14.[address] [facility] Comment on above: Order Comment: Crite lynne for reflexing a culture was not met. Please call the lab at [phone] within 24 hours of collection time if culture is needed Result Comment: ALL RESULTS MUST BE INTERPRETED WITH RESPECT TO BLOOD DRAWING ARTIFACT OR DILUTION ERROR OF ANTICOAGULANT AT THE TIME OF SAMPLING. Performed By: #### 3 0965 #### [facility] [address] [place] [address], [facility] APTTon 05-08-2019 aPTT Coag (Bld) [Time] 39.3 s High 25.0-35.[address] [facility] Comment on above: Order Comment: if no t already done No: Do not add to previous draw Regime for 0500 per RN Isai @ 0206 Spoke to him directly ss Result Comment: ALL RESULTS MUST BE INTERPRETED WITH RESPECT TO BLOOD DRAWING ARTIFACT OR DILUTION ERROR OF ANTICOAGULANT AT THE TIME OF SAMPLING. THE APTT SHOULD NOT BE USED TO MONITOR UNFRACTIONATED HEPARIN THERAPY, THIS LABORATORY NO LONGER HAS AN ESTABLISHED THERAPEUTIC RANGE BASED ON THE APTT. IT IS RECOMMENDED THAT THE [facility] - HEPARIN ASSAY (ANTI-XA ACTIVITY) BE USED FOR THIS PURPOSE. Performed By: #### 5 7307, 85773 #### [facility] [address] [place] BASIC METABOLIC PANELon 08-0 -2018 Calcium [Mass/Vol] 9.5 mg/dL Normal 8.6-10.[address] [facility] Comment on above: Order Comment: Crite lynne for reflexing a culture was not met. Please call the lab at [phone] within 24 hours of collection time if culture is needed Performed By: #### 3 0965 #### [facility] [address] [place] [address], [facility] Chloride [Moles/Vol] 111 mmol/L High 98-[address] [facility] Comment on above: Order Comment: Crite lynne for reflexing a culture was not met. Please call the lab at [phone] within 24 hours of collection time if culture is needed Performed By: #### 3 0965 #### [facility] [address] [place] [address], [facility] CO2 [Moles/Vol] 17 mmol/L Low 21-[address] [facility] Comment on above: Order Comment: Crite lynne for reflexing a culture was not met. Please call the lab at [phone] within 24 hours of collection time if culture is needed Performed By: #### 3 0965 #### [facility] [address] [place] [address], [facility] Creatinine [Mass/Vol] 1.45 mg/dL High 0.60-1.[address] [facility] Comment on above: Order Comment: Crite lynne for reflexing a culture was not met. Please call the lab at [phone] within 24 hours of collection time if culture is needed Performed By: #### 3 0965 #### [facility] [address] [place] [address], [facility] GFR/1.73 sq M predicted among blacks MDRD (S/P/Bld) [Vol rate/Area] 42 ml/min/1.73sq m Abnormal >[address] [facility] Comment on above: Order Comment: Crite lynne for reflexing a culture was not met. Please call the lab at [phone] within 24 hours of collection time if culture is needed Result Comment: Calc ulation may not be valid for patients over 70 years Performed By: #### 3 0965 #### [facility] [address] [place] [address], [facility] GFR/1.73 sq M predicted among non-blacks MDRD (S/P/Bld) [Vol rate/Area] 35 ml/min/1.73sq m Abnormal >[address] [facility] Comment on above: Order Comment: Crite lynne for reflexing a culture was not met. Please call the lab at [phone] within 24 hours of collection time if culture is needed Result Comment: Calc ulation may not be valid for patients over 70 years Performed By: #### 3 0965 #### [facility] [address] [place] [address], [facility] Glucose [Mass/Vol] 74 mg/dL Normal 70-[address] [facility] Comment on above: Order Comment: Crite lynne for reflexing a culture was not met. Please call the lab at [phone] within 24 hours of collection time if culture is needed Performed By: #### 3 0965 #### [facility] [address] [place] [address], [facility] Potassium [Moles/Vol] 4.6 mmol/L Normal 3.5-5.[address] [facility] Comment on above: Order Comment: Crite lynne for reflexing a culture was not met. Please call the lab at [phone] within 24 hours of collection time if culture is needed Performed By: #### 3 0965 #### [facility] [address] [place] [address], [facility] Sodium [Moles/Vol] 142 mmol/L Normal 136-[address] [facility] Comment on above: Order Comment: Crite lynne for reflexing a culture was not met. Please call the lab at [phone] within 24 hours of collection time if culture is needed Performed By: #### 3 0965 #### [facility] [address] Urea nitrogen [Mass/Vol] 43 mg/dL High 7-[address] [facility] Comment on above: Order Comment: Crite lynne for reflexing a culture was not met. Please call the lab at [phone] within 24 hours of collection time if culture is needed Performed By: #### 3 0965 #### [facility] [address] [facility]. [address] CREATININE URINE RANDOMon Creatinine [Mass/Vol] 131.0 mg/dL Normal Th e [facility] Comment on above: Order Comment: Crite lynne for reflexing a culture was not met. Please call the lab at [phone] within 24 hours of collection time if culture is needed Result Comment: Ther e are no established reference values for random urine specimens Performed By: #### 3 0965 #### [facility] [address] [facility]. [address] History and Physicalon 05-08 History and Physical MR#: [id number] [facility] Pt. Name: Constanza Wilson Admitted: 05/08/2019 Date of : 1940 Attending Physician: Kyler Jerez MD Room #: [id number] Discharge Date: HISTORY AND PHYSICAL CHIEF COMPLAINT: Anxiety/panic attack. HISTORY OF PRESENT ILLNESS: This is a 79-year-old female, from a nursing facility, who was sent over to the emergency department for evaluation after she reportedly had an anxiety and panic attack. The staff there wanted her to have a psychiatric evaluation. The patient is accompanied by her son. He states that the patient has been having memory issues and has been declining for quite sometime. She used to live independently in [place]. He brought over to the [facility] after she agreed to move here and she was placed into an extended care facility. She has just been there for short while. The staff have been calling the patient's son every night stating that she tells them she is anxious and she is having panic attacks. He has been going there to calm her down every night. She was seen by Psychiatry in the ER and they are recommending admission to [facility]; however, on her lab workup, her creatinine was elevated and there is no previous records to compare with. The patient's son states that he is not aware of her having kidney disease. The patient denies fever, chills, cough, chest pain, shortness of breath, abdominal pain, nausea, vomiting, melena, rectal bleeding, dysuria, frequency, or urgency. PAST MEDICAL HISTORY: Atrial fibrillation, on Coumadin; hypertension, hypothyroidism, hyperlipidemia. PAST SURGICAL HISTORY: No major surgeries. HOME MEDICATIONS: Ibuprofen 600 mg p.o. every 6 hours p.r.n., acetaminophen 650 mg p.o. every 6 hours p.r.n., amlodipine 5 mg p.o. at bedtime, levothyroxine 100 mcg p.o. daily, warfarin 6 mg p.o. at bedtime, simvastatin 20 mg p.o. at bedtime, metoprolol succinate 25 mg p.o. daily, lisinopril 30 mg p.o. daily. ALLERGIES: Hydrocodone. SOCIAL HISTORY: She is a former smoker. She does not drink any alcohol. No recreational drug use. She presently lives in an extended care facility. FAMILY HISTORY: Noncontributory. REVIEW OF SYSTEMS: A 14-point review of systems obtained, all pertinent positives and negatives have been mentioned in the history of present illness. Remainder of the systems are otherwise negative. PHYSICAL EXAMINATION: GENERAL APPEARANCE: The patient is an elderly female. She is awake, alert. Appears comfortable. She is pleasant, but confused. VITAL SIGNS: Temperature 98.6, heart rate 83, respiratory rate 16, blood pressure 134/67, saturating 100% on room air. EYES: Pupils are equal, round, and reactive to light and accommodation. Extraocular muscles are intact. No conjunctival pallor. ENMT: External appearance of ears unremarkable. Hearing is normal. Mucous membranes are moist. No other abnormalities in oropharynx. NECK: Supple. No cervical adenopathy. No JVD. RESPIRATORY: Lungs are clear to auscultation. Normal respiratory effort. CARDIOVASCULAR: Normal heart sounds. Regular rate and rhythm. No murmurs. Peripheral pulses palpable and symmetric. ABDOMEN: Soft, nontender. Bowel sounds normal. No guarding or rebound tenderness. EXTREMITIES: No edema in bilateral lower extremities. No varicosities. SKIN: No rashes or lesions. Skin is warm and dry. PSYCHIATRIC: The patient's recent and remote memory are poor. She is alert and oriented to person only, not to place or time. LAB STUDIES: CBC; WBC 6.93, hemoglobin 12.9, hematocrit 42.4, platelet count 197. Troponin-I 0.01. PT 34.7, INR 3.35, APTT 44.8. Alcohol level, none. Troponin-I 0.01. Urinalysis; leukocyte esterase is trace positive, nitrates negative, 3 to 5 wbcs seen. Urine tox panel negative. BMP; sodium 138, potassium 5.2, chloride 107, bicarb 20, BUN 48, creatinine 1.70, calcium 10.0, glucose 96. Chest x-ray radiology read of no acute abnormalities. ASSESSMENT AND PLAN: 1. Elevated creatinine: Acute kidney injury vs chronic kidney disease. Unclear what her baseline creatinine is. We will hydrate her with gentle IV fluids. Order urine studies, renal ultrasound for further evaluation. Repeat creatinine level. We will hold nephrotoxic medications. 2. Atrial fibrillation: On anticoagulation. The patient is on warfarin. INR is elevated. Hold warfarin for tonight. Request pharmacy consult for warfarin management. 3. Dementia with behavioral disturbances: The patient has had a Psych evaluation. She will likely need [facility] admission after she is medically stable. 4. Hypothyroidism: Continue the patient's Synthroid. 5. Hypertension: The patient's blood pressure is stable. Continue the patient's amlodipine and Toprol. 6. Hyperlipidemia. Continue the patient on her simvastatin. 7. DVT prophylaxis: The patient will not require any pharmacological DVT prophylaxis given that she is already on warfarin. 8. Diet: The patient will have cardiac diet. 9. Advanced directives. The patient is full code. Electronically Signed by: Kyler Jerez MD 05/25/2019 10:40 P Kyler Jerez MD Date Dict: 05/08/2019/02:23 A/Kyler Jerez MD Date Trans: 05/08/2019 02:53 A/mmo [id number] Normal [facility] LIVER BATTERYon 05-08-2019 Albumin [Mass/Vol] 4.1 g/dL Normal 3.5-5.[address] [facility] Comment on above: Performed By: #### 3 0965 #### [facility] [address] [place] [address], [facility] ALKALINE PHOSPH 52 IU/L Normal 34-[address] [facility] Comment on above: Performed By: #### 3 0965 #### [facility] [address] [place] [address], [facility] ALT [Catalytic activity/Vol] 10 U/L Normal 7-[address] [facility] Comment on above: Performed By: #### 3 0965 #### [facility] [address] [facility] [place] [address], [facility] AST [Catalytic activity/Vol] 20 U/L Normal 13-[address] [facility] Comment on above: Performed By: #### 3 0965 #### [facility] [address] [place] [address], [facility] Bilirubin [Mass/Vol] 0.8 mg/dL Normal 0.3-1.[address] [facility] Comment on above: Performed By: #### 3 0965 #### [facility] [address] [place] [address], [facility] Bilirubin.direct [Mass/Vol] 0.2 mg/dL Normal 0.0-0.[address] [facility] Comment on above: Performed By: #### 3 0965 #### [facility] [address] Protein [Mass/Vol] 6.6 g/dL Normal 6.0-8.[address] [facility] Comment on above: Performed By: #### 3 0965 #### [facility] [address] PROTHROMBIN TIMEon 9 INR Coag (PPP) [Relative time] 2.95 {INR} High 0.91-1.[address] [facility] Comment on above: Order Comment: Crite lynne for reflexing a culture was not met. Please call the lab at [phone] within 24 hours of collection time if culture is needed Result Comment: ACCC P RECOMMENDED INR FOR WARFARIN THERAPY --------- ------- CONDITION INR PROPHYLAXIS OF VENOUS THROMBOSIS 2-3 (HIGH-RISK SURGERY) TREATMENT OF VENOUS THROMBOSIS 2-3 TREATMENT OF PULMONARY EMBOLISM 2-3 PREVENTION OF SYSTEMIC EMBOLISM: 2-3 ACUTE MYOCARDIAL INFARCTION TISSUE HEART VALVES VALVULAR HEART DISEASE ATRIAL FIBRILLATION RECURRENT SYSTEMIC EMBOLISM MECHANICAL HEART VALVE 2.5-3.5 FROM: ORAL ANTICOAGULANTS. MECHANISM OF ACTION, CLINICAL EFFECTIVENESS, AND OPTIMAL THERAPEUTIC RANGE. CHEST 1995;108:231S-246S. Performed By: #### 3 0965 #### [facility] [address] PT Coag (PPP) [Time] 31.4 s High 12.3-14.[address] [facility] Comment on above: Order Comment: Crite lynne for reflexing a culture was not met. Please call the lab at [phone] within 24 hours of collection time if culture is needed Result Comment: ALL RESULTS MUST BE INTERPRETED WITH RESPECT TO BLOOD DRAWING ARTIFACT OR DILUTION ERROR OF ANTICOAGULANT AT THE TIME OF SAMPLING. Performed By: #### 3 0965 #### [address] [place] [address], [facility] SODIUM URINE RANDOMon 2018 Sodium (U) [Moles/Vol] 149 mmol/L Normal Th e [facility] Comment on above: Order Comment: Crite lynne for reflexing a culture was not met. Please call the lab at [phone] within 24 hours of collection time if culture is needed Result Comment: Ther e are no established reference values for random urine specimens Performed By: #### 3 0965 #### [address] TROPONIN-Ion 05-08-2019 Troponin I.cardiac [Mass/Vol] 0.01 ng/mL Normal 0.00-0.[address] [facility] Comment on above: Order Comment: at 22 20 Result Comment: REFE RENCE RANGES: 0.00 - 0.04 ng/ml NORMAL 0.05 - 0.50 ng/ml INDETERMINATE > 0.50 ng/ml CONSISTENT WITH AN M.I. Performed By: #### 3 5200 #### [place] [address], [facility] TSH3on 05-08-2019 TSH 3RD GENERATION 3.90 uIU/mL Normal 0.34-5.[address] [facility] Comment on above: Order Comment: Crite lynne for reflexing a culture was not met. Please call the lab at [phone] within 24 hours of collection time if culture is needed Performed By: #### 3 0965 #### [address] [address], [facility] US RENALon 05-08-[address] [facility] Department of Radiology [address] [place] [id number] Patient Name: CONSTANZA WILSON : 1940 Sex: F Age: Race: White Pt. Location: [id number] Patient Status: O Ordered Date: 05/08/2019 2:25:00 AM Completed Date: 05/08/2019 08:52 AM Requesting Provider: KYLER JEREZ Attending Provider: DEANA BRIDGES Report Copy To: Signs & Symptoms: Increased Creatinine History: See Comments Comments: R/O Hydronephrosis Exam: US RENAL US RENAL 05/08/2019 8:52 AM EDT SIGNS AND SYMPTOMS: Increased Creatinine TECHNOLOGIST COMMENTS: QUESTION FOR THE RADIOLOGIST: R/O Hydronephrosis TECHNIQUE: Limited retroperitoneal ultrasound. COMPARISON: none FINDINGS: Right kidney 11.2 x 4.7 x 5.1 cm. Left kidney is 10.1 x 5.4 x 4.2 cm. No hydronephrosis. No solid or cystic mass. No shadowing stones. IMPRESSION: Negative renal ultrasound Electronically signed by:Hannah Sheets. Transcribed by: [email or web address], User Resident: Electronically Signed by: HANNAH SHEETS @ 05/08/2019 01:59 PM Normal [facility] Comment on above: Order Comment: Crite lynne for reflexing a culture was not met. Please call the lab at [phone] within 24 hours of collection time if culture is needed VITAMIN B12on 05-08-2019 Cobalamin (Vitamin B12) [Mass/Vol] 186 pg/mL Normal 180-[address] [facility] Comment on above: Result Comment: REFE RENCE RANGES: 180-914 pg/mL Normal 145-179 pg/mL Indeterminate <145 pg/mL Deficient Performed By: #### 3 0965 #### [facility] [address] [place] [address], [facility] ALCOHOLon 05-07-2019 Ethanol [Mass/Vol] NONE DETECTED Normal [facility] Comment on above: Result Comment: Divi de by 1000 to convert mg/dL to percent. Example: 100mg/dL = 0.1%. Performed By: #### 2 0621 #### [facility] [address] [place] [address], [facility] APTTon 05-07-2019 aPTT Coag (Bld) [Time] 44.8 s High 25.0-35.[address] [facility] Comment on above: Result Comment: ALL RESULTS MUST BE INTERPRETED WITH RESPECT TO BLOOD DRAWING ARTIFACT OR DILUTION ERROR OF ANTICOAGULANT AT THE TIME OF SAMPLING. THE APTT SHOULD NOT BE USED TO MONITOR UNFRACTIONATED HEPARIN THERAPY, THIS LABORATORY NO LONGER HAS AN ESTABLISHED THERAPEUTIC RANGE BASED ON THE APTT. IT IS RECOMMENDED THAT THE UFH - HEPARIN ASSAY (ANTI-XA ACTIVITY) BE USED FOR THIS PURPOSE. Performed By: #### 5 6101, 24883 #### [facility] [address] [place] [address], [facility] BASIC METABOLIC PANELon Calcium [Mass/Vol] 10.0 mg/dL Normal 8.6-10.[address] [facility] Comment on above: Performed By: #### 3 5200, 64[address] #### [facility] [address] [facility] [place] [address], [facility] Chloride [Moles/Vol] 107 mmol/L Normal 98-[address] [facility] Comment on above: Performed By: #### 3 5200, 47753 #### [facility] [address] [facility] [place] [address], [facility] CO2 [Moles/Vol] 20 mmol/L Low 21-[address] [facility] Comment on above: Performed By: #### 3 5200, 66355 #### [facility] [address] [place] [address], [facility] Creatinine [Mass/Vol] 1.70 mg/dL High 0.60-1.[address] [facility] Comment on above: Performed By: #### 3 5199, 80572 #### [facility] [address] [place] [address], [place] GFR/1.73 sq M predicted among blacks MDRD (S/P/Bld) [Vol rate/Area] 35 ml/min/1.73sq m Abnormal >[address] [facility] Comment on above: Result Comment: Calc ulation may not be valid for patients over 70 years Performed By: #### 3 5199, 59453 #### [facility] [address] [place] [address], [place] GFR/1.73 sq M predicted among non-blacks MDRD (S/P/Bld) [Vol rate/Area] 29 ml/min/1.73sq m Abnormal >[address] [facility] Comment on above: Result Comment: Calc ulation may not be valid for patients over 70 years Performed By: #### 3 5199, 89555 #### [facility] [address] [place] [address], [place] Glucose [Mass/Vol] 96 mg/dL Normal 70-[address] [facility] Comment on above: Performed By: #### 3 5199, 76468 #### [facility] [address] [place] [address], [place] Potassium [Moles/Vol] 5.2 mmol/L High 3.5-5.[address] [facility] Comment on above: Performed By: #### 3 5199, 17641 #### [facility] [address] [place] [address], [place] Sodium [Moles/Vol] 138 mmol/L Normal 136-[address] [facility] Comment on above: Performed By: #### 3 5199, 17313 #### [facility] [address] [place] [address], [place] Urea nitrogen [Mass/Vol] 48 mg/dL High 7-[address] [facility] Comment on above: Performed By: #### 3 5200, 75378 #### [facility] [address] [place] [address], [facility] CBC W/DIFFon 05-07-2019 ABS BASOPHILS 0.1 10*3/uL Normal 0.0-0.[address] [facility] Comment on above: Performed By: #### 5 0103 #### [facility] [address] ABS IMM GRANS 0.0 10*3/uL Normal 0.0-0.[address] [facility] Comment on above: Performed By: #### 5 0103 #### [facility] [address] ABS NEUTROPHILS 4.6 10*3/uL Normal 1.6-7.[address] [facility] Comment on above: Performed By: #### 5 0103 #### [facility] [address] Basophils/100 WBC (Bld) 0.9 % Normal 0.0-1.[address] [facility] Comment on above: Performed By: #### 5 0103 #### [facility] [address] [place] [address], [facility] Eosinophils (Bld) [#/Vol] 0.1 10*3/uL Normal 0.0-0.[address] [facility] Comment on above: Performed By: #### 5 0103 #### [facility] [address] [place] [address], [facility] Eosinophils/100 WBC (Bld) 1.0 % Normal 0.0-6.[address] [facility] Comment on above: Performed By: #### 5 0103 #### [facility] [address] Erythrocyte distribution width (RBC) [Ratio] 14.4 % Normal 11.5-15.[address] [facility] Comment on above: Performed By: #### 5 0103 #### [facility] [address] [facility] [address] Hematocrit (Bld) [Volume fraction] 42.4 % Normal 36.0-45.[address] [facility] Comment on above: Performed By: #### 5 0103 #### [facility] 3000 [facility]. [address] Hemoglobin (Bld) [Mass/Vol] 12.9 g/dL Normal 12.0-15.[address] [facility] Comment on above: Performed By: #### 5 0103 #### [facility] [address] [facility]. [address] IMMATURE GRANS 0.3 % Normal 0.0-1.[address] [facility] Comment on above: Performed By: #### 5 0103 #### [facility] [address] Lymphocytes (Bld) [#/Vol] 1.6 10*3/uL Normal 1.2-4.[address] [facility] Comment on above: Performed By: #### 5 0103 #### [facility] [address] Lymphocytes/100 WBC (Bld) 23.7 % Normal 20.0-45.[address] [facility] Comment on above: Performed By: #### 5 0103 #### [facility] [address] [facility]. [address] MCH (RBC) [Entitic mass] 27.4 pg Normal 27.0-33.[address] [facility] Comment on above: Performed By: #### 5 3 #### [facility] [address] [facility] [address] MCHC (RBC) [Mass/Vol] 30.4 g/dL Low 32.0-35.[address] [facility] Comment on above: Performed By: #### 0103 #### [facility] [address] MCV (RBC) [Entitic vol] 90.2 fL Normal 82.0-98.[address] [facility] Comment on above: Performed By: #### 102 #### [facility] [address] [place] [address], [facility] Monocytes (Bld) [#/Vol] 0.6 10*3/uL Normal 0.1-1.[address] [facility] Comment on above: Performed By: #### 102 #### [facility] [address] MONOS 8.1 % Normal 5.0-12.[address] [facility] Comment on above: Performed By: #### 102 #### [facility] [address] Neutrophils/100 WBC (Bld) 66.0 % Normal 40.0-72.[address] [facility] Comment on above: Performed By: #### 102 #### [facility] [address] Nucleated RBC/100 WBC (Bld) [Ratio] 0 % Normal 0-[address] [facility] Comment on above: Performed By: #### 102 #### [facility] [address] [place] [address], [facility] PLAT CNT 197 10*3/uL Normal 150-[address] [facility] Comment on above: Performed By: #### 102 #### [facility] [address] [place] [address], [facility] RBC (Bld) [#/Vol] 4.70 10*6/uL Normal 3.80-5.[address] [facility] Comment on above: Performed By: #### 102 #### [facility] [address] WBC (Bld) [#/Vol] 6.93 10*3/uL Normal 4.00-10.[address] [facility] Comment on above: Performed By: #### 5 0103 #### [address] CHEST AND LATERALon 05-07-20 19 CHEST AND LATERAL [facility] Department of Radiology [address] [place] [id number] Patient Name: CONSTANZA WILSON : 1940 Sex: F Age: Race: White Pt. Location: [facility] Patient Status: O Ordered Date: 05/07/2019 7:10:00 PM Completed Date: 05/07/2019 07:46 PM Requesting Provider: SIMONE ROMERO Attending Provider: CHELY HURST Report Copy To: Signs & Symptoms: Chest Pain History: See Comments Comments: R/O Pneumonia Exam: CHEST AND LATERAL CHEST AND LATERAL 05/07/2019 7:46 PM EDT SIGNS AND SYMPTOMS: Chest Pain TECHNOLOGIST COMMENTS: Pt stated having Chest Pain. QUESTION FOR THE RADIOLOGIST: R/O Pneumonia PROTOCOL: AP(PA) and Lateral views were obtained. COMPARISON: None FINDINGS: Cardiomediastinal silhouette is within normal limits. Trachea is midline. No focal parenchymal opacity, pleural effusion or pneumothorax. No acute osseous abnormality. No subdiaphragmatic free air. Surgical clips noted in the right neck. Left shoulder arthritis IMPRESSION: No radiographic evidence of an acute cardiopulmonary process. Approved by:Sarah Lira on 05/07/2019 9:20 PM EDT. I, Arben Orozco, have reviewed the images and report and concur with these findings. Electronically signed by:Arben Orozco. Transcribed by: [email or web address], User Resident: SARAH LIRA Electronically Signed by: ARBEN OROZCO @ 05/08/2019 07:35 PM I personally read this/these film(s) with this resident Normal [facility] Comment on above: Order Comment: Crite lynne for reflexing a culture was not met. Please call the lab at [phone] within 24 hours of collection time if culture is needed PROTHROMBIN TIMEon 9 INR Coag (PPP) [Relative time] 3.35 {INR} High 0.91-1.[address] [facility] Comment on above: Result Comment: ACCC P RECOMMENDED INR FOR WARFARIN THERAPY --------- ------- CONDITION INR PROPHYLAXIS OF VENOUS THROMBOSIS 2-3 (HIGH-RISK SURGERY) TREATMENT OF VENOUS THROMBOSIS 2-3 TREATMENT OF PULMONARY EMBOLISM 2-3 PREVENTION OF SYSTEMIC EMBOLISM: 2-3 ACUTE MYOCARDIAL INFARCTION TISSUE HEART VALVES VALVULAR HEART DISEASE ATRIAL FIBRILLATION RECURRENT SYSTEMIC EMBOLISM MECHANICAL HEART VALVE 2.5-3.5 FROM: ORAL ANTICOAGULANTS. MECHANISM OF ACTION, CLINICAL EFFECTIVENESS, AND OPTIMAL THERAPEUTIC RANGE. CHEST 1995;108:231S-246S. Performed By: #### 5 6101, 80594 #### [facility] [address] PT Coag (PPP) [Time] 34.7 s High 12.3-14.[address] [facility] Comment on above: Result Comment: ALL RESULTS MUST BE INTERPRETED WITH RESPECT TO BLOOD DRAWING ARTIFACT OR DILUTION ERROR OF ANTICOAGULANT AT THE TIME OF SAMPLING. Performed By: #### 5 6101, 05424 #### [facility] [address] [place], [place] [id number] [place] [address] TOX PANEL URINEon 05-07-2019 50 THC Negative Normal NEGATIVE [facility] Comment on above: Performed By: #### 3 1079 #### [facility] [address] [facility] [place] [address], [facility] BARBITURATES Negative Normal NEGATIVE [facility] Comment on above: Performed By: #### 3 1079 #### [facility] [address] [facility] [place] [address], [facility] Benzodiazepines Ql (U) Negative Normal NEGATIVE e [facility] Comment on above: Performed By: #### 3 1079 #### [facility] [address] [facility] [place] [address], [facility] Cocaine Ql (U) Negative Normal NEGATIVE [facility] Comment on above: Performed By: #### 3 1079 #### [facility] [address] [facility] [place] [address], [facility] Methadone Ql (U) Negative Normal NEGATIVE [facility] Comment on above: Performed By: #### 3 1079 #### [facility] [address] [place] [address], [facility] MONO AMPHET Negative Normal NEGATIVE [facility] Comment on above: Performed By: #### 3 1079 #### [facility] [address] [place] [address], [facility] Opiates Ql (U) Negative Normal NEGATIVE [facility] Comment on above: Performed By: #### 3 1079 #### [facility] [address] [facility] [place] [address], [facility] Phencyclidine Ql (U) Negative Normal NEGATIVE [facility] Comment on above: Performed By: #### 3 1079 #### [facility] [address] [place] [address], [facility] PROPOXYPHENE Negative Normal NEGATIVE [facility] Comment on above: Performed By: #### 3 1079 #### [facility] [address] [place] [address], [facility] TRICYCLICS Negative Normal NEGATIVE [facility] Comment on above: Performed By: #### 3 1079 #### [facility] [address] [place] [address], [facility] TROPONIN-Ion 05-07-2019 Troponin I.cardiac [Mass/Vol] 0.01 ng/mL Normal 0.00-0.[address] [facility] Comment on above: Result Comment: REFE RENCE RANGES: 0.00 - 0.04 ng/ml NORMAL 0.05 - 0.50 ng/ml INDETERMINATE > 0.50 ng/ml CONSISTENT WITH AN M.I. Performed By: #### 3 5200, 64824 #### [facility] [address] [place] [address], [facility] URINALYSIS REFLEXon 05-07-20 19 Appearance (U) SL CLOUDY Abnormal CLEAR [facility] Comment on above: Order Comment: Crite lynne for reflexing a culture was not met. Please call the lab at [phone] within 24 hours of collection time if culture is needed Performed By: #### 3 0965 #### [facility] [address] [place] [address], [facility] Bilirubin [Mass/Vol] Negative Normal NEGATIVE [facility] Comment on above: Order Comment: Crite lynne for reflexing a culture was not met. Please call the lab at [phone] within 24 hours of collection time if culture is needed Performed By: #### 3 [id number] #### [facility] [address] [place] [address], [facility] BLOOD Negative Normal NEGATIVE The [facility] Comment on above: Order Comment: Crite lynne for reflexing a culture was not met. Please call the lab at [phone] within 24 hours of collection time if culture is needed Performed By: #### 3 [id number] #### [facility] [address] [place] [id number], [facility] Color (U) YELLOW Normal YELLOW [facility] Comment on above: Order Comment: Crite lynne for reflexing a culture was not met. Please call the lab at [phone] within 24 hours of collection time if culture is needed Performed By: #### 3 [id number] #### [facility] [address] [place] [address], [place] EPIS FEW Normal FEW,OCC,NONE SEEN [facility] Comment on above: Order Comment: Crite lynne for reflexing a culture was not met. Please call the lab at [phone] within 24 hours of collection time if culture is needed Performed By: #### 3 [id number] #### [facility] [address] [place] [address], [place] Glucose [Mass/Vol] Negative Normal NEGATIVE [facility] Comment on above: Order Comment: Crite lynne for reflexing a culture was not met. Please call the lab at [phone] within 24 hours of collection time if culture is needed Performed By: #### 3 [id number] #### [facility] [address] [place] [address], [place] KETONE TRACE Abnormal NEGATIVE [facility] Comment on above: Order Comment: Crite lynne for reflexing a culture was not met. Please call the lab at [phone] within 24 hours of collection time if culture is needed Performed By: #### 3 0965 #### [facility] [address] [place] [address], [place] LEUK SPARKLE TRACE Abnormal NEGATIVE [facility] Comment on above: Order Comment: Crite lynne for reflexing a culture was not met. Please call the lab at [phone] within 24 hours of collection time if culture is needed Performed By: #### 3 [id number] #### [facility] [address] [place] [address], [facility] MUCUS THREADS FEW Abnormal NONE SEEN The [facility] Comment on above: Order Comment: Crite lynne for reflexing a culture was not met. Please call the lab at [phone] within 24 hours of collection time if culture is needed Performed By: #### 3 [id number] #### [facility] [address] [facility] [place] [id number], [facility] Nitrite Ql (U) Negative Normal NEGATIVE [facility] Comment on above: Order Comment: Crite lynne for reflexing a culture was not met. Please call the lab at [phone] within 24 hours of collection time if culture is needed Performed By: #### 3 0965 #### [facility] [address] [place] [address], [facility] pH (Bld) 5.0 Normal 5.0-8.[address] [facility] Comment on above: Order Comment: Crite lynne for reflexing a culture was not met. Please call the lab at [phone] within 24 hours of collection time if culture is needed Performed By: #### 3 0965 #### [facility] [address] [place] [address], [facility] Protein (U) [Mass/Vol] Negative Normal NEGATIVE Th e [facility] Comment on above: Order Comment: Crite lynne for reflexing a culture was not met. Please call the lab at [phone] within 24 hours of collection time if culture is needed Performed By: #### 3 0965 #### [facility] [address] [place] [address], [facility] RBC (U) [#/Vol] NONE SEEN Normal NONE SEEN The [facility] Comment on above: Order Comment: Crite lynne for reflexing a culture was not met. Please call the lab at [phone] within 24 hours of collection time if culture is needed Performed By: #### 3 0965 #### [facility] [address] [place] [id number], [facility] SPEC GRAV 1.021 High 1.015-1.[address] [facility] Comment on above: Order Comment: Crite lynne for reflexing a culture was not met. Please call the lab at [phone] within 24 hours of collection time if culture is needed Performed By: #### 3 0965 #### [facility] [address] [place] [address], [facility] WBC UA 3-5 Abnormal NONE SEEN The [facility] Comment on above: Order Comment: Crite lynne for reflexing a culture was not met. Please call the lab at [phone] within 24 hours of collection time if culture is needed Performed By: #### 3 0965 #### [facility] [address] [facility] [place] [address], [facility] Vital Signs Date Time Vital Sign Value Performing Clinician Manjeet mccrary 05-16-2023 19:55-0400 Body mass index (BMI) [Ratio] 26.4 kg/m2 [facility] 05-16-2023 19:55-0400 Body weight 69.7 kg [facility] 05-16-2023 19:47-0400 Body height 162.56 cm [facility] 05-16-2023 19:47-0400 Body temperature 96.8 [degF] [facility] 05-16-2023 19:47-0400 Diastolic blood pressure 67 mm[Hg] [facility] 05-16-2023 19:47-0400 Heart rate 67 /min [facility] 05-16-2023 19:47-0400 Respiratory rate 18 /min [facility] 05-16-2023 19:47-0400 SaO2% (BldA) [Mass fraction] 98 % [facility] 05-16-2023 19:47-0400 Systolic blood pressure 142 mm[Hg] [facility] Encounters Encounter Date Encounter Type Care Provider Facility Start: 02-26-2025 End: 02-26-2025 ambulatory [facility] Start: 12-16-2024 End: 12-16-2024 ambulatory [facility] Start: 12-16-2024 End: 12-16-2024 Subsequent hospital visit by physician Tacos Wright DO Work Phone: [facility] Start: 11-18-2024 End: 11-18-2024 ambulatory [facility] Start: 11-18-2024 End: 11-18-2024 Subsequent hospital visit by physician Tacos Wright DO Work Phone: [facility] Start: 10-21-2024 End: 10-21-2024 ambulatory [facility] Start: 10-21-2024 End: 10-21-2024 Subsequent hospital visit by physician Tacos Wright DO Work Phone: [facility] Start: 10-18-2024 Evaluation and management of inpatient [facility] Start: 10-18-2024 Evaluation and management of inpatient [facility] Start: 10-18-2024 Emergency department patient visit [facility] Start: 10-18-2024 Emergency department patient visit [facility] Start: 10-17-2024 End: 10-18-2024 Evaluation and management of inpatient [facility] Start: 10-14-2024 End: 10-14-2024 ambulatory [facility] Facility:[facility] Start: 09-25-2024 End: 09-25-2024 ambulatory [facility] Start: 09-25-2024 End: 09-25-2024 Subsequent hospital visit by physician Tacos Wright DO Work Phone: [facility] Start: 09-25-2024 End: 09-25-2024 ambulatory [facility] Facility:[facility] Start: 09-16-2024 End: 09-16-2024 ambulatory [facility] Start: 08-14-2024 End: 08-14-2024 ambulatory [facility] Start: 08-14-2024 End: 08-14-2024 Subsequent hospital visit by physician Tacos Wright DO Work Phone: [facility] Start: 08-12-2024 End: 08-12-2024 ambulatory [facility] Start: 08-12-2024 End: 08-12-2024 Subsequent hospital visit by physician Tacos Wright DO Work Phone: [facility] Start: 07-22-2024 End: 07-22-2024 ambulatory [facility] Start: 07-15-2024 End: 07-15-2024 ambulatory [facility] Start: 07-15-2024 End: 07-15-2024 Subsequent hospital visit by physician Tacos Wright DO Work Phone: [facility] Start: 07-10-2024 End: 07-10-2024 ambulatory [facility] Start: 07-10-2024 End: 07-10-2024 Subsequent hospital visit by physician Tacos Wright DO Work Phone: [facility] Start: 05-15-2024 End: 05-15-2024 ambulatory [facility] Start: 05-13-2024 End: 05-13-2024 [facility] Start: 05-08-2024 End: 05-08-2024 ambulatory [facility] Start: 05-06-2024 End: 05-06-2024 ambulatory [facility] Start: 05-06-2024 End: 05-06-2024 Subsequent hospital visit by physician Tacos Wright DO Work Phone: [facility] Start: 05-01-2024 End: 05-01-2024 ambulatory [facility] Start: 01-10-2024 End: 01-10-2024 Subsequent hospital visit by physician Tacso Wright DO Work Phone: [facility] Start: 11-13-2023 End: 11-13-2023 Subsequent hospital visit by physician Tacos Wright DO Work Phone: [facility] Start: 06-26-2023 End: 06-26-2023 Subsequent hospital visit by physician Tacos Wright DO Work Phone: [facility] Start: 06-19-2023 End: 06-19-2023 Subsequent hospital visit by physician Tacos Wright DO Work Phone: [facility] Start: 05-16-2023 End: 05-16-2023 Emergency department patient visit [facility] Work Phone: Start: 03-20-2023 End: 03-20-2023 Subsequent hospital visit by physician [facility] Start: 01-23-2023 End: 01-23-2023 Subsequent hospital visit by physician [facility] Start: 12-21-2022 End: 12-21-2022 Subsequent hospital visit by physician [facility] Start: 12-11-2022 End: 12-11-2022 ambulatory [facility] Work Phone: Start: 12-11-2022 End: 12-11-2022 Patient encounter procedure [facility] Start: 10-10-2022 End: 10-10-2022 Subsequent hospital visit by physician [facility] Start: 09-19-2022 End: 09-19-2022 Subsequent hospital visit by physician [facility] Start: 09-14-2022 End: 09-14-2022 Subsequent hospital visit by physician [facility] Start: 05-16-2022 End: 05-16-2022 Subsequent hospital visit by physician [facility] Start: 03-16-2022 End: 03-16-2022 Subsequent hospital visit by physician [facility] Start: 03-14-2022 End: 03-14-2022 Subsequent hospital visit by physician [facility] Start: 01-12-2022 End: 01-12-2022 Subsequent hospital visit by physician [facility] Start: 10-25-2021 End: 10-25-2021 Subsequent hospital visit by physician [facility] Start: 07-10-2021 End: 07-10-2021 Subsequent hospital visit by physician [facility] Start: 06-23-2021 End: 06-23-2021 Subsequent hospital visit by physician [facility] Start: 04-12-2021 End: 04-12-2021 Subsequent hospital visit by physician [facility] Start: 02-15-2021 End: 02-15-2021 Subsequent hospital visit by physician [facility] Start: 12-21-2020 End: 12-21-2020 Subsequent hospital visit by physician [facility] Start: 10-21-2020 End: 10-21-2020 Subsequent hospital visit by physician [facility] Start: 09-13-2020 End: 09-13-2020 Subsequent hospital visit by physician [facility] Start: 09-06-2020 End: 09-06-2020 Subsequent hospital visit by physician [facility] Start: 08-30-2020 End: 08-30-2020 Subsequent hospital visit by physician [facility] Start: 08-23-2020 End: 08-23-2020 Subsequent hospital visit by physician [facility] Start: 07-19-2020 End: 07-19-2020 Subsequent hospital visit by physician [facility] Start: 07-12-2020 End: 07-12-2020 Subsequent hospital visit by physician [facility] Start: 06-21-2020 End: 06-21-2020 Subsequent hospital visit by physician [facility] Start: 06-17-2020 End: 06-17-2020 Subsequent hospital visit by physician [facility] Start: 06-15-2020 End: 06-15-2020 Subsequent hospital visit by physician [facility] Start: 05-19-2020 End: 05-19-2020 Subsequent hospital visit by physician [facility] Start: 04-22-2020 End: 04-22-2020 Subsequent hospital visit by physician [facility] Start: 02-26-2020 End: 02-26-2020 Subsequent hospital visit by physician [facility] Start: 02-17-2020 End: 02-17-2020 Subsequent hospital visit by physician [facility] Start: 01-24-2020 End: 01-24-2020 Subsequent hospital visit by physician [facility] Start: 12-16-2019 End: 12-16-2019 Subsequent hospital visit by physician [facility] Start: 06-24-2019 End: 06-24-2019 Subsequent hospital visit by physician [facility] Start: 05-08-2019 End: 05-11-2019 Patient encounter procedure DEANA AL-HOURANI Facility:[facility] Procedures Date Procedure Procedure Detail Performing Clinician Start: 12-16-2024 Blood count complete automated Tacos L Siders DO Work Phone: Start: 11-18-2024 Assay of ferritin Rebec ca L Siders DO Work Phone: Start: 10-21-2024 Basic metabolic pane l calcium total Tacos L Siders DO Work Phone: Start: 10-21-2024 Lipid panel Tacos L Siders DO Work Phone: Start: 09-25-2024 Assay of ferritin Rebec ca L Siders DO Work Phone: Start: 08-14-2024 Comprehensive metabo lic panel Tacos L Siders DO Work Phone: Start: 08-12-2024 Blood count complete automated Tacos L Siders DO Work Phone: Start: 07-15-2024 Assay of ferritin Rebec ca L Siders DO Work Phone: Start: 05-06-2024 Blood count complete automated Tacos L Siders DO Work Phone: Start: 05-06-2024 Lipid panel Tacos L Siders DO Work Phone: Start: 11-13-2023 Blood count complete automated Tacos L Siders DO Work Phone: Start: 06-26-2023 Blood count complete automated Tacos L Siders DO Work Phone: Start: 06-19-2023 Assay of ammonia Rebecc a L Siders DO Work Phone: Start: 06-19-2023 Drug assay valproic dipropylacetic acid total Tacos L Siders DO Work Phone: Start: 05-16-2023 X-ray of both feet Start: 05-16-2023 Radiography of ankle Start: 03-20-2023 Assay of ammonia Rebecc a L Siders DO Work Phone: Start: 03-20-2023 Drug assay valproic dipropylacetic acid total Tacos L Siders DO Work Phone: Start: 01-23-2023 Blood count complete automated Tacos L Siders DO Work Phone: Start: 12-21-2022 Assay of ammonia Rebecc a L Siders DO Work Phone: Start: 12-21-2022 Drug assay valproic dipropylacetic acid total Tacos L Siders DO Work Phone: Start: 10-10-2022 Lipid panel Bin Curtis MD Work Phone: Start: 09-19-2022 Assay of ammonia Rebecc a L Siders DO Work Phone: Start: 09-19-2022 Drug assay valproic dipropylacetic acid total Tacos L Siders DO Work Phone: Start: 09-14-2022 Blood count complete automated Tacos L Siders DO Work Phone: Start: 05-16-2022 Blood count complete auto&auto difrntl wbc Tacos L Siders DO Work Phone: Start: 03-16-2022 Comprehensive metabo lic panel Tacos L Siders DO Work Phone: Start: 03-14-2022 Lipid panel Bin Curtis MD Work Phone: Start: 01-12-2022 Comprehensive metabo lic panel Tacos L Siders DO Work Phone: Start: 10-25-2021 Lipid panel Bin Curtis MD Work Phone: Start: 06-23-2021 Comprehensive metabo lic panel Bin Curtis MD Work Phone: Start: 04-12-2021 Lipid panel Bin Curtis MD Work Phone: Start: 02-15-2021 Comprehensive metabo lic panel Bin Curtis MD Work Phone: Start: 12-21-2020 Assay of free thyroxine Bin Han Ever Work Phone: Start: 12-21-2020 Assay of thyroid stimulating hormone tsh Bin Han Ever Work Phone: Start: 12-21-2020 Blood count complete automated Bin Han Ever Work Phone: Start: 12-21-2020 Comprehensive metabo lic panel Bin Han Ever Work Phone: Start: 10-21-2020 Lipid panel Bin P Ever Work Phone: Start: 06-17-2020 Assay of free thyroxine Bin Han Ever Work Phone: Start: 06-17-2020 Assay of thyroid stimulating hormone tsh Bin Han Ever Work Phone: Start: 06-17-2020 Blood count complete automated Bin Han Ever Work Phone: Start: 06-17-2020 Comprehensive metabo lic panel Bin Han Ever Work Phone: Start: 04-22-2020 Lipid panel Bin Han Lazarominomanda Work Phone: Start: 02-17-2020 Cyanocobalamin vitamin b-12 Bin Han Lazarominomanda Work Phone: Start: 01-24-2020 COVID-19 Bin Han Lazarogem Work Phone: Start: 12-16-2019 Assay of free thyroxine Bin Han Ever Work Phone: Start: 12-16-2019 Assay of thyroid stimulating hormone tsh Bin Han Ever Work Phone: Start: 12-16-2019 Blood count complete automated Bin Han Lazarominomanda Work Phone: Start: 12-16-2019 Comprehensive metabo lic panel Bin Han Ever Work Phone: Start: 06-24-2019 Basic metabolic pane l calcium total Bin Curtis Work Phone: Start: 06-24-2019 Blood count complete automated Bin Curtis Work Phone: Plan of Treatment Date Care Activity Detail Author Start: 10-17-2034 DTaP/Tdap/Td vaccine (2 - Td or Tdap) DTaP/Tdap/Td vaccine (2 - Td or Tdap) [facility] [employer] Start: 10-07-2024 Annual Wellness Visi t (Medicare Advantage) Annual Wellness Visit (Medicare Advantage) [facility] [employer] Start: 06-07-2024 COVID-19 Vaccine ( season) COVID-19 Vaccine ( season) [facility] [employer] Start: 06-07-2024 COVID-19 Vaccine ( season) COVID-19 Vaccine ( season) [facility] [employer] Start: 05-07-2024 Influenza vaccination [facility] [employer] Start: 10-07-2023 Annual Wellness Visi t (Medicare Advantage) Annual Wellness Visit (Medicare Advantage) [facility] [employer] Start: 06-26-2023 Subsequent hospital visit by physician 06/26/2023 Hospital Encounter [facility] [address] [place] [address] [facility] Start: 05-07-2023 Influenza vaccination [facility] [employer] Start: 09-19-2022 Subsequent hospital visit by physician 09/19/2022 Hospital Encounter Lab [facility] Start: 06-07-2022 Influenza vaccination [employer] Start: 05-07-2022 Influenza vaccination Flu vaccine (# 1) [facility] [employer] Start: 03-16-2022 Subsequent hospital visit by physician 03/16/2022 Hospital Encounter Lab [facility] Start: 06-07-2021 Influenza vaccination [employer] Start: 06-17-2020 Hospital Encounter 06/17/2020 Hospital Encounter Lab [facility] Start: 06-07-2020 Influenza [place] Start: 06-07-2019 Influenza vaccination Flu vaccine (# 1) [facility] [place] Start: 05-15-2019 Annual Wellness Visi t (AWV) Annual Wellness Visit (AWV) [facility] Start: 2015 Respiratory Syncytia l Virus (RSV) or age 60 yrs+ (1 - 1-dose 75+ series) Respiratory Syncytial Virus (RSV) or age 60 yrs+ (1 - 1-dose 75+ series) [facility] Start: 2005 Pneumococcal 65+ yea rs Vaccine (1 - PCV) Pneumococcal 65+ years Vaccine (1 - PCV) [facility] Start: 2005 Pneumococcal 65+ yea rs Vaccine (1 of 1 - PPSV23) Pneumococcal 65+ years Vaccine (1 of 1 - PPSV23) [facility] Start: 2005 Pneumococcal 65+ yea rs Vaccine (1 of 2 - PCV13) Pneumococcal 65+ years Vaccine (1 of 2 - PCV13) [place], [place] Start: 2000 Respiratory Syncytia l Virus (RSV) or age 60 yrs+ (1 - 1-dose 60+ series) Respiratory Syncytial Virus (RSV) or age 60 yrs+ (1 - 1-dose 60+ series) [facility] Start: 1995 Screening for osteoporosis DEXA (modify frequency per FRAX score) [facility] Start: 1990 Pneumococcal 50+ yea rs Vaccine (1 of 1 - PCV) Pneumococcal 50+ years Vaccine (1 of 1 - PCV) [facility] Start: 1990 Shingles Vaccine (1 of 2) Shingles Vaccine (1 of 2) [facility] Start: 1959 DTaP/Tdap/Td vaccine (1 - Tdap) DTaP/Tdap/Td vaccine (1 - Tdap) [facility] Start: 1959 Pneumococcal 50+ yea rs Vaccine (1 of 2 - PCV) Pneumococcal 50+ years Vaccine (1 of 2 - PCV) [facility] Start: 1956 COVID-19 Vaccine (1) COVID-19 Vaccin e (1) [facility] [employer] Phone: Start: 1952 COVID-19 Vaccine (1) COVID-19 Vaccin e (1) [facility] [employer] Phone: Start: 1952 Depression Screen Depression Screen [facility] [employer] Start: 1946 Pneumococcal 65+ yea rs Vaccine (1 of 2 - PCV) Pneumococcal 65+ years Vaccine (1 of 2 - PCV) [facility] Start: 1945 COVID-19 Vaccine (1) COVID-19 Vaccin e (1) [employer] Start: 1940 COVID-19 Vaccine (#1) COVID-19 Vacci ne (#1) [facility] Start: 1940 Annual Wellness Visi t (AWV) Annual Wellness Visit (AWV) [facility] End: 06-19-2023 Ammonia [Mass/volume] in Plasma [facility] [employer] Work Phone: Comment on above: Once for 1 Occurrenc es starting 06/19/2023 until 06/19/2023 End: 06-26-2023 CBC panel - Blood by Automated count [facility] Work Phone: Comment on above: Once for 1 Occurrenc es starting 06/26/2023 until 06/26/2023 COVID-19 COVID-19 Lab [facility] 01/24/2020 11:01 AM EDT [facility], [place] End: 05-19-2020 Covid-19 Ambulatory Covid-19 Ambulatory Lab Routine Once for 1 Occurrences starting 05/19/2020 until 05/19/2020 [place], [place] Comment on above: Once for 1 Occurrenc es starting 05/19/2020 until 05/19/2020 Covid-19 Ambulatory [facility], [place] End: 06-15-2020 Covid-19 Ambulatory Covid-19 Ambulatory Lab Routine Once for 1 Occurrences starting 06/15/2020 until 06/15/2020 [place], [place] Comment on above: Once for 1 Occurrenc es starting 06/15/2020 until 06/15/2020 End: 06-21-2020 Covid-19 Ambulatory Covid-19 Ambulatory Lab Routine Once for 1 Occurrences starting 06/21/2020 until 06/21/2020 [place], [place] Comment on above: Once for 1 Occurrenc es starting 06/21/2020 until 06/21/2020 End: 07-12-2020 Covid-19 Ambulatory Covid-19 Ambulatory Lab STAT Once for 1 Occurrences starting 07/12/2020 until 07/12/2020 [facility], [place] Comment on above: Once for 1 Occurrenc es starting 07/12/2020 until 07/12/2020 End: 07-19-2020 Covid-19 Ambulatory Covid-19 Ambulatory Lab Routine Once for 1 Occurrences starting 07/19/2020 until 07/19/2020 [facility] Comment on above: Once for 1 Occurrenc es starting 07/19/2020 until 07/19/2020 End: 08-23-2020 Covid-19 Ambulatory Covid-19 Ambulatory Lab Routine Once for 1 Occurrences starting 08/23/2020 until 08/23/2020 [facility] Comment on above: Once for 1 Occurrenc es starting 08/23/2020 until 08/23/2020 End: 08-30-2020 Covid-19 Ambulatory Covid-19 Ambulatory Lab Routine Once for 1 Occurrences starting 08/30/2020 until 08/30/2020 [facility] Comment on above: Once for 1 Occurrenc es starting 08/30/2020 until 08/30/2020 End: 09-13-2020 Covid-19 Ambulatory Covid-19 Ambulatory Lab Routine Once for 1 Occurrences starting 09/13/2020 until 09/13/2020 [facility] Comment on above: Once for 1 Occurrenc es starting 09/13/2020 until 09/13/2020 End: 09-06-2020 Covid-19 Ambulatory Covid-19 Ambulatory Lab Routine Once for 1 Occurrences starting 09/06/2020 until 09/06/2020 [facility], [place] Comment on above: Once for 1 Occurrenc es starting 09/06/2020 until 09/06/2020 End: 02-26-2020 Culture, Urine Culture, Urine Microbiology Routine Once for 1 Occurrences starting 02/26/2020 until 02/26/2020 [facility] Comment on above: Once for 1 Occurrenc es starting 02/26/2020 until 02/26/2020 Culture, Urine Culture, Urine Microbiology Routine 02/26/2020 2:00 PM EDT [facility], [place] Patient Education ED Fracture, F oot ED Ankle Sprain (Adult) [facility] Work Phone: Patient referral [facility] Work Phone: End: 02-26-2020 Urinalysis Urinalysis Lab Routine Once for 1 Occurrences starting 02/26/2020 until 02/26/2020 [place], [place] Comment on above: Once for 1 Occurrenc es starting 02/26/2020 until 02/26/2020 Urinalysis Urinalysis Lab R outine 02/26/2020 2:00 PM EDT [place], [place] End: 06-19-2023 Valproic Acid Level, Total [facility] Comment on above: Once for 1 Occurrenc es starting 06/19/2023 until 06/19/2023 Immunizations Immunization Date Immunization Notes Care Provider Fa cili 12-28-2020 Covid ([facility] 11-30-2020 Covid ([facility] Payers Date Payer Category Payer Medicare [id number] 2024 Self-pay [id number] 2024 Unknown [id number] 2023 Unknown [id number] [id number].3. [id number] 2014 Medicaid [id number] 1.2.840.127115.1.13.239.2.7.3. [id number] 2014 Medicare [id number] 2014 Medicare MEDICARE MEDICAR E PART A AND B xxxxxxxxxxx 2014-Present [phone] [place] [address] xxxxxxxxxxx [id number]. [id number] 2014 Medicare MEDICARE MEDICAR E PART A AND B [id number] 2014-Present [phone] [place] [address] [id number] 1.2.840.912360.1.13.239.2.7.3. [id number] 1940 Unknown [id number] 2.16.840.1.064799.3.579.2.647 1940 Unknown [id number] 2.16.840.1.075861.3.579.2.177 1940 Unknown [id number] 2.16.840.1.534495.3.579.2.177 1940 Unknown [id number] 2.16.840.1.877621.3.579.2.177 1940 Unknown [id number] 2.16.840.1.511408.3.579.2.177 1940 Unknown [id number] 2.16.840.1.189684.3.579.2.177 1940 Unknown [id number] 2.16.840.1.232600.3.579.2.177 1940 Unknown [id number] 2.16.840.1.723093.3.579.2.177 1940 Unknown [id number] 2.16.840.1.824192.3.579.2.177 1940 Unknown [id number] 2.16.840.1.582201.3.579.2.177 1940 Unknown [id number] 2.16.840.1.474394.3.579.2.177 1940 Unknown [id number] 2.16.840.1.308653.3.579.2.177 1940 Unknown [id number] 2.16.840.1.641297.3.579.2.177 1940 Unknown [id number] 2.16.840.1.317635.3.579.2.177 1940 Unknown [id number] 2.16.840.1.208493.3.579.2.177 1940 Unknown [id number] 2.16.840.1.259427.3.579.2.177 1940 Unknown [id number] 2.16.840.1.279472.3.579.2.177 Unknown COMMERCIAL OTHER [id number] Unknown [id number] 2.16.840.1.701080.3.579.2.462 Unknown [id number] 2.16.840.1.650515.3.579.2.462 Social History Date Type Detail Facility Tobacco smoking status NHIS Unknown if ever smoked [place], [place] Start: 1940 Sex Assigned At Not on file [place], [place] Start: 02-26-2021 End: 05-16-2023 Tobacco smoking status IDIS Tobacco smoking consumption unknown [facility] Start: 02-26-2021 Cigarettes [facility] Start: 1940 Sex Assigned At Female [facility] Gender identity Not on file [facility] Start: 04-19-2016 Sex Female (finding) [facility] Progress note 10-18-2024 Note Date & Type Note Facility 10-18-2024 Note Patient has a hospic e meeting scheduled for 10/19/24 at 1:30PM [facility] Progress note 10-18-2024 Note Date & Type Note Facility 10-18-2024 Note I reviewed the igor nt's repeat CT head. There is no change in the small right frontal intracranial hemorrhage. There is no indication for any surgical intervention. The patient can start chemical DVT prophylaxis tomorrow. I would recommend waiting 1-2 weeks to consider restarting the patient's anticoagulation (if she has frequent falls then the patient's primary care providers and other specialists involved with prescribing her anticoagulation may need to reconsider its appropriateness for her). She does not need scheduled follow up with neurosurgery. Please call if there are other questions or concerns. Carlos Hartley MD [facility] Progress note 10-18-2024 Note Date & Type Note Facility 10-18-2024 Note Discharge Planning: [facility] ([facility]) Return Spoke with the patient???s POA, Rico Jackson, who agreed to proceed with a referral to [facility]. Mr. Jackson provided his email address for Hospice to contact him directly regarding any required documentation or signatures. Additionally, communicated with staff, Yesenia at the [facility] facility to provide updates on the patient???s status, confirming that the patient is able to return. POA contact information [email or web address] [facility] - [address] ??? . [facility] Clinical Note 10-18-2024 Note Date & Type Note Facility 10-18-2024 Note [facility] Surgical Intensive Care Unit History and Physical Chief Complaint: S/P Fall, Intracerebral hemorrhage, critical care management HPI: 84 y.o. year old female who presented to the Emergency Department after suffering a witnessed fall from standing at [facility] where she resides. Exact details of the incident were not reported, but the staff at the facility states patient did not lose consciousness. He arrived to the emergency department via EMS. She was noted to have a laceration above the left which was repaired by the emergency department team. He underwent CT scans of the head, cervical spine, chest, abdomen and pelvis. CT scan of the brain showed a. Also noted to have evidence of prior left-sided craniotomy. Trauma was activated and she was admitted patient to the surgical ICU for intensive care monitoring. Neurosurgery was consulted for intraparenchymal hemorrhage and made recommendations for hourly neurochecks, DOAC reversal and follow-up CT Brain in AM. Patient history obtained from EHR. She is unable to provide history due to her current medical condition. We do not know her baseline cognitive evaluation. Medical history significant for dementia/Alzheimer's, chronic atrial fibrillation (on apixaban), CKD, hypertension, hyperlipidemia, hypothyroidism, and history of agitation and falls. Patient arrived with paperwork from the extended care facility. Her existing CODE STATUS is DNR CC. Her POA is not available at this time in person or by phone. Review of Systems: unable to obtain due to patient's medical condition History: The following information was obtained through chart review as the patient was unable to provide information due to emergency nature and/or medical condition Past Medical History: has a past medical history of A-fib ([facility]), Alzheimer's dementia ([facility]), Anemia, CKD (chronic kidney disease), Depression, [place] (generalized anxiety disorder), [place] (hard of hearing), and HTN (hypertension). Past Surgical History: has no past surgical history on file. Allergies: Hydrocodone Home Medications: (Not in a hospital admission) Social History: unable to obtain due to patient's condition Family History: pulled available information in [employer] from previous visits No family history on file. Objective Vitals: BP: (153-188)/(70-99) 162/70 (10/18 299) Systolic BP Percentile: -- Diastolic BP Percentile: -- Temp: [37.1 ???C (98.7 ???F)] 37.1 ???C (98.7 ???F) (10/17 2158) Temp Source: Oral (10/17 2158) Heart Rate: [58-93] 58 (10/18 299) Resp: [15-22] 17 (10/18 299) SpO2: [95 %-97 %] 95 % (10/18 299) Height: [175.3 cm (5' 9)] 175.3 cm (5' 9) (10/17 2158) Weight: [61.2 kg (135 lb)] 61.2 kg (135 lb) (10/17 2158) Matt Coma Scale Score: 14 No intake/output data recorded. Physical Exam: General: Awake, Alert, No acute distress Head: Normocephalic. Left periorbital hematoma. Left supraorbital lacertion well-approximated with steri strips. Left nasal bridge laceration well-approximated with steri strips. Mid Face Stable. Tympanic Membranes Intact. Nares Patent Bilaterally, No Epistaxis. Mouth Clear Of Foreign Bodies, No Lacerations Or Abrasions. Eyes: PERRL. EOMI. Atraumatic Neurologic: Drowsy, although easily aroused. Withdraws to pain in all 4 extremities and moves all 4 extremities symmetrically. Lungs: Clear To Auscultation Bilaterally With Normal Work Of Breathing On Room Air Chest Wall: Chest Rise Symmetrical. No Crepitus, Deformities, Lacerations, Or Abrasions Heart: RRR. Normal S1/S2. No Obvious Murmurs Abdomen: Soft, Nontender, And Nondistended With Normoactive Bowel Sounds. No Guarding, Non-Peritoneal Pelvis: Pelvis Is Stable To Compression GI/: No Blood At The Urinary Meatus. No Gross Hematuria Extremities: No Gross Deformities. Pulse, Motor, And Sensation Intact Bilaterally Skin: Warm And Dry. Normal For Ethnicity Psych: sleeping Labs: Recent Results (from the past 12 hour(s)) Comprehensive metabolic panel Collection Time: 10/18/24 2:26 AM Result Value Ref Range Sodium 141 136 - 145 mmol/L Potassium 4.4 3.5 - 5.1 mmol/L Chloride 112 (H) 98 - 107 mmol/L CO2 24 21 - 31 mmol/L Anion Gap 9 7 - 20 mmol/L BUN 37 (H) 7 - 25 mg/dL Creatinine 1.59 (H) 0.60 - 1.20 mg/dL BUN/Creatinine Ratio 23.3 Glucose 108 (H) 70 - 100 mg/dL Calcium 9.6 8.6 - 10.3 mg/dL AST 16 13 - 39 U/L ALT (SGPT) 6 (L) 7 - 52 U/L Alkaline Phosphatase 67 34 - 104 U/L Total Protein 7.6 6.0 - 8.3 g/dL Albumin 4.4 3.5 - 5.7 g/dL Total Bilirubin 0.5 0.3 - 1.0 mg/dL eGFR 31.8 (L) >60.0 mL/min/1.73m*2 Lactic acid, plasma Collection Time: 10/18/24 2:26 AM Result Value Ref Range Lactate 0.8 0.5 - 2.2 mmol/L Magnesium Collection Time: 10/18/24 2:26 AM Result Value Ref Range Magnesium 2.0 1.9 - 2.7 mg/dL Troponin I Collection Time: 10/18/24 2:26 AM Result Value Ref Range Troponin (more content not included)... [facility] Discharge summary 05-16-2023 Note Date & Type Note Facility 05-16-2023 Discharge summary Note Date/Time May 16, 2023 9:24pm [facility] Medical Records Department [address] [place] [address] Emergency Department Summary 05/16/23 MR#: [id number] Acct: [id number] Name: CONSTANZA YOUNGBLOOD Rep #:[id number] : 1940 83 From: Otis Jalloh DO PCP: Dr. Joey Vidal MD Status: REG ER Location: ED HPI History of Present Illness Chief Complaint: Lower Extremity Injury Narrative Narrative: 83-year-old female presenting with left ankle pain. She states she bumped her ankle on the side of the fridge. She did not notice any pain when this happenedextra-depth swelling left lateral ankle and now it hurts. No numbness or tingling. No new injury after this. Otherwise healthy. [facility] Medical History Depressed Hyperlipidemia Hypertension Home Medications citalopram 20 mg tablet 40 mg PO DAILY 02/26/21 [History Last Taken Unknown] furosemide 20 mg tablet 20 mg PO DAILY 02/26/21 [History Last Taken Unknown] metoprolol succinate 50 mg tablet,extended release 24 hr 50 mg PO DAILY 02/26/21[History Last Taken Unknown] simvastatin 10 mg tablet 10 mg PO DAILY 02/26/21 [History Last Taken Unknown] Allergy/AdvReac Type Severity Reaction Status Date / Time No Known Allergies Allergy Verified 05/16/23 19:54 Surgical History History of appendectomy Hx of tubal ligation Social History Smoking Status: Current every day smoker tobacco type: cigarettes ROS ROS ED Constitutional Constitutional ED: Denies chills, fever(s) or sweats Eyes Eyes: Denies blurry vision or change in vision ENT ENT ED: Denies ear pain or sore throat Cardiovascular Cardiovascular: Denies chest pain, palpitations or racing heartbeat Respiratory/Chest Respiratory/Chest: Denies cough, dyspnea or sputum Gastrointestinal Gastrointestinal: Denies abdominal pain, constipation, diarrhea, nausea or vomiting Genitourinary Genitourinary ED: Denies dysuria, hematuria or urinary frequency Musculoskeletal Musculoskeletal: Reports other Details: Left ankle pain ; Denies arthralgias, myalgias or neck pain Integumentary Reports other; Denies abscess, Abrasions or rash Neurologic Neurologic: Reports other; Denies headache(s), paresthesias or weakness Psychiatric Psychiatric: Denies anxiety, depression, suicidal ideation or suicidal thoughts Endocrine Endocrinology: Denies polydipsia or polyuria EXAM Physical Exam Const Vital Signs: 05/16/23 19:47 Temperature 96.8 F L Temperature Source Temporal Pulse Rate 67 Respiratory Rate 18 Blood Pressure 142/67 H Blood Pressure Mean 92 Pulse Ox 98 Oxygen Delivery Method Room Air Positive well nourished General Appearance ED: NAD HEENT Reports moist mucous membranes normocephalic Cardio regular rate and regular rhythm Extremity Extremity Narrative: Tenderness to palpation and edema over the lateral malleolus of the left ankle. No palpable foot tenderness but there is some edema. No pain at the base of thefifth metatarsal. No testicular pain. Neuro oriented x3 and CN's II-XII intact bilaterally Sensorium / Orientation: alert Motor Exam: strength 5/5 throughout Skin no wounds MDM MDM MDM Narrative Medical decision making narrative: Patient presenting with left ankle pain. There are some edema in the foot as well. Will obtain ankle and foot x-ray. Differential includes ankle sprain, ankle fracture, foot contusion, foot fracture. Patient was given Naprosyn. Left ankle x-ray my interpretation is no acute fracture of the ankle. The foot x-ray my interpretation may show a tiny cortical avulsion fracture of the talus. Given this I will put her in a walking boot give her crutches. She will be given follow-up with Dr. Bingham. Impression: 1. Avulsion fracture of talus 2. Ankle sprain Radiography Diagnostic Testing: Clinical Impression(s) from Imaging Studies Ankle X-Ray 05/16/23 20:30 IMPRESSION: Mild lateral malleolus sprain.. No evidence for acute fracture or dislocation of the ankle. Cannot definitively exclude tiny cortical avulsion of the dorsal surface of the talus Electronically Signed: Teto Alvarado MD at 21:12 EDT , Foot X-Ray 05/16/23 20:40 IMPRESSION: Cannot exclude tiny cortical avulsion fracture of the dorsal talus. . Otherwise no evidence for acute fracture or dislocation Electronically Signed: Teto Alvarado MD at 21:21 EDT , Discharge Plan Triage Chief Complaint: Lower Extremity Injury ED Provider: Otis Jalloh Dx/Rx/DC Orders Instructions: ED Fracture, Foot, ED Ankle Sprain (Adult) Prescriptions: No Action metoprolol succinate 50 mg tablet extended release 24 hr 50 mg PO DAILY Patient Comments: TAKE 1 TABLET BY MOUTH DAILY simvastatin 10 mg tablet 10 mg PO DAILY Patient Comments: TAKE 1 TABLET BY MOUTH DAILY citalopram 20 mg tablet 40 mg PO DAILY Patient Comments: TAKE 1 & 1/2 TABLET BY MOUTH DAILY furosemide 20 mg tablet 20 mg PO DAILY Patient Comments: TAKE 1/2 TABLET BY MOUTH TWICE DAILY Primary Care Provider: Joey Vidal Referrals: Joey Vidal MD [Primary Care Provider] - Amadeo Bingham DPM [Med Staff - Active Staff] - 3-5 Days Disposition Disposition: Home, Self Care What to do if you have Problems For any increased pain, shortness of breath, bleeding, nausea or vomiting, chestpain, or any unexpected problems, contact your Primary Care Provider. Call [facility] ([phone]) or report to the closest Emergency Room. Call 911 if necessary. 05/16/232126 <Electronically signed by Otis Jalloh DO> Cosigner Signature (if applicable): CC: Dr. Joey Vidal MD ~ Signed [facility] Work Phone: Evaluation note Note Date & Type Note Facility Evaluation note No assessment information availa ble [facility] Work Phone: Summary Purpose Family History No Family History Records FoundNo Family History Records FoundNo Family History Records FoundNo Family History Records Found Advance Directives No Advanced Directives Records FoundDocuments on File Type Date Recorded Patient Sonographer Expl anation Advance Directives and Living Will Power of Janitorial Assistant Documents on File Type Date Recorded Patient Sonographer Expl anation ACP-Advance Directive ACP-Power of Janitorial Assistant Advance Directive Response Recorded Date/ Time Living Will Yes February 26, 2021 9 :39am Power of Janitorial Assistant Yes February 26, 2021 9:39am Advance Directive Response Recorded Date/ Time Living Will Yes May 16 7:56pm Power of Janitorial Assistant Yes May 16 023 7:56pm Name of Medical Power of Janitorial Assistant FARHAT JONES May 16, 2023 7:56pm Hospital Course Note MR#: [id number] [facility] Pt. Name: Constanza Wilson Admitted: 05/08/2019 Discharged: 05/11/2019 Date of : 1940 Physician: Deana Bridges MD DISCHARGE SUMMARY PRIMARY DIAGNOSES: Delirious, acute kidney injury, vitamin B12 deficiency. SECONDARY DIAGNOSES: Chronic atrial fibrillation, hypothyroidism. HISTORY OF PRESENT ILLNESS: This patient is a 79-year-old female with past medical history of dementia and chronic atrial fibrillation, who was sent to the emergency for evaluation after she reportedly had anxiety and panic attack. The staff there wanted psychiatric evaluation. The patient was a poor historian and history was taken from the son. She used to live independently in the [place]. Her son brought her over to [place] after she agreed to move. She was placed into an extended care facility. She was evaluated by Psychiatry in the emergency and recommended admission to [facility]; however, lab showed elevated creatinine and the patient was admi (more content not included)... Chief Complaint and Reason for Visit Chief Complaint L ankle Additional Source Comments INFORMATION SOURCE (unrecogn ized section and content) DATE CREATED AUTHOR 06/06/2019 [facility] DATE CREATED AUTHOR AUTHOR'S ORGANIZ ATION 10/29/2024 [facility] DATE CREATED AUTHOR AUTHOR'S ORGANIZ ATION 11/08/2024 [facility] DATE CREATED AUTHOR AUTHOR'S ORGANIZ ATION 03/04/2025 [facility] Care Teams (unrecognized sec tion and content) Team Status: Active Member Role Status Dates Dr. Joey Vidal MD Family Provider Active Dr. Joey Vidal MD Primary Care Provider Activ e Team Status: Inactive Member Role Status Dates Dr. Joey Vidal MD Primary Care Provider, Attending Provider, Referring Provider Active Team Status: Inactive Member Role Status Dates Dr. Joey Vidal MD Primary Care Provider Activ e Dr. Otis Jalloh DO Emergency Provider Active [employer] Teacher Relationship Specialty Start Date End Date Selvin Wrightca Ru PCP - General Family Medicine 04/11/23 [employer] Teacher Relationship Specialty Start Date End Date Tacos Wright PCP - General Family Medicine 04/11/23 [employer] Teacher Relationship Specialty Start Date End Date Selvin Wrightca Ru PCP - [facility] 04/11/23 [employer] Teacher Relationship Specialty Start Date End Date Selvin Wrightca Ru PCP - [facility] 04/11/23 [employer] Teacher Relationship Specialty Start Date End Date Selvin Wrightca Ru PCP - [facility] 04/11/23 Goals (unrecognized section and content) Goals may be documented in a n alternate sectionGoals may be documented in an alternate section FOR RECORDS PERTAINING TO PATIENTS WHO ARE OR HAVE BEEN ENROLLED IN A CHEMICAL DEPENDENCY/SUBSTANCEABUSE PROGRAM, SOME INFORMATION MAY BE OMITTED. This clinical summary was aggregated from multiple sources. Caution should be exercised in using it in the provision of clinical care. This summary normalizes information from multiple sources, and as a consequence, information in this document may materially change the coding, format and clinical context of patient data. In addition, data may be omitted in some cases. CLINICAL DECISIONS SHOULD BE BASED ON THE PRIMARY CLINICAL RECORDS. [employer] [facility]. provides no warranty or guarantee of the accuracy or completeness of information in this document.
[2025-09-10 10:18] LABS: Hematocrit 45.4 % (37-47); Hemoglobin 14.1 g/dL (12.0-15.0); Mean Corp Hgb Conc 31.1 g/dL (32-36); Mean Corpuscular Volume 87.1 fL (81-99); Mean Platelet Vol. 9.6 fl (6.2-12.0); Platelet Count 249 K/mm3 (150-450); RBC Distribution Width CV 13.5 % (11.6-14.6); RBC Distribution Width SD 43.3 fl (35.1-43.9); Red Blood Count 5.21 M/mm3 (4.2-5.4); White Blood Count 7.4 K/mm3 (4.4-11.0)
[2025-09-10 10:51] LABS: AST(SGOT) 21 U/L (<=31); Alanine Aminotransfer ALT/SGPT 17 U/L (<=34); Albumin, Serum 4.0 g/dL (3.4-4.8); Alkaline Phosphatase 68 U/L (35-104); Anion Gap 11 (5-15); BUN 22 mg/dL (4-19); BUN/Creat Ratio 20.9 RATIO (10-20); Bilirubin, Direct 0.25 mg/dL (0.00-0.30); Calcium,Total 9.7 mg/dL (7.6-11.0); Carbon Dioxide 28.9 mmol/L (21.0-32.0); Chloride 102 mmol/L (98-108); Globulin 2.9 g/dL (2.2-4.2); Glucose 102 mg/dL (70-99); Potassium 4.3 mmol/L (3.3-5.1)
== END | disposition home or self-care (01) ==
LOC: MFPLAB 08:37
PROVIDERS: PCP Family Medicine; Visit Provider Family Medicine
DX: I10 Essential (primary) hypertension (principal); G31.84 Mild cognitive impairment of uncertain or unknown etiology; R73.01 Impaired fasting glucose
CPT/HCPCS: 36415; 80048; 80076; 84443; 85027